=== PATIENT | female | born 1970 | race Caucasian/White ===

== ENCOUNTER 2021-03-29 15:44 | Inpatient (IN) ==
[2021-03-29] MEDS ORDERED: NS 1000 ML 1,000 ML IV ONE (16:06)
--- NOTE | 2021-03-29 16:06 | DR.NAUSEAF ---
HPI Time Seen Time Seen by Provider: 03/29/21 16:04 Primary Care Physician Primary Care Physician: NFD Complaints Chief Complaint:: PT C/O NAUSEA, VOMITING AND DIARRHEA X 1 MONTH.PT C/O DARK TARRY STOOL.. PT C/O PAIN INTO BILATERAL FLANK PAIN. COVID-19 Coronavirus risk:travel/contact w/high risk person: No Has patient experienced Coronavirus symptoms: No Reviewed Nurses Notes Reviewed: Yes Source History Provided: Patient Mode of Arrival Mode of Arrival: Ambulatory Timing Onset of Chief Complaint: 03/29/21 PMH PMH Past Medical History: No Past Medical History Comment: HEPATITIS B Past Surgical History: No Family History History of Family Medical Conditions: Yes Family Medical History: Cancer Social History Does patient currently use any type of tobacco product: Yes Have you used tobacco products in the last 12 months: Yes Type of Tobacco Use: Cigarettes Does any household member use tobacco: No Alcohol Use: Heavy Do you use any recreational Drugs:: No Lives With: Family Lives Where: Home Travel Risk Coronavirus risk:travel/contact w/high risk person: No Has patient experienced Coronavirus symptoms: No Infectious screening In the last 2 months have you had wt loss of >10#?: NO Have you had fever, night sweats or hemotysis?: No Have you traveled outside the country in the last 6 months?: No Isolation: Standard ROS Review of Systems Constitutional: See HPI, Weakness and Fatigue; negative Fever Eyes: No Symptoms Reported and See HPI ENTM: No Symptoms Reported and See HPI; negative Nose Discharge and Nose Congestion Respiratoy: No Symptoms Reported and See HPI; negative Moist Cough, Short of Breath and Wheezing Cardiovascular: No Symptoms Reported and See HPI; negative Chest Pain Gastrointestinal/Abdominal: See HPI, Abdominal Pain, Diarrhea, Nausea and Vom iting; negative Constipation Genitourinary: No Symptoms Reported and See HPI; negative Dysuria, Frequency and Hematuria Neurological: See HPI and Weakness; negative Headache and Dizziness Musculoskeletal: No Symptoms Reported, See HPI and Muscle Pain; negative Back Pain Integumentary: No Symptoms Reported and See HPI; negative Change in Color, Rash and Juandice Hematologic/Lymphatic: No Symptoms Reported and See HPI Endocrine: No Symptoms Reported and See HPI Psychiatric: No Symptoms Reported and See HPI All Other Systems: Reviewed and Negative PE Vital Signs Vitals: Temperature 98.5 F Pulse Rate 98 Respiratory Rate 20 Blood Pressure [Left Arm] 138/72 Blood Pressure [Right Arm] 138/78 Blood Pressure 140/82 O2 Sat by Pulse Oximetry 95 General Limitations: No Limitations General Appearance: Alert and In No Apparent Distress Head Head Exam: Normal Inspection Eyes Eye exam: Normal Appearance ENT ENT Exam: Normal Exam Neck Neck Exam: Normal Inspection Chest Chest Inspection: Normal Inspection Respiratory Respiratory Exam: Normal Lung Sounds Bilat Respiratory Exam: Bilateral: Clear to Auscultation Cardiovascular Cardiovascular Exam: Regular Rate and Normal Rhythm Abdominal Exam Abdominal Exam: Normal Inspection, Normal Bowel Sounds and Soft Rectal Rectal Exam: Deferred External Exam: Female: Deferred : Speculum Exam (Female): Deferred : Bimanual Exam (female): Deferred Extremities Extremities Exam: Normal Inspection Back Back Exam: Normal Inspection Neurologic Neurological Exam: Alert and Oriented X3 Psychiatric Psychiatric Exam: Normal Affect and Normal Mood Skin Skin Exam: Warm, Dry, Intact and Normal Color ROR Labs Reviewed Result Diagrams: 03/29/21 16:00 03/29/21 16:00 Laboratory: 03/29/21 19:28 Stool - Final WBC 19.1 X10^3/uL (3.6-10.0) H 03/29/21 16:00 RBC 4.56 X10^6/uL (3.5-5.4) 03/29/21 16:00 Hgb 14.4 g/dL (12.0-16.0) 03/29/21 16:00 Hct 41.6 % (36.0-47.0) 03/29/21 16:00 MCV 91.1 fL (80.0-100.0) 03/29/21 16:00 MCH 31.6 pg (27.0-34.0) 03/29/21 16:00 MCHC 34.6 g/dL (33.0-35.0) 03/29/21 16:00 RDW 13.8 % (11.6-16.5) 03/29/21 16:00 Plt Count 369 X10^3/uL (150.0-450.0) 03/29/21 16:00 MPV 7.1 fL (7.4-11.0) L 03/29/21 16:00 Neut % (Auto) 81.4 % (42.0-75.0) H 03/29/21 16:00 Lymph % (Auto) 6.9 % (21.0-51.0) L 03/29/21 16:00 [place] % (Auto) 10.7 % (0.0-13.0) 03/29/21 16:00 Eos % (Auto) 0.5 % (0.9-2.9) L 03/29/21 16:00 Baso % (Auto) 0.5 % (0.2-1.0) 03/29/21 16:00 Neut # (Auto) 15.6 x10^3/uL (2.2-4.8) H 03/29/21 16:00 Lymph # (Auto) 1.3 X10^3/uL (1.3-2.9) 03/29/21 16:00 [place] # (Auto) 2.0 x10^3/uL (0.3-0.8) H 03/29/21 16:00 Eos # (Auto) 0.1 x10^3/uL (0.0-0.2) 03/29/21 16:00 Baso # (Auto) 0.1 X10^3/uL (0.0-0.1) 03/29/21 16:00 Absolute Nucleated RBC 0.0 /100WBC 03/29/21 16:00 Sodium 136 mmol/L (136-145) 03/29/21 16:00 Corrected Sodium 137 mmol/L (136-145) 03/29/21 16:00 Potassium 3.5 mmol/L (3.5-5.1) 03/29/21 16:00 Chloride 98 mmol/L (98-107) 03/29/21 16:00 Carbon Dioxide 23.6 mmol/L (21-32) 03/29/21 16:00 BUN 5 mg/dL (7-18) L 03/29/21 16:00 Creatinine 0.65 mg/dL (0.55-1.02) 03/29/21 16:00 Est GFR (MDRD) Af Amer > 60 (>60) 03/29/21 16:00 Est GFR (MDRD) Non-Af > 60 (>60) 03/29/21 16:00 Glucose 131 mg/dL (65-99) H 03/29/21 16:00 Calcium 8.6 mg/dL (8.5-10.1) 03/29/21 16:00 Corrected Calcium 9.4 mg/dL (8.5-10.1) 03/29/21 16:00 Total Bilirubin 0.50 mg/dL (0.2-1.0) 03/29/21 16:00 AST 19 Units/L (15-37) 03/29/21 16:00 ALT 18 Units/L (12-78) 03/29/21 16:00 Alkaline Phosphatase 160 Units/L (46-116) H 03/29/21 16:00 Total Protein 8.1 g/dL (6.4-8.2) 03/29/21 16:00 Albumin 3.0 g/dL (3.4-5.0) L 03/29/21 16:00 Globulin 5.1 g/dL (2.5-4.5) H 03/29/21 16:00 Albumin/Globulin Ratio 0.6 Ratio (1.1-2.1) L 03/29/21 16:00 Amylase 26 Units/L (25-115) 03/29/21 16:00 Lipase 100 Units/L (73-393) 03/29/21 16:00 Specimen Type Clean catch urine 03/29/21 18:15 Urine Color Yellow (YELLOW) 03/29/21 18:15 Urine Appearance Clear (CLEAR) 03/29/21 18:15 Urine pH 6.0 (5.0 - 8.0) 03/29/21 18:15 Ur Specific [place] 1.010 (1.000-1.030) 03/29/21 18:15 Urine Protein Negative (NEGATIVE) 03/29/21 18:15 Urine Glucose (UA) Negative (NEGATIVE) 03/29/21 18:15 Urine Ketones Negative (NEGATIVE) 03/29/21 18:15 Urine Occult Blood Negative (NEGATIVE) 03/29/21 18:15 Urine Nitrite Negative (NEGATIVE) 03/29/21 18:15 Urine Bilirubin Negative (NEGATIVE) 03/29/21 18:15 Urine Urobilinogen 1+ (NORMAL) 03/29/21 18:15 Ur Leukocyte Esterase Negative (NEGATIVE) 03/29/21 18:15 Urine RBC 0-2 /HPF (0-3) 03/29/21 18:15 Urine WBC None seen /HPF (0-5) 03/29/21 18:15 Ur Squamous Epith Cells Few /HPF (NEGATIVE) 03/29/21 18:15 Urine Bacteria 1+ /HPF (NEGATIVE) 03/29/21 18:15 Ur Culture Indicated? No/not indicated 03/29/21 18:15 Stool Description 20g liquid brown 03/29/21 19:28 Stool Description 20g liquid brown 03/29/21 19:28 Stl Occult Blood (IFOB) Positive (NEGATIVE) A 03/29/21 19:28 Stool for White Cells Positive (NEGATIVE) A 03/29/21 19:28 Stl C. diff Tox B Gene Negative (NEGATIVE) 03/29/21 19:28 Stl C. diff [id number]-[id number] Presumptive negative (NEGATIVE) 03/29/21 19:28 Stool H. pylori Ag Negative (NEGATIVE) 03/29/21 19:28 Cryptosporid parvum Ag Negative (NEGATIVE) 03/29/21 19:28 Giardia lamblia Ag Positive (NEGATIVE) A 03/29/21 19:28 SARS CoV-2 RNA Rapid KYLIE Negative (NEGATIVE) 03/29/21 21:40 Opioid Opioid Risk Tool Age (Arie box if 16-45): No History of Preadolescent Sexual Abuse: No Total: 0 Total Score Risk Category: Low Risk Copyright: Migue SANCHEZ predicting aberrant behaviors Instructions Forms: Precautions for COVID19 Patient Portal Social Distancing
[2021-03-29] MEDS ORDERED: ZOFRAN INJ 4 MG VIAL IVP ONE (16:08)
[2021-03-29] MEDS ORDERED: PEPCID 20 MG IV PREMIX* 20 MG/50 ML BAG IV ONE ×2 (16:08→16:14)
[2021-03-29] MEDS ORDERED: ZOFRAN INJ 4 MG VIAL ONE (16:14)
[2021-03-29] MEDS ORDERED: NS 1000 ML 1,000 ML ONE ×2 (16:14→21:51)
[2021-03-29 16:22] LABS: BASOPHILS # (AUTO) 0.1 X10^3/uL (0.0-0.1); BASOPHILS % (AUTO) 0.5 % (0.2-1.0); EOSINOPHILS # (AUTO) 0.1 x10^3/uL (0.0-0.2); EOSINOPHILS % (AUTO) 0.5 % (0.9-2.9); HEMATOCRIT 41.6 % (36.0-47.0); HEMOGLOBIN 14.4 g/dL (12.0-16.0); LYMPHOCYTES # (AUTO) 1.3 X10^3/uL (1.3-2.9); LYMPHOCYTES % (AUTO) 6.9 % (21.0-51.0); MEAN CORPUSCULAR HEMOGLOBIN 31.6 pg (27.0-34.0); MEAN CORPUSCULAR HGB CONC 34.6 g/dL (33.0-35.0); MEAN CORPUSCULAR VOLUME 91.1 fL (80.0-100.0); MEAN PLATELET VOLUME 7.1 fL (7.4-11.0); MONOCYTES % (AUTO) 10.7 % (0.0-13.0); NEUTROPHILS # (AUTO) 15.6 x10^3/uL (2.2-4.8); NEUTROPHILS % (AUTO) 81.4 % (42.0-75.0); PLATELET COUNT 369 X10^3/uL (150.0-450.0); RED BLOOD COUNT 4.56 X10^6/uL (3.5-5.4); RED CELL DISTRIBUTION WIDTH 13.8 % (11.6-16.5); WHITE BLOOD COUNT 19.1 X10^3/uL (3.6-10.0)
[2021-03-29 16:30] LABS: ALANINE AMINOTRANSFERASE 18 Units/L (12-78); ALKALINE PHOSPHATASE 160 Units/L (46-116); AMYLASE 26 Units/L (25-115); ASPARTATE AMINO TRANSFERASE 19 Units/L (15-37); BLOOD UREA NITROGEN 5 mg/dL (7-18); CALCIUM 8.6 mg/dL (8.5-10.1); CARBON DIOXIDE 23.6 mmol/L (21-32); CHLORIDE 98 mmol/L (98-107); COR CA(FOR HYPOALB) 9.4 mg/dL (8.5-10.1); COR NA(FOR HYPERGLY) 137 mmol/L (136-145); CREATININE 0.65 mg/dL (0.55-1.02); LIPASE 100 Units/L (73-393); SODIUM 136 mmol/L (136-145); TOTAL PROTEIN 8.1 g/dL (6.4-8.2); eGFR NON BLACK RACES > 60 (>60)
[2021-03-29] MEDS ORDERED: NS 100 ML IV 100 ML ONE (16:48)
[2021-03-29 18:41] LABS: BILIRUBIN,URINE NEGATIVE (NEGATIVE); BLOOD/HEMOGLOBIN,URINE NEGATIVE (NEGATIVE); GLUCOSE, URINE NEGATIVE (NEGATIVE); KETONES,URINE NEGATIVE (NEGATIVE); LEUKOCYTE ESTERASE ,URINE NEGATIVE (NEGATIVE); NITRITES,URINE NEGATIVE (NEGATIVE); PROTEIN,URINE NEGATIVE (NEGATIVE); UROBILINOGEN,URINE 1+ (NORMAL)
[2021-03-29 18:45] LABS: APPEARANCE,URINE CLEAR (CLEAR); COLOR,URINE YELLOW (YELLOW)
[2021-03-29 18:49] LABS: RBC,URINE 0-2 /HPF (0-3)
[2021-03-29 18:50] LABS: BACTERIA,URINE 1+ /HPF (NEGATIVE); SQUAMOUS EPITHELIAL CELL,UR FEW /HPF (NEGATIVE)
--- NOTE | 2021-03-29 19:42 | CT ---
EXAM: CT ABDOMEN AND PELVIS WITH INTRAVENOUS CONTRASTHISTORY: Nausea, vomiting, and diarrhea x1 month. Bilateral flank pain. Dark tarry stool.TECHNIQUE: Spiral axial CT images are obtained through the abdomen and pelvis with the administration of oral contrast and intravenous contrast. Additional coronal and sagittal reformatted images are reconstructed.DOSIMETRY: Total DLP 492.6 mGycm; CTDI 4.7 mGyCOMPARISON: None available.FINDINGS:GASTROINTESTINAL TRACT: There is diffuse thickening of the gastric wall, especially the mid body of the stomach, with perigastric stranding; DDx includes gastritis and infiltrating neoplastic disease (rule out lienitis plastica/scirrhous adenocarcinoma). There is focal circumferential thickening (up to 1.2 cm) and up to 5.2 cm dilatation without the distal transverse colon (abutting the greater curvature of the stomach); DDx includes infectious colitis; cannot rule out infiltrating neoplastic disease (colon cancer). There is evidence for direct communication/fistula between the thickened greater curvature of the body of the stomach and thickened segment of the distal transverse colon (axial image 19?22; sagittal image 18?20; coronal image 14?17, with oral contrast within the stomach as well as the large bowel loops. Clinical correlation is advised. A normal-appearing appendix is seen. No evidence for diverticulosis or diverticulitis is seen.There is no evidence for bowel herniation, bowel obstruction, colitis or diverticulitis. A normal-appearing appendix is seen.GENITOURINARY SYSTEM: The kidneys are unremarkable. There is no ureteral calculus or stigmata of obstructive uropathy. The urinary bladder is grossly unremarkable for a non-dedicated exam.REPRODUCTIVE SYSTEM: The uterus and adnexa appear grossly unremarkable for a CT scan. Consider follow-up dedicated imaging as clinically warranted.CT ABDOMEN: Aortoiliac atherosclerotic disease, without aneurysm formation or dissection. The liver, spleen, pancreas, adrenal glands, gallbladder, and inferior vena cava are within normal limits for a CT scan. There is no intra-abdominal or retroperitoneal lymphadenopathy, free fluid, or free air seen. No abdominal herniation is noted.CT PELVIS: The visualized bony structures are within normal limits. No pelvic sidewall or inguinal lymphadenopathy is seen. No inguinal herniation is noted. No free fluid or free air is seen.LUNG BASES: The lung bases are clear.IMPRESSION:1. Diffuse thickening of the gastric wall, especially the mid body of the stomach, with perigastric stranding; DDx includes gastritis and infiltrating neoplastic disease (rule out lienitis plastica/scirrhous adenocarcinoma).2. Focal (approximately 9 cm long) circumferential thickening (up to 1.2 cm) and up to 5.2 cm dilatation without the distal transverse colon (abutting the greater curvature of the stomach); DDx includes infectious colitis; cannot rule out infiltrating neoplastic disease (colon cancer).3. Evidence for direct communication/fistula between the thickened greater curvature of the body of the stomach and thickened segment of the distal transverse colon (axial image 19?22; sagittal image 18?20; coronal image 14?17, with oral contrast within the stomach as well as the large bowel loops. Clinical correlation is advised.4. No evidence for pyelonephritis, renal stone disease or obstructive uropathy.5. No free fluid, free air, mass lesions, or lymphadenopathy seen.Electronically signed by: Moshe Vigil (Mar 29, 2021 19:41:03)
[2021-03-29 20:14] LABS: CRYPTOSPORIDIUM PARVUM ANTIGEN NEGATIVE (NEGATIVE)
[2021-03-29 20:15] LABS: GIARDIA LAMBLIA ANTIGEN POSITIVE (NEGATIVE)
[2021-03-29] MEDS ORDERED: FLAGYL IV PREMIX 500 MG BAG 500 MG/100 ML BAG IV ONE ×2 (21:39→21:50)
[2021-03-29] MEDS ORDERED: LIBRIUM PO ONE ×2 (21:40→21:49)
[2021-03-29] MEDS: NS 1000 ML 1,000 ML IV SCH (22:02)
[2021-03-29 23:27] VITALS: BMI 20.7
[2021-03-30] MEDS ORDERED: NICOTINE PATCH TD ONE (00:36)
[2021-03-30] MEDS ORDERED: VANCOMYCIN IV *PREMIX 1 G/200 ML BAG 1 G/200 ML PIGGYBACK IV SCH (01:02)
[2021-03-30] MEDS ORDERED: ATIVAN INJ 2 MG VIAL IVP PRN (01:04)
[2021-03-30] MEDS ORDERED: PHARMACY CONSULT - VANCOMYCIN XX SCH (02:00)
[2021-03-30 05:39] LABS: BASOPHILS % (AUTO) 0.4 % (0.2-1.0); EOSINOPHILS # (AUTO) 0.1 x10^3/uL (0.0-0.2); EOSINOPHILS % (AUTO) 0.9 % (0.9-2.9); HEMATOCRIT 34.3 % (36.0-47.0); LYMPHOCYTES # (AUTO) 1.2 X10^3/uL (1.3-2.9); LYMPHOCYTES % (AUTO) 9.4 % (21.0-51.0); MEAN CORPUSCULAR HEMOGLOBIN 31.2 pg (27.0-34.0); MEAN CORPUSCULAR HGB CONC 34.3 g/dL (33.0-35.0); MEAN CORPUSCULAR VOLUME 91.1 fL (80.0-100.0); MEAN PLATELET VOLUME 7.5 fL (7.4-11.0); MONOCYTES # (AUTO) 1.2 x10^3/uL (0.3-0.8); MONOCYTES % (AUTO) 9.6 % (0.0-13.0); NEUTROPHILS % (AUTO) 79.7 % (42.0-75.0); PLATELET COUNT 271 X10^3/uL (150.0-450.0); RED BLOOD COUNT 3.76 X10^6/uL (3.5-5.4); RED CELL DISTRIBUTION WIDTH 13.9 % (11.6-16.5); WHITE BLOOD COUNT 12.5 X10^3/uL (3.6-10.0)
[2021-03-30] MEDS: FLAGYL IV PREMIX 500 MG BAG 500 MG/100 ML BAG IV SCH ×4 (05:46→21:10)
[2021-03-30 05:47] LABS: HEMOGLOBIN 11.7 g/dL (12.0-16.0)
[2021-03-30] MEDS: NICOTINE PATCH TD SCH ×2 (05:47→09:10)
[2021-03-30 06:00] LABS: ALANINE AMINOTRANSFERASE 12 Units/L (12-78); ALBUMIN 2.3 g/dL (3.4-5.0); ALKALINE PHOSPHATASE 118 Units/L (46-116); ASPARTATE AMINO TRANSFERASE 13 Units/L (15-37); BLOOD UREA NITROGEN 4 mg/dL (7-18); CALCIUM 7.9 mg/dL (8.5-10.1); CARBON DIOXIDE 22.8 mmol/L (21-32); CHLORIDE 105 mmol/L (98-107); COR CA(FOR HYPOALB) 9.3 mg/dL (8.5-10.1); CREATININE 0.38 mg/dL (0.55-1.02); MAGNESIUM 1.5 mg/dL (1.7-2.9); SODIUM 139 mmol/L (136-145); TOTAL PROTEIN 6.1 g/dL (6.4-8.2); eGFR NON BLACK RACES > 60 (>60)
[2021-03-30] MEDS: NS 1000 ML 1,000 ML IV SCH ×2 (06:00→17:45)
[2021-03-30] MEDS: VANCOMYCIN HCL 1 G in D5W 250 ML IV 250 ML IV SCH ×2 (06:19→18:58)
[2021-03-30] MEDS: ZOSYN VIAL 3.375 GRAMS 3.375 G in NS 100 ML IV + SPIKE MINIBAG* 100 ML IV SCH ×2 (06:23→06:24)
[2021-03-30] MEDS: NS 1000 ML 1,000 ML with MAGNESIUM SULFATE 50% INJ VIAL 1 G, MVI INJ (ADULT) 10 ML IV SCH ×3 (06:32)
[2021-03-30] MEDS: PROTONIX TAB 40 MG PO SCH (09:11)
--- NOTE | 2021-03-30 11:15 | DR.H&P ---
H&P History & Physical for Day of: H&P Date: 03/30/21 Chief Complaint Chief Complaint: Presented with abdominal pain diarrhea. Allergies Allergies Allergy/AdvReac Type Severity Reaction Status Date / Time acetaminophen [From [facility]] Allergy Verified 06/11/20 17:31 hydrocodone [From [facility]] Allergy Verified 06/11/20 17:31 penicillin G Allergy Verified 06/11/20 17:31 History of Present Illness History of Present Illness: 50-year-old female history of cigarette abuse, 3 packs today, and alcohol abuse, up to a 12 pack of beer daily events emergency room complaining of nausea vomiting diarrhea was some mild abdominal pain. 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 Past Medical History Past Medical History: Liver Disease (Hepatitis B) Family History Family Medical History: Cancer and Hypertension Social History Does patient currently use any type of tobacco product: Yes Have you used tobacco products in the last 12 months: Yes Type of Tobacco Use: Cigarettes How many years tobacco product used: 30 Packs per day or dips/chews per day: 3 Does any household member use tobacco: No Alcohol Use: Heavy and DAILY Drug Use: None Medications Home Medications: acetaminophen [From [facility]] Allergy (Verified 06/11/20 17:31) hydrocodone [From [facility]] Allergy (Verified 06/11/20 17:31) penicillin G Allergy (Verified 06/11/20 17:31) CONTINUE taking the following medications NK 03/30/21 [History] Labs Result Diagrams: 03/30/21 04:18 03/30/21 04:18 Labs: 03/29/21 19:28 Stool Stool Culture - Preliminary 03/29/21 19:28 Stool - Final Laboratory WBC 12.5 X10^3/uL (3.6-10.0) H 03/30/21 04:18 RBC 3.76 X10^6/uL (3.5-5.4) 03/30/21 04:18 Hgb 11.7 g/dL (12.0-16.0) L D 03/30/21 04:18 Hct 34.3 % (36.0-47.0) L 03/30/21 04:18 MCV 91.1 fL (80.0-100.0) 03/30/21 04:18 MCH 31.2 pg (27.0-34.0) 03/30/21 04:18 MCHC 34.3 g/dL (33.0-35.0) 03/30/21 04:18 RDW 13.9 % (11.6-16.5) 03/30/21 04:18 Plt Count 271 X10^3/uL (150.0-450.0) 03/30/21 04:18 MPV 7.5 fL (7.4-11.0) 03/30/21 04:18 Neut % (Auto) 79.7 % (42.0-75.0) H 03/30/21 04:18 Lymph % (Auto) 9.4 % (21.0-51.0) L 03/30/21 04:18 [place] % (Auto) 9.6 % (0.0-13.0) 03/30/21 04:18 Eos % (Auto) 0.9 % (0.9-2.9) 03/30/21 04:18 Baso % (Auto) 0.4 % (0.2-1.0) 03/30/21 04:18 Neut # (Auto) 10.0 x10^3/uL (2.2-4.8) H 03/30/21 04:18 Lymph # (Auto) 1.2 X10^3/uL (1.3-2.9) L 03/30/21 04:18 [place] # (Auto) 1.2 x10^3/uL (0.3-0.8) H 03/30/21 04:18 Eos # (Auto) 0.1 x10^3/uL (0.0-0.2) 03/30/21 04:18 Baso # (Auto) 0.0 X10^3/uL (0.0-0.1) 03/30/21 04:18 Absolute Nucleated RBC 0.0 /100WBC 03/30/21 04:18 PT 12.6 SECONDS (11.8-14.3) 03/30/21 04:18 INR Target Range - 03/30/21 04:18 INR 0.99 (0.8-1.3) 03/30/21 04:18 APTT 34.0 SECONDS (22.9-36.5) 03/30/21 04:18 PTT Comment - 03/30/21 04:18 Sodium 139 mmol/L (136-145) 03/30/21 04:18 Corrected Sodium TNP 03/30/21 04:18 Potassium 3.3 mmol/L (3.5-5.1) L 03/30/21 04:18 Chloride 105 mmol/L (98-107) 03/30/21 04:18 Carbon Dioxide 22.8 mmol/L (21-32) 03/30/21 04:18 BUN 4 mg/dL (7-18) L 03/30/21 04:18 Creatinine 0.38 mg/dL (0.55-1.02) L 03/30/21 04:18 Est GFR (MDRD) Af Amer > 60 (>60) 03/30/21 04:18 Est GFR (MDRD) Non-Af > 60 (>60) 03/30/21 04:18 Glucose 87 mg/dL (65-99) 03/30/21 04:18 Calcium 7.9 mg/dL (8.5-10.1) L 03/30/21 04:18 Corrected Calcium 9.3 mg/dL (8.5-10.1) 03/30/21 04:18 Magnesium 1.5 mg/dL (1.7-2.9) L 03/30/21 04:18 Total Bilirubin 0.50 mg/dL (0.2-1.0) 03/30/21 04:18 AST 13 Units/L (15-37) L 03/30/21 04:18 ALT 12 Units/L (12-78) 03/30/21 04:18 Alkaline Phosphatase 118 Units/L (46-116) H 03/30/21 04:18 Total Protein 6.1 g/dL (6.4-8.2) L 03/30/21 04:18 Albumin 2.3 g/dL (3.4-5.0) L 03/30/21 04:18 Globulin 3.8 g/dL (2.5-4.5) 03/30/21 04:18 Albumin/Globulin Ratio 0.6 Ratio (1.1-2.1) L 03/30/21 04:18 Amylase 26 Units/L (25-115) 03/29/21 16:00 Lipase 100 Units/L (73-393) 03/29/21 16:00 Specimen Type Clean catch urine 03/29/21 18:15 Urine Color Yellow (YELLOW) 03/29/21 18:15 Urine Appearance Clear (CLEAR) 03/29/21 18:15 Urine pH 6.0 (5.0 - 8.0) 03/29/21 18:15 Ur Specific [place] 1.010 (1.000-1.030) 03/29/21 18:15 Urine Protein Negative (NEGATIVE) 03/29/21 18:15 Urine Glucose (UA) Negative (NEGATIVE) 03/29/21 18:15 Urine Ketones Negative (NEGATIVE) 03/29/21 18:15 Urine Occult Blood Negative (NEGATIVE) 03/29/21 18:15 Urine Nitrite Negative (NEGATIVE) 03/29/21 18:15 Urine Bilirubin Negative (NEGATIVE) 03/29/21 18:15 Urine Urobilinogen 1+ (NORMAL) 03/29/21 18:15 Ur Leukocyte Esterase Negative (NEGATIVE) 03/29/21 18:15 Urine RBC 0-2 /HPF (0-3) 03/29/21 18:15 Urine WBC None seen /HPF (0-5) 03/29/21 18:15 Ur Squamous Epith Cells Few /HPF (NEGATIVE) 03/29/21 18:15 Urine Bacteria 1+ /HPF (NEGATIVE) 03/29/21 18:15 Ur Culture Indicated? No/not indicated 03/29/21 18:15 Stool Description 20g liquid brown 03/29/21 19:28 Stool Description 20g liquid brown 03/29/21 19:28 Stl Occult Blood (IFOB) Positive (NEGATIVE) A 03/29/21 19:28 Stool for White Cells Positive (NEGATIVE) A 03/29/21 19:28 Stl C. diff Tox B Gene Negative (NEGATIVE) 03/29/21 19:28 Stl C. diff [id number] Presumptive negative (NEGATIVE) 03/29/21 19:28 Stool H. pylori Ag Negative (NEGATIVE) 03/29/21 19:28 Cryptosporid parvum Ag Negative (NEGATIVE) 03/29/21 19:28 Giardia lamblia Ag Positive (NEGATIVE) A 03/29/21 19:28 SARS CoV-2 RNA Rapid KYLIE Negative (NEGATIVE) 03/29/21 21:40 Review of Systems Constitutional: No Symptoms Reported Eyes: No Symptoms Reported Gastrointestinal: Nausea, Diarrhea and Hematochezia (described as dark) Physical Exam Vital Signs: Temperature 97.6 F Pulse Rate [Right Brachial] 78 Pulse Rate 98 Respiratory Rate 18 Blood Pressure [Left Arm] 143/72 Blood Pressure [Right Arm] 138/78 Blood Pressure 140/82 O2 Sat by Pulse Oximetry 98 Oriented: Normal, Time, Person and Place Eyes: Normal and Other (no scleral icterus) Ear: Normal Respiratory: Clear Throughout Cardiovascular: Normal : Normal Auscultation: Bowel Sounds: Normal Palpation: Other (mild tenderness to LUQ) Skin: Normal Musculoskeletal: Normal Psychiatric: Normal Mood Description: Calm Speech Pattern: Clear Review H&P Reviewed: Yes Patient was examined?: Yes
[2021-03-30] MEDS ORDERED: CITROMA PO ONE (11:27)
[2021-03-30] MEDS ORDERED: DULCOLAX TAB EC 5 MG PO ONE (11:29)
--- NOTE | 2021-03-30 13:35 | NOTE.SOAP ---
Soap Note Note for Day of Date of Exam: 03/30/21 Subjective Data Subjective Data: Taking clear liquids and performing bowel prep with little complaints. Started on nicotine patch. Objective Data Temperature: 97.6 F Pulse Rate: 78 Respiratory Rate: 18 Blood Pressure: 143/72 O2 Sat by Pulse Oximetry: 98 Objective Data: Benign abdomen Assessment Assessment: Question of fistula between stomach , greater curvature and transverse colon. Plan Plan: EGD and colonoscopy tomorrow with possible biopsy.
[2021-03-30] MEDS: CITROMA PO SCH (17:46)
[2021-03-31] MEDS: FLAGYL IV PREMIX 500 MG BAG 500 MG/100 ML BAG IV SCH ×4 (02:13→20:45)
[2021-03-31] MEDS ORDERED: KETALAR ONE (04:36)
[2021-03-31] MEDS ORDERED: XYLOCAINE 2 % (PLAIN) ONE (04:36)
[2021-03-31] MEDS ORDERED: VERSED ONE (04:36)
[2021-03-31] MEDS ORDERED: DIPRIVAN VIAL ONE (04:36)
[2021-03-31] MEDS: VANCOMYCIN HCL 1 G in D5W 250 ML IV 250 ML IV SCH ×2 (05:52→19:46)
[2021-03-31] MEDS: NS 1000 ML 1,000 ML with MAGNESIUM SULFATE 50% INJ VIAL 1 G, MVI INJ (ADULT) 10 ML IV SCH ×3 (05:52)
[2021-03-31] MEDS: NS 1000 ML 1,000 ML IV SCH ×2 (05:53→18:36)
[2021-03-31] MEDS ORDERED: D5 LR 1000 ML 1,000 ML IV ONE (07:10)
--- NOTE | 2021-03-31 08:22 | OR.IMMED ---
IMMEDIATE POST-OP NOTE Immediate Post-Op Note Pre-Op Diagnosis: inflammation of left transverse colon and greater curve of st omach, possible fistula Post-Op Diagnosis: No obvious fistula, No stomach mass or fistula obvious, transverse colon/mass with near complete obstruction. Procedure: EGD and biopsy for h. pylori, colonoscopy and multiple biopsies of transverse colon mass Description of Procedure: see operative summary Surgeon/Student Services Coordinator: Alejandrina Findings: as above Specimens Removed: as above Estimated Blood Loss: none Drains: NONE Complications: none Progress Notes: to floor , probably will need resection of this area of colon Condition: Stable Final Diagnosis: transverse colon mass.
[2021-03-31] MEDS: NICOTINE PATCH TD SCH (09:24)
[2021-03-31] MEDS: PROTONIX TAB 40 MG PO SCH (09:24)
--- NOTE | 2021-03-31 10:30 | NOTE.SOAP ---
Soap Note Note for Day of Date of Exam: 03/31/21 Subjective Data Subjective Data: As EGD and colonoscopy today. Nothing seen in the stomach consistent with a fistula. Area of mass effect with ischemic change of the transverse colon. Multiple biopsies obtained. Near-complete obstruction. Objective Data Temperature: 97.9 F Pulse Rate: 78 Respiratory Rate: 18 Blood Pressure: 132/85 O2 Sat by Pulse Oximetry: 99 Objective Data: Benign abdomen on exam. Assessment Assessment: Mass effect of the transverse colon with abutment of the stomach. Concerned that this is carcinoma. No obvious had Sonja on CT scan. Near- complete obstruction of the colon. I cannot get the, scope through the area of obstruction. Plan Plan: Discussed with the patient and her . She will require resection of this area the transverse colon. I will probably do it in open fashion as she is thin and I can better evaluate the stomach. Pathology is pending but the fact that she is near-complete obstruction of the colon requires surgical intervention now. I discussed the risk and benefits with the patient and her . Will do po bowel prep with P.O. Erythromycin and Neomycin.Has already had mechanical prep.
--- NOTE | 2021-03-31 14:14 | DR.OPNOTE ---
OP NOTE Pre-Op Diagnosis: gastric vs transverse colon mass , possible gastro-colic fistula Post-Op Diagnosis: Colon mass vs ischemic colon with near complete obstruction Procedure Date Date Of Procedure: 03/31/21 Procedure: This patient was taken to the endoscopy suite and placed in the left lower position. Timeout for the procedure obtained. Bite block was placed and the flexible scope introduced into the mouth and into the esophagus. The esophagus was normal as was the gastroesophageal junction. The body of the stomach showed mild inflammation. The duodenum and pylorus were normal. Biopsy obtained of the antrum for H. pylori testing. J maneuver carried out showing no obvious fistula in the stomach. This scope was withdrawn. Patient was turned around and the flexible colonoscope introduced into the anus . On encountering the area in question of the transverse colon it was difficult getting into this area . Once I entered the area it appeared to be a mass with evidence of an ischemia center. Multiple biopsies were obtained. T here was a small area of exit from the mass effect but I could not get the scope through it. This is consistent with near-complete obstruction. No obvious fistula was present. Endoscope was withdrawn slowly showing only some mild sigmoid diverticulosis. Anesthesia Comment: MAC Findings: Stomach showed mild inflammation but no obvious fistula. Colonoscopy revealed ischemic area transverse colon versus mass. There is near-complete obstruction and I could not get beyond this area. Multiple biopsies obtained of the suspicious area of the colon. Biopsy obtained of the stomach for H.pylori testing. Specimen/Pathology: Multiple biopsies of suspicious area of colon , biopsy of stomach for H. pylori testing. EBL: none Complications:: none Disposition/Condition: Pt. tolerated procedure without difficulty. Taken to PACU in stable condition then to floor.
[2021-03-31] MEDS ORDERED: PHARMACY COMMENT IV NR (17:30)
[2021-03-31] MEDS: CITROMA PO SCH (18:36)
[2021-04-01] MEDS: FLAGYL IV PREMIX 500 MG BAG 500 MG/100 ML BAG IV SCH ×4 (03:20→20:23)
[2021-04-01] MEDS: NS 1000 ML 1,000 ML with MAGNESIUM SULFATE 50% INJ VIAL 1 G, MVI INJ (ADULT) 10 ML IV SCH ×6 (04:05→14:58)
[2021-04-01] MEDS ORDERED: MAGNESIUM SULFATE 50% INJ VIAL ONE (05:11)
[2021-04-01] MEDS: VANCOMYCIN HCL 1 G in D5W 250 ML IV 250 ML IV SCH ×2 (05:18→18:07)
[2021-04-01] MEDS: NICOTINE PATCH TD SCH (09:30)
[2021-04-01] MEDS: PROTONIX TAB 40 MG PO SCH (09:30)
[2021-04-01 12:01] LABS: BASOPHILS % (AUTO) 0.4 % (0.2-1.0); EOSINOPHILS # (AUTO) 0.2 x10^3/uL (0.0-0.2); EOSINOPHILS % (AUTO) 2.5 % (0.9-2.9); HEMATOCRIT 33.8 % (36.0-47.0); HEMOGLOBIN 11.5 g/dL (12.0-16.0); LYMPHOCYTES # (AUTO) 1.1 X10^3/uL (1.3-2.9); LYMPHOCYTES % (AUTO) 11.4 % (21.0-51.0); MEAN CORPUSCULAR HEMOGLOBIN 31.5 pg (27.0-34.0); MEAN CORPUSCULAR HGB CONC 34.2 g/dL (33.0-35.0); MEAN CORPUSCULAR VOLUME 92.1 fL (80.0-100.0); MEAN PLATELET VOLUME 6.7 fL (7.4-11.0); MONOCYTES # (AUTO) 1.1 x10^3/uL (0.3-0.8); MONOCYTES % (AUTO) 11.6 % (0.0-13.0); NEUTROPHILS # (AUTO) 6.9 x10^3/uL (2.2-4.8); NEUTROPHILS % (AUTO) 74.1 % (42.0-75.0); PLATELET COUNT 279 X10^3/uL (150.0-450.0); RED BLOOD COUNT 3.67 X10^6/uL (3.5-5.4); RED CELL DISTRIBUTION WIDTH 13.7 % (11.6-16.5); WHITE BLOOD COUNT 9.3 X10^3/uL (3.6-10.0)
[2021-04-01] MEDS: NEOMYCIN 500 MG PO SCH ×3 (13:58→22:31)
--- NOTE | 2021-04-01 18:44 | RAD ---
CHEST, 1 VIEWHISTORY: PRE OP EVAL FOR BOWEL RESECTIONStudy: Single view of the chest.Comparison:NoneFindings:The cardiomediastinal silhouette is normal.No focal consolidations, pleural effusions or pneumothorax. Osseous structures demonstrate no acute abnormality.IMPRESSION:1. No acute cardiopulmonary process.Electronically signed by: DAVIDE HOOVER (Apr 01, 2021 18:42:37)
[2021-04-02] MEDS: NS 1000 ML 1,000 ML with MAGNESIUM SULFATE 50% INJ VIAL 1 G, MVI INJ (ADULT) 10 ML IV SCH ×3 (02:43)
[2021-04-02] MEDS: FLAGYL IV PREMIX 500 MG BAG 500 MG/100 ML BAG IV SCH (02:43)
[2021-04-02] MEDS: VANCOMYCIN HCL 1 G in D5W 250 ML IV 250 ML IV SCH (05:33)
[2021-04-02] MEDS ORDERED: LR 1000 ML IV 1,000 ML IV ONE (07:02)
[2021-04-02] MEDS ORDERED: DUONEB 0.5 MG/3 MG (3 mL) NEB ONE ×2 (07:02→07:14)
[2021-04-02] MEDS ORDERED: ANCEF 1 GRAM IV PREMIX* 1 G/50 ML BAG IV ONE (07:05)
[2021-04-02] MEDS: DUONEB 0.5 MG/3 MG (3 mL) NEB ONE ×2 (07:06→07:25)
[2021-04-02] MEDS ORDERED: BRIDION ONE (07:08)
[2021-04-02] MEDS ORDERED: OFIRMEV IV 1000 MG VIAL 1,000 MG/100 ML VIAL IV ONE (07:09)
[2021-04-02] MEDS ORDERED: ZEMURON 50 MG VIAL ONE (07:09)
[2021-04-02] MEDS ORDERED: FENTANYL INJ 100 mcg ONE (07:09)
[2021-04-02] MEDS ORDERED: MARCAINE or SENSORCAINE 0.25% WITH EPI IJ ONE (07:09)
--- NOTE | 2021-04-02 07:47 | NOTE.SOAP ---
Soap Note Note for Day of Date of Exam: 04/01/21 Subjective Data Subjective Data: Patient doing well. No signs of delirium tremens. She is scheduled today for PO bowel prep with neomycin and erythromycin base. Objective Data Temperature: 98.0 F Pulse Rate: 84 Respiratory Rate: 18 Blood Pressure: 123/78 O2 Sat by Pulse Oximetry: 98 Objective Data: Patient awake and alert. Abdomen is benign. No clinical evidence of alcohol withdrawal. Assessment Assessment: Colon mass of the colon which appears to be in close contact to the stomach with near-complete obstruction of the colon. If I still pending but with significant clinical likelihood of carcinoma and near obstruction this needs to be resected. I explained the procedure the patient which will include a laparotomy with resection of the colon and re-anastomosis. I have explained to her that a portion of her stomach may need to be removed as well. I discussed her risk of bleeding and infection. I discussed the risk of alcohol withdrawal still exists but that is currently being treated . I explained to her the risk of leak and possible colostomy. She understands there is a small risk of as well. I explained to her that I have had a in the family and that I will not be here this weekend and my partner will be covering. She understands and still wants me to be her primary surgeon. Plan Plan: as above
[2021-04-02] MEDS ORDERED: INVANZ INJ 1 GM VIAL 1 GM in NS 100 ML IV + SPIKE MINIBAG* 100 ML IV ONE (08:00)
[2021-04-02] MEDS ORDERED: NS 1000 ML 1,000 ML ONE ×2 (08:24→09:51)
--- NOTE | 2021-04-02 10:26 | OR.IMMED ---
IMMEDIATE POST-OP NOTE Immediate Post-Op Note Pre-Op Diagnosis: Transverse colon mass with infiltration of stomach Post-Op Diagnosis: Same Procedure: Laparotomy, resection transverse colon with composite resection of antrum of stomach, colon reanastamosis, gastro-jejuneostomy Description of Procedure: See operative summary Surgeon/Telecommunication Equipment Repairer: Alejandrina Findings: Transverse colon mass invading the back wall of the distal stomach Specimens Removed: transverse colon and stomach Estimated Blood Loss: 150 cc Complications: none Discharge Progress Notes: To PACU, NG tube in place, moura in place and epidural for pain control Condition: Stable Final Diagnosis: Colon mass invading stomach probable con cancer, await final pathology
[2021-04-02] MEDS ORDERED: NAROPIN EPIDURAL 0.2% 100 ML ONE (10:30)
[2021-04-02] MEDS ORDERED: DILAUDID INJ ONE (10:42)
[2021-04-02] MEDS ORDERED: BENADRYL INJ 50 MG VIAL IVP PRN (10:53)
[2021-04-02] MEDS ORDERED: ZOFRAN INJ 4 MG VIAL IVP PRN (10:53)
[2021-04-02] MEDS ORDERED: REGLAN INJ 10 MG VIAL IVP PRN (10:53)
[2021-04-02] MEDS ORDERED: DILAUDID INJ IVP PRN (10:53)
[2021-04-02] MEDS ORDERED: PHENERGAN INJ 25 MG IM PRN (10:53)
[2021-04-02] MEDS ORDERED: BARHEMSYS INJ IVP PRN (10:53)
--- NOTE | 2021-04-02 10:59 | DR.OPNOTE ---
OP NOTE Pre-Op Diagnosis: Transverse colon mass invading posterior stomach wall Post-Op Diagnosis: Same, probable colon cancer Procedure Date Date Of Procedure: 04/02/21 Procedure: This patient was taken to the operating room and placed in the supine position and general endotracheal anesthesia induced. Epidural catheter had been placed for postoperative pain control. Entire abdomen was prepped and draped in sterile fashion. A timeout for the procedure obtained. Midline incision was made with a number 10 blade knife continuing through the fascia with electrocautery and entering the peritoneum and completing the incision with electrocautery. Palpation of the abdomen revealed a large mass of the midportion of the transverse colon and invading the back wall of the stomach. The gastro-splenic ligated was divided between clamps and tied with 2-0 silk sutures. The white line Toldt was taken down of the left colon. The transverse colon to the right of the midline was dissected free with electrocautery identifying the duodenum. The omentum over the stomach resected down towards the mass and was divided between hemostats and 2-0 silk ties. Once this was done the colon was divided on each side of the mass with a MELISSA 60 mm stapler. The mesentery of the transverse colon divided with hemostats and tied with 2-0 silk suture ligatures. At this point the mass remained adherent to posterior wall the stomach. This could not be removed without complete resection of the distal antrum otherwise the stomach would have been severely narrowed. Stomach was divided just above the pylorus with the MELISSA stapler. The body the stomach divided above the mass with the MELISSA stapler . Entire mass removed in continuity of the colon and the stomach. At this point the 2 ends of the colon were approximated side to side with 2-0 silk sutures. Bowel was clamped proximally and distally . Laparotomy pads placed. The colon opened on both sides and anastomosis carried out with a 60 mm GA stapler. The remaining defect closed with running 3-0 Chromic suture and a 2nd layer of interrupted 2-0 silk sutures sutures. At this point we selected jejunum approximately 110 cm from the ligament of Treitz and brought it underneath the colon This loop of small bowel was approximated to the posterior wall of the stomach with 2-0 silk suture ligatures .Both stomach and jejunum were opened with the electrocautery and MELISSA stapler used to create the anastomosis. Remaining defect closed with running 3-0 Chromic suture and a 2nd layer of interrupted 2-0 silk sutures The mesentery was narrowed down around the jejunostomy ostomy to prevent herniat ion. The duodenal stump was over sewn with interrupted 2-0 silk sutures All bowel contents replaced in the abdomen. It should be noted that the nasogastric tube was placed under direct vision into the stomach pouch. All counts were correct. The fascia closed with running looped # 1 PDS suture. The subcutaneous tissue approximated with interrupted 3 -0 Vicryl sutures. The skin closed with skin darby. Patient extubated and taken to the recovery in good condition. Type of Anesthesia: General Anesthetic w/ETT Anesthesia Comment: Epidural placed for post op pain control Findings: Transverse colon mass invading the posterior wall of the distal stomach. Specimen/Pathology: Composite resection of transverse colon and distal stomach Type of Fluids Used:: Normal Saline (1500 cc) and Lactated Ringers (1000 cc) Total Amount of Fluid Infused:: 2500 Urine output: 100 EBL: 150 Drains/Tubes Placed: Lopez and NG tube Complications:: none Needle/Sponge Count:: correct Disposition/Condition: Pt. tolerated procedure without difficulty. Extubated in the OR and taken to PACU in stable condition.
[2021-04-02] MEDS ORDERED: LR 1000 ML IV 1,000 ML IV SCH (11:00)
[2021-04-02] MEDS: NICOTINE PATCH TD SCH (12:00)
[2021-04-02] MEDS ORDERED: NS 1000 ML 1,000 ML IV ONE (16:32)
[2021-04-02] MEDS ORDERED: TORADOL 30 MG VIAL ONE (21:55)
[2021-04-02] MEDS ORDERED: SUPRANE ONE (21:55)
[2021-04-02] MEDS ORDERED: DIPRIVAN VIAL ONE (21:55)
[2021-04-02] MEDS ORDERED: VERSED ONE (21:55)
[2021-04-02] MEDS ORDERED: DECADRON INJ ONE (21:55)
[2021-04-02] MEDS ORDERED: XYLOCAINE 2 % (PLAIN) ONE (21:55)
[2021-04-02] MEDS ORDERED: ZOFRAN INJ 4 MG VIAL ONE (21:55)
[2021-04-03] MEDS: NS 1000 ML 1,000 ML with MAGNESIUM SULFATE 50% INJ VIAL 1 G, MVI INJ (ADULT) 10 ML IV SCH ×6 (02:45→03:36)
[2021-04-03 06:27] LABS: BASOPHILS % (AUTO) 0.1 % (0.2-1.0); HEMATOCRIT 31.8 % (36.0-47.0); HEMOGLOBIN 10.6 g/dL (12.0-16.0); LYMPHOCYTES % (AUTO) 5.7 % (21.0-51.0); MEAN CORPUSCULAR HGB CONC 33.4 g/dL (33.0-35.0); MONOCYTES # (AUTO) 1.7 x10^3/uL (0.3-0.8); MONOCYTES % (AUTO) 10.2 % (0.0-13.0); NEUTROPHILS # (AUTO) 14.1 x10^3/uL (2.2-4.8); PLATELET COUNT 372 X10^3/uL (150.0-450.0); RED BLOOD COUNT 3.42 X10^6/uL (3.5-5.4); WHITE BLOOD COUNT 16.8 X10^3/uL (3.6-10.0)
[2021-04-03 06:40] LABS: ALANINE AMINOTRANSFERASE 14 Units/L (12-78); ALBUMIN 1.8 g/dL (3.4-5.0); ALKALINE PHOSPHATASE 72 Units/L (46-116); ASPARTATE AMINO TRANSFERASE 19 Units/L (15-37); BLOOD UREA NITROGEN 9 mg/dL (7-18); CALCIUM 7.5 mg/dL (8.5-10.1); CARBON DIOXIDE 18.9 mmol/L (21-32); CHLORIDE 114 mmol/L (98-107); COR CA(FOR HYPOALB) 9.3 mg/dL (8.5-10.1); COR NA(FOR HYPERGLY) 148 mmol/L (136-145); CREATININE 1.08 mg/dL (0.55-1.02); SODIUM 148 mmol/L (136-145); TOTAL PROTEIN 5.5 g/dL (6.4-8.2); eGFR NON BLACK RACES 57 (>60)
[2021-04-03] MEDS: NICOTINE PATCH TD SCH (08:11)
[2021-04-03] MEDS: PROTONIX INJ 40 MG VIAL IVP SCH (08:12)
[2021-04-03] MEDS: DILAUDID INJ IVP PRN ×2 (08:13→10:49)
[2021-04-03] MEDS ORDERED: NAROPIN EPIDURAL 0.2% 100 ML ONE (13:42)
[2021-04-03] MEDS ORDERED: ADRENALINE CHL INJ ONE (14:06)
--- NOTE | 2021-04-03 14:34 | DR.PROGNOT ---
Hospital Progress Notes - Progress Note for Day of: Progress Note Date: 04/03/21 - Chief Complaint Chief Complaint: post op laparotomy , partial colectomy , partial gastrectomy day 1 . doing well. c/o incisional pain. minimal drainage in NGT . fair urine out put . afebrile . - Past Medical Family Social History Past Med/Fam/Surg Hx: No changes since H&P Allergies: Allergies acetaminophen [From [place]] Allergy (Verified 06/11/20 17:31) hydrocodone [From [place]] Allergy (Verified 06/11/20 17:31) penicillin G Allergy (Verified 06/11/20 17:31) - Review Of Systems ROS: No change since H&P - Vital Signs Vital Signs: Temperature 97.5 F Pulse Rate [Right Brachial] 86 Pulse Rate 85 Respiratory Rate 18 Blood Pressure [Left Arm] 146/80 Blood Pressure [Right Arm] 138/78 Blood Pressure 107/68 O2 Sat by Pulse Oximetry 97 - Physical Exam Oriented: Normal, Time, Person, Place Eyes: Normal, Other (no scleral icterus) Ear: Normal Nose: Normal Throat: Normal Respiratory: Normal Cardiovascular: Normal : Normal GI:Auscultation: Decreased GI: Tenderness: Diffuse (soft abdomen withmoderate incisional tenderness ) Skin: Normal Musculoskeletal: Normal Psychiatric: Normal Mood Description: Calm, Appropriate Speech Pattern: Clear, Appropriate - Laboratory and Diagnostics Result Diagrams: 04/03/21 05:37 04/03/21 05:37 Labs: 03/29/21 19:28 Stool Stool Culture - Final 03/29/21 19:28 Stool - Final Laboratory WBC 16.8 X10^3/uL (3.6-10.0) H 04/03/21 05:37 RBC 3.42 X10^6/uL (3.5-5.4) L 04/03/21 05:37 Hgb 10.6 g/dL (12.0-16.0) L 04/03/21 05:37 Hct 31.8 % (36.0-47.0) L 04/03/21 05:37 MCV 93.0 fL (80.0-100.0) 04/03/21 05:37 MCH 31.0 pg (27.0-34.0) 04/03/21 05:37 MCHC 33.4 g/dL (33.0-35.0) 04/03/21 05:37 RDW 14.0 % (11.6-16.5) 04/03/21 05:37 Plt Count 372 X10^3/uL (150.0-450.0) 04/03/21 05:37 MPV 7.0 fL (7.4-11.0) L 04/03/21 05:37 Neut % (Auto) 84.0 % (42.0-75.0) H 04/03/21 05:37 Lymph % (Auto) 5.7 % (21.0-51.0) L 04/03/21 05:37 [place] % (Auto) 10.2 % (0.0-13.0) 04/03/21 05:37 Eos % (Auto) 0.0 % (0.9-2.9) L 04/03/21 05:37 Baso % (Auto) 0.1 % (0.2-1.0) L 04/03/21 05:37 Neut # (Auto) 14.1 x10^3/uL (2.2-4.8) H 04/03/21 05:37 Lymph # (Auto) 1.0 X10^3/uL (1.3-2.9) L 04/03/21 05:37 [place] # (Auto) 1.7 x10^3/uL (0.3-0.8) H 04/03/21 05:37 Eos # (Auto) 0.0 x10^3/uL (0.0-0.2) 04/03/21 05:37 Baso # (Auto) 0.0 X10^3/uL (0.0-0.1) 04/03/21 05:37 Absolute Nucleated RBC 0.0 /100WBC 04/03/21 05:37 PT 12.6 SECONDS (11.8-14.3) 03/30/21 04:18 INR Target Range - 03/30/21 04:18 INR 0.99 (0.8-1.3) 03/30/21 04:18 APTT 34.0 SECONDS (22.9-36.5) 03/30/21 04:18 PTT Comment - 03/30/21 04:18 Sodium 148 mmol/L (136-145) H 04/03/21 05:37 Corrected Sodium 148 mmol/L (136-145) H 04/03/21 05:37 Potassium 3.1 mmol/L (3.5-5.1) L 04/03/21 05:37 Chloride 114 mmol/L (98-107) H 04/03/21 05:37 Carbon Dioxide 18.9 mmol/L (21-32) L 04/03/21 05:37 BUN 9 mg/dL (7-18) 04/03/21 05:37 Creatinine 1.08 mg/dL (0.55-1.02) H 04/03/21 05:37 Est GFR (MDRD) Af Amer > 60 (>60) 04/03/21 05:37 Est GFR (MDRD) Non-Af 57 (>60) L 04/03/21 05:37 Glucose 111 mg/dL (65-99) H 04/03/21 05:37 Calcium 7.5 mg/dL (8.5-10.1) L 04/03/21 05:37 Corrected Calcium 9.3 mg/dL (8.5-10.1) 04/03/21 05:37 Magnesium 1.5 mg/dL (1.7-2.9) L 03/30/21 04:18 Total Bilirubin 0.30 mg/dL (0.2-1.0) 04/03/21 05:37 AST 19 Units/L (15-37) 04/03/21 05:37 ALT 14 Units/L (12-78) 04/03/21 05:37 Alkaline Phosphatase 72 Units/L (46-116) 04/03/21 05:37 Total Protein 5.5 g/dL (6.4-8.2) L 04/03/21 05:37 Albumin 1.8 g/dL (3.4-5.0) L 04/03/21 05:37 Globulin 3.7 g/dL (2.5-4.5) 04/03/21 05:37 Albumin/Globulin Ratio 0.5 Ratio (1.1-2.1) L 04/03/21 05:37 Amylase 26 Units/L (25-115) 03/29/21 16:00 Lipase 100 Units/L (73-393) 03/29/21 16:00 Carcinoembryonic Ag 11.4 ng/mL (0.0-3.0) H 03/30/21 01:19 CA 15-3 Antigen 21 U/L (0-31) 03/30/21 01:19 CA 19-9 Antigen 20 U/mL (0-37) 03/30/21 01:19 Specimen Type Clean catch urine 03/29/21 18:15 Urine Color Yellow (YELLOW) 03/29/21 18:15 Urine Appearance Clear (CLEAR) 03/29/21 18:15 Urine pH 6.0 (5.0 - 8.0) 03/29/21 18:15 Ur Specific [place] 1.010 (1.000-1.030) 03/29/21 18:15 Urine Protein Negative (NEGATIVE) 03/29/21 18:15 Urine Glucose (UA) Negative (NEGATIVE) 03/29/21 18:15 Urine Ketones Negative (NEGATIVE) 03/29/21 18:15 Urine Occult Blood Negative (NEGATIVE) 03/29/21 18:15 Urine Nitrite Negative (NEGATIVE) 03/29/21 18:15 Urine Bilirubin Negative (NEGATIVE) 03/29/21 18:15 Urine Urobilinogen 1+ (NORMAL) 03/29/21 18:15 Ur Leukocyte Esterase Negative (NEGATIVE) 03/29/21 18:15 Urine RBC 0-2 /HPF (0-3) 03/29/21 18:15 Urine WBC None seen /HPF (0-5) 03/29/21 18:15 Ur Squamous Epith Cells Few /HPF (NEGATIVE) 03/29/21 18:15 Urine Bacteria 1+ /HPF (NEGATIVE) 03/29/21 18:15 Ur Culture Indicated? No/not indicated 03/29/21 18:15 Stool Description 20g liquid brown 03/29/21 19:28 Stool Description 20g liquid brown 03/29/21 19:28 Stl Occult Blood (IFOB) Positive (NEGATIVE) A 03/29/21 19:28 Stool for White Cells Positive (NEGATIVE) A 03/29/21 19:28 Stl C. diff Tox B Gene Negative (NEGATIVE) 03/29/21 19:28 Stl C. diff [id number] Presumptive negative (NEGATIVE) 03/29/21 19:28 Stool H. pylori Ag Negative (NEGATIVE) 03/29/21 19:28 Random Vancomycin 9.2 ug/mL 03/31/21 18:49 Cryptosporid parvum Ag Negative (NEGATIVE) 03/29/21 19:28 Giardia lamblia Ag Positive (NEGATIVE) A 03/29/21 19:28 SARS CoV-2 RNA Rapid KYLIE Negative (NEGATIVE) 03/29/21 21:40 Tissue Pathology To follow 04/02/21 09:45 Blood Type O NEGATIVE 04/01/21 11:52 Antibody Screen Negative 04/01/21 11:52 - Assessment and Plan 1: s/p laparotomy day 1 . segmental colectomy and partial gastrectomy for colon mass . alcohol and tabaco abuser . to increase IVF , IV ATB , DVT prophylaxis , incentive spirometer , OOB
[2021-04-03] MEDS: D5 1/2 NS 1000 ML 1,000 ML IV SCH (14:50)
[2021-04-03] MEDS: LEVAQUIN PREMIX IV 500 MG 500 MG/100 ML BAG IV SCH (14:50)
[2021-04-03] MEDS: LOVENOX INJ 40 MG SYR SC SCH (14:50)
[2021-04-04] MEDS: D5 1/2 NS 1000 ML 1,000 ML IV SCH ×6 (00:25→21:35)
[2021-04-04] MEDS: NS 1000 ML 1,000 ML with MAGNESIUM SULFATE 50% INJ VIAL 1 G, MVI INJ (ADULT) 10 ML IV SCH ×3 (00:33)
[2021-04-04] MEDS: NICOTINE PATCH TD SCH (09:28)
[2021-04-04] MEDS: LOVENOX INJ 40 MG SYR SC SCH (09:28)
[2021-04-04] MEDS: LEVAQUIN PREMIX IV 500 MG 500 MG/100 ML BAG IV SCH (09:28)
[2021-04-04] MEDS: MORPHINE SULFATE INJ 4 MG IVP PRN ×3 (09:29→19:07)
[2021-04-04] MEDS: PROTONIX INJ 40 MG VIAL IVP SCH (09:29)
--- NOTE | 2021-04-04 14:49 | DR.PROGNOT ---
Hospital Progress Notes - Progress Note for Day of: Progress Note Date: 04/04/21 - Chief Complaint Chief Complaint: post op laparotomy , partial colectomy , partial gastrectomy day 2 . doing well. c/o incisional pain. minimal drainage in NGT . fair urine out put . WBC 16.8 .. Hgb 10.6. Creat 1.08.. CEA 11.4. afebrile . - Past Medical Family Social History Past Med/Fam/Surg Hx: No changes since H&P Allergies: Allergies acetaminophen [From [place]] Allergy (Verified 06/11/20 17:31) hydrocodone [From [place]] Allergy (Verified 06/11/20 17:31) penicillin G Allergy (Verified 06/11/20 17:31) - Review Of Systems ROS: No change since H&P - Vital Signs Vital Signs: Temperature 97.9 F Pulse Rate [Right Brachial] 92 Pulse Rate 85 Respiratory Rate 18 Blood Pressure [Left Arm] 160/90 Blood Pressure [Right Arm] 138/78 Blood Pressure 107/68 O2 Sat by Pulse Oximetry 98 - Physical Exam Oriented: Normal, Time, Person, Place Eyes: Normal, Other (no scleral icterus) Ear: Normal Nose: Normal Throat: Normal Respiratory: Normal Cardiovascular: Normal : Normal GI:Auscultation: Decreased GI:Palpation: Other (mild tenderness to LUQ) GI: Tenderness: Diffuse (soft abdomen withmoderate incisional tenderness ) Skin: Normal Musculoskeletal: Normal Psychiatric: Normal Mood Description: Calm, Appropriate Speech Pattern: Clear, Appropriate - Laboratory and Diagnostics Result Diagrams: 04/03/21 05:37 04/03/21 05:37 Labs: 03/29/21 19:28 Stool Stool Culture - Final 03/29/21 19:28 Stool - Final Laboratory WBC 16.8 X10^3/uL (3.6-10.0) H 04/03/21 05:37 RBC 3.42 X10^6/uL (3.5-5.4) L 04/03/21 05:37 Hgb 10.6 g/dL (12.0-16.0) L 04/03/21 05:37 Hct 31.8 % (36.0-47.0) L 04/03/21 05:37 MCV 93.0 fL (80.0-100.0) 04/03/21 05:37 MCH 31.0 pg (27.0-34.0) 04/03/21 05:37 MCHC 33.4 g/dL (33.0-35.0) 04/03/21 05:37 RDW 14.0 % (11.6-16.5) 04/03/21 05:37 Plt Count 372 X10^3/uL (150.0-450.0) 04/03/21 05:37 MPV 7.0 fL (7.4-11.0) L 04/03/21 05:37 Neut % (Auto) 84.0 % (42.0-75.0) H 04/03/21 05:37 Lymph % (Auto) 5.7 % (21.0-51.0) L 04/03/21 05:37 [place] % (Auto) 10.2 % (0.0-13.0) 04/03/21 05:37 Eos % (Auto) 0.0 % (0.9-2.9) L 04/03/21 05:37 Baso % (Auto) 0.1 % (0.2-1.0) L 04/03/21 05:37 Neut # (Auto) 14.1 x10^3/uL (2.2-4.8) H 04/03/21 05:37 Lymph # (Auto) 1.0 X10^3/uL (1.3-2.9) L 04/03/21 05:37 [place] # (Auto) 1.7 x10^3/uL (0.3-0.8) H 04/03/21 05:37 Eos # (Auto) 0.0 x10^3/uL (0.0-0.2) 04/03/21 05:37 Baso # (Auto) 0.0 X10^3/uL (0.0-0.1) 04/03/21 05:37 Absolute Nucleated RBC 0.0 /100WBC 04/03/21 05:37 PT 12.6 SECONDS (11.8-14.3) 03/30/21 04:18 INR Target Range - 03/30/21 04:18 INR 0.99 (0.8-1.3) 03/30/21 04:18 APTT 34.0 SECONDS (22.9-36.5) 03/30/21 04:18 PTT Comment - 03/30/21 04:18 Sodium 148 mmol/L (136-145) H 04/03/21 05:37 Corrected Sodium 148 mmol/L (136-145) H 04/03/21 05:37 Potassium 3.1 mmol/L (3.5-5.1) L 04/03/21 05:37 Chloride 114 mmol/L (98-107) H 04/03/21 05:37 Carbon Dioxide 18.9 mmol/L (21-32) L 04/03/21 05:37 BUN 9 mg/dL (7-18) 04/03/21 05:37 Creatinine 1.08 mg/dL (0.55-1.02) H 04/03/21 05:37 Est GFR (MDRD) Af Amer > 60 (>60) 04/03/21 05:37 Est GFR (MDRD) Non-Af 57 (>60) L 04/03/21 05:37 Glucose 111 mg/dL (65-99) H 04/03/21 05:37 Calcium 7.5 mg/dL (8.5-10.1) L 04/03/21 05:37 Corrected Calcium 9.3 mg/dL (8.5-10.1) 04/03/21 05:37 Magnesium 1.5 mg/dL (1.7-2.9) L 03/30/21 04:18 Total Bilirubin 0.30 mg/dL (0.2-1.0) 04/03/21 05:37 AST 19 Units/L (15-37) 04/03/21 05:37 ALT 14 Units/L (12-78) 04/03/21 05:37 Alkaline Phosphatase 72 Units/L (46-116) 04/03/21 05:37 Total Protein 5.5 g/dL (6.4-8.2) L 04/03/21 05:37 Albumin 1.8 g/dL (3.4-5.0) L 04/03/21 05:37 Globulin 3.7 g/dL (2.5-4.5) 04/03/21 05:37 Albumin/Globulin Ratio 0.5 Ratio (1.1-2.1) L 04/03/21 05:37 Amylase 26 Units/L (25-115) 03/29/21 16:00 Lipase 100 Units/L (73-393) 03/29/21 16:00 Carcinoembryonic Ag 11.4 ng/mL (0.0-3.0) H 03/30/21 01:19 CA 15-3 Antigen 21 U/L (0-31) 03/30/21 01:19 CA 19-9 Antigen 20 U/mL (0-37) 03/30/21 01:19 Specimen Type Clean catch urine 03/29/21 18:15 Urine Color Yellow (YELLOW) 03/29/21 18:15 Urine Appearance Clear (CLEAR) 03/29/21 18:15 Urine pH 6.0 (5.0 - 8.0) 03/29/21 18:15 Ur Specific [place] 1.010 (1.000-1.030) 03/29/21 18:15 Urine Protein Negative (NEGATIVE) 03/29/21 18:15 Urine Glucose (UA) Negative (NEGATIVE) 03/29/21 18:15 Urine Ketones Negative (NEGATIVE) 03/29/21 18:15 Urine Occult Blood Negative (NEGATIVE) 03/29/21 18:15 Urine Nitrite Negative (NEGATIVE) 03/29/21 18:15 Urine Bilirubin Negative (NEGATIVE) 03/29/21 18:15 Urine Urobilinogen 1+ (NORMAL) 03/29/21 18:15 Ur Leukocyte Esterase Negative (NEGATIVE) 03/29/21 18:15 Urine RBC 0-2 /HPF (0-3) 03/29/21 18:15 Urine WBC None seen /HPF (0-5) 03/29/21 18:15 Ur Squamous Epith Cells Few /HPF (NEGATIVE) 03/29/21 18:15 Urine Bacteria 1+ /HPF (NEGATIVE) 03/29/21 18:15 Ur Culture Indicated? No/not indicated 03/29/21 18:15 Stool Description 20g liquid brown 03/29/21 19:28 Stool Description 20g liquid brown 03/29/21 19:28 Stl Occult Blood (IFOB) Positive (NEGATIVE) A 03/29/21 19:28 Stool for White Cells Positive (NEGATIVE) A 03/29/21 19:28 Stl C. diff Tox B Gene Negative (NEGATIVE) 03/29/21 19:28 Stl C. diff [id number] Presumptive negative (NEGATIVE) 03/29/21 19:28 Stool H. pylori Ag Negative (NEGATIVE) 03/29/21 19:28 Random Vancomycin 9.2 ug/mL 03/31/21 18:49 Cryptosporid parvum Ag Negative (NEGATIVE) 03/29/21 19:28 Giardia lamblia Ag Positive (NEGATIVE) A 03/29/21 19:28 SARS CoV-2 RNA Rapid KYLIE Negative (NEGATIVE) 03/29/21 21:40 Tissue Pathology To follow 04/02/21 09:45 Blood Type O NEGATIVE 04/01/21 11:52 Antibody Screen Negative 04/01/21 11:52 - Assessment and Plan 1: s/p laparotomy day 2 . segmental colectomy and partial gastrectomy for colon mass . alcohol and tabaco abuser . to D/C NGT and Lopez , keep npo , IVF , IV ATB , DVT prophylaxis , incentive spirometer , OOB
[2021-04-04] MEDS ORDERED: POTASSIUM CHL 40 MEQ/NS 0.45% 500 ML IV PRN (16:40)
[2021-04-04] MEDS ORDERED: POTASSIUM CHLORIDE LIQ 20 MEQ UDC PO PRN (16:40)
[2021-04-04] MEDS ORDERED: POTASSIUM CHL 60 MEQ/NS 0.45% 500 ML IV PRN (16:40)
[2021-04-04] MEDS ORDERED: MAGNESIUM SULFATE 1 GRAM/100 mL PREMIX 1 GM/100 ML BAG IV PRN (16:40)
[2021-04-04] MEDS ORDERED: MICRO K EXTEN CAP 10 MEQ PO PRN (16:40)
[2021-04-04] MEDS ORDERED: K-RIDER 10 MEQ/NS 100 ML 10 MEQ/100 ML BAG IV PRN (16:40)
[2021-04-04] MEDS ORDERED: KLOR-CON PO PRN (16:40)
[2021-04-04] MEDS: K-DUR TAB 20 MEQ PO PRN (17:08)
[2021-04-05] MEDS: MORPHINE SULFATE INJ 4 MG IVP PRN ×5 (00:03→22:28)
[2021-04-05] MEDS: NS 1000 ML 1,000 ML with MAGNESIUM SULFATE 50% INJ VIAL 1 G, MVI INJ (ADULT) 10 ML IV SCH ×6 (01:21→02:42)
[2021-04-05] MEDS: D5 1/2 NS 1000 ML 1,000 ML IV SCH ×4 (04:34→22:27)
[2021-04-05] MEDS: NICOTINE PATCH TD SCH (09:15)
[2021-04-05] MEDS: PROTONIX INJ 40 MG VIAL IVP SCH (09:16)
[2021-04-05] MEDS: LOVENOX INJ 40 MG SYR SC SCH (09:16)
[2021-04-05] MEDS: LEVAQUIN PREMIX IV 500 MG 500 MG/100 ML BAG IV SCH (09:16)
--- NOTE | 2021-04-05 18:28 | DR.PROGNOT ---
Hospital Progress Notes - Progress Note for Day of: Progress Note Date: 04/05/21 - Chief Complaint Chief Complaint: post op laparotomy , partial colectomy , partial gastrectomy day 3 . no nausea or vomiting . . fair urine out put . WBC 16.8 .. Hgb 10.6. Creat 1.08.. CEA 11.4. afebrile . - Past Medical Family Social History Past Med/Fam/Surg Hx: No changes since H&P Allergies: Allergies acetaminophen [From [place]] Allergy (Verified 06/11/20 17:31) hydrocodone [From [place]] Allergy (Verified 06/11/20 17:31) penicillin G Allergy (Verified 06/11/20 17:31) - Review Of Systems ROS: No change since H&P - Vital Signs Vital Signs: Temperature 98.2 F Pulse Rate [Right Brachial] 90 Pulse Rate 89 Respiratory Rate 20 Blood Pressure [Left Arm] 138/79 Blood Pressure [Right Arm] 138/78 Blood Pressure 107/68 O2 Sat by Pulse Oximetry 93 - Physical Exam Oriented: Normal, Time, Person, Place Eyes: Normal, Other (no scleral icterus) Ear: Normal Nose: Normal Throat: Normal Respiratory: Normal Cardiovascular: Normal : Normal GI:Auscultation: Decreased GI:Palpation: Other (mild tenderness to LUQ) GI: Tenderness: Diffuse (soft abdomen withmoderate incisional tenderness ) Skin: Normal Musculoskeletal: Normal Psychiatric: Normal Mood Description: Calm, Appropriate Speech Pattern: Clear, Appropriate - Laboratory and Diagnostics Result Diagrams: 04/03/21 05:37 04/03/21 05:37 Labs: 03/29/21 19:28 Stool Stool Culture - Final 03/29/21 19:28 Stool - Final Laboratory WBC 16.8 X10^3/uL (3.6-10.0) H 04/03/21 05:37 RBC 3.42 X10^6/uL (3.5-5.4) L 04/03/21 05:37 Hgb 10.6 g/dL (12.0-16.0) L 04/03/21 05:37 Hct 31.8 % (36.0-47.0) L 04/03/21 05:37 MCV 93.0 fL (80.0-100.0) 04/03/21 05:37 MCH 31.0 pg (27.0-34.0) 04/03/21 05:37 MCHC 33.4 g/dL (33.0-35.0) 04/03/21 05:37 RDW 14.0 % (11.6-16.5) 04/03/21 05:37 Plt Count 372 X10^3/uL (150.0-450.0) 04/03/21 05:37 MPV 7.0 fL (7.4-11.0) L 04/03/21 05:37 Neut % (Auto) 84.0 % (42.0-75.0) H 04/03/21 05:37 Lymph % (Auto) 5.7 % (21.0-51.0) L 04/03/21 05:37 [place] % (Auto) 10.2 % (0.0-13.0) 04/03/21 05:37 Eos % (Auto) 0.0 % (0.9-2.9) L 04/03/21 05:37 Baso % (Auto) 0.1 % (0.2-1.0) L 04/03/21 05:37 Neut # (Auto) 14.1 x10^3/uL (2.2-4.8) H 04/03/21 05:37 Lymph # (Auto) 1.0 X10^3/uL (1.3-2.9) L 04/03/21 05:37 [place] # (Auto) 1.7 x10^3/uL (0.3-0.8) H 04/03/21 05:37 Eos # (Auto) 0.0 x10^3/uL (0.0-0.2) 04/03/21 05:37 Baso # (Auto) 0.0 X10^3/uL (0.0-0.1) 04/03/21 05:37 Absolute Nucleated RBC 0.0 /100WBC 04/03/21 05:37 PT 12.6 SECONDS (11.8-14.3) 03/30/21 04:18 INR Target Range - 03/30/21 04:18 INR 0.99 (0.8-1.3) 03/30/21 04:18 APTT 34.0 SECONDS (22.9-36.5) 03/30/21 04:18 PTT Comment - 03/30/21 04:18 Sodium 148 mmol/L (136-145) H 04/03/21 05:37 Corrected Sodium 148 mmol/L (136-145) H 04/03/21 05:37 Potassium 3.1 mmol/L (3.5-5.1) L 04/03/21 05:37 Chloride 114 mmol/L (98-107) H 04/03/21 05:37 Carbon Dioxide 18.9 mmol/L (21-32) L 04/03/21 05:37 BUN 9 mg/dL (7-18) 04/03/21 05:37 Creatinine 1.08 mg/dL (0.55-1.02) H 04/03/21 05:37 Est GFR (MDRD) Af Amer > 60 (>60) 04/03/21 05:37 Est GFR (MDRD) Non-Af 57 (>60) L 04/03/21 05:37 Glucose 111 mg/dL (65-99) H 04/03/21 05:37 Calcium 7.5 mg/dL (8.5-10.1) L 04/03/21 05:37 Corrected Calcium 9.3 mg/dL (8.5-10.1) 04/03/21 05:37 Magnesium 2.6 mg/dL (1.7-2.9) 04/04/21 17:03 Total Bilirubin 0.30 mg/dL (0.2-1.0) 04/03/21 05:37 AST 19 Units/L (15-37) 04/03/21 05:37 ALT 14 Units/L (12-78) 04/03/21 05:37 Alkaline Phosphatase 72 Units/L (46-116) 04/03/21 05:37 Total Protein 5.5 g/dL (6.4-8.2) L 04/03/21 05:37 Albumin 1.8 g/dL (3.4-5.0) L 04/03/21 05:37 Globulin 3.7 g/dL (2.5-4.5) 04/03/21 05:37 Albumin/Globulin Ratio 0.5 Ratio (1.1-2.1) L 04/03/21 05:37 Amylase 26 Units/L (25-115) 03/29/21 16:00 Lipase 100 Units/L (73-393) 03/29/21 16:00 Carcinoembryonic Ag 11.4 ng/mL (0.0-3.0) H 03/30/21 01:19 CA 15-3 Antigen 21 U/L (0-31) 03/30/21 01:19 CA 19-9 Antigen 20 U/mL (0-37) 03/30/21 01:19 Specimen Type Clean catch urine 03/29/21 18:15 Urine Color Yellow (YELLOW) 03/29/21 18:15 Urine Appearance Clear (CLEAR) 03/29/21 18:15 Urine pH 6.0 (5.0 - 8.0) 03/29/21 18:15 Ur Specific [place] 1.010 (1.000-1.030) 03/29/21 18:15 Urine Protein Negative (NEGATIVE) 03/29/21 18:15 Urine Glucose (UA) Negative (NEGATIVE) 03/29/21 18:15 Urine Ketones Negative (NEGATIVE) 03/29/21 18:15 Urine Occult Blood Negative (NEGATIVE) 03/29/21 18:15 Urine Nitrite Negative (NEGATIVE) 03/29/21 18:15 Urine Bilirubin Negative (NEGATIVE) 03/29/21 18:15 Urine Urobilinogen 1+ (NORMAL) 03/29/21 18:15 Ur Leukocyte Esterase Negative (NEGATIVE) 03/29/21 18:15 Urine RBC 0-2 /HPF (0-3) 03/29/21 18:15 Urine WBC None seen /HPF (0-5) 03/29/21 18:15 Ur Squamous Epith Cells Few /HPF (NEGATIVE) 03/29/21 18:15 Urine Bacteria 1+ /HPF (NEGATIVE) 03/29/21 18:15 Ur Culture Indicated? No/not indicated 03/29/21 18:15 Stool Description 20g liquid brown 03/29/21 19:28 Stool Description 20g liquid brown 03/29/21 19:28 Stl Occult Blood (IFOB) Positive (NEGATIVE) A 03/29/21 19:28 Stool for White Cells Positive (NEGATIVE) A 03/29/21 19:28 Stl C. diff Tox B Gene Negative (NEGATIVE) 03/29/21 19:28 Stl C. diff [id number] Presumptive negative (NEGATIVE) 03/29/21 19:28 Stool H. pylori Ag Negative (NEGATIVE) 03/29/21 19:28 Random Vancomycin 9.2 ug/mL 03/31/21 18:49 Cryptosporid parvum Ag Negative (NEGATIVE) 03/29/21 19:28 Giardia lamblia Ag Positive (NEGATIVE) A 03/29/21 19:28 SARS CoV-2 RNA Rapid KYLIE Negative (NEGATIVE) 03/29/21 21:40 Tissue Pathology To follow 04/02/21 09:45 Blood Type O NEGATIVE 04/01/21 11:52 Antibody Screen Negative 04/01/21 11:52 - Assessment and Plan 1: s/p laparotomy day 3 . segmental colectomy and partial gastrectomy for colon mass . alcohol and tabaco abuser . to start on liquid diet , ambulate , IVF , IV ATB , DVT prophylaxis , incentive spirometer ,. possible D/C in am
[2021-04-06] MEDS: NS 1000 ML 1,000 ML with MAGNESIUM SULFATE 50% INJ VIAL 1 G, MVI INJ (ADULT) 10 ML IV SCH ×6 (02:30→06:00)
[2021-04-06] MEDS: MORPHINE SULFATE INJ 4 MG IVP PRN (03:00)
[2021-04-06] MEDS: D5 1/2 NS 1000 ML 1,000 ML IV SCH (06:00)
[2021-04-06] MEDS: LOVENOX INJ 40 MG SYR SC SCH (08:55)
[2021-04-06] MEDS: PROTONIX INJ 40 MG VIAL IVP SCH (08:55)
[2021-04-06] MEDS: LEVAQUIN PREMIX IV 500 MG 500 MG/100 ML BAG IV SCH (08:55)
[2021-04-06] MEDS: NICOTINE PATCH TD SCH (08:55)
[2021-04-06] MEDS: ULTRAM PO PRN ×2 (14:34→22:19)
[2021-04-06] MEDS: ATIVAN TAB 1 MG PO PRN (14:34)
--- NOTE | 2021-04-06 23:38 | NOTE.SOAP ---
Soap Note Note for Day of Date of Exam: 04/06/21 Subjective Data Subjective Data: Postoperative day number 4 after resection of mass of the transverse colon invading the posterior wall of the distal antrum of the stomach also requiring resection of the antrum and gastro-jejunostomy. Doing well. Passing flatus. Tolerating a clear liquid diet. Receiving PO potassium replacement with some nausea. NG tube and Lopez catheter have been removed. Epidural catheter has been removed. Pain control with IV morphine. Objective Data Temperature: 97.4 F Pulse Rate: 94 Respiratory Rate: 18 Blood Pressure: 153/82 O2 Sat by Pulse Oximetry: 99 Objective Data: Incision covered with Aqua cell Ag. Only small amount of drainage from the wound in the last 4 days. Have you and Sally distended and not tender. 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 Doing well. Plan Plan: Advanced a regular diet. Change to PO pain medication. Encourage ambulation. Check a.m. labs. Hope we can discharged tomorrow.
[2021-04-07] MEDS: ATIVAN TAB 1 MG PO PRN (03:00)
[2021-04-07 06:39] LABS: BASOPHILS % (AUTO) 0.3 % (0.2-1.0); EOSINOPHILS # (AUTO) 0.3 x10^3/uL (0.0-0.2); EOSINOPHILS % (AUTO) 2.6 % (0.9-2.9); HEMATOCRIT 28.4 % (36.0-47.0); HEMOGLOBIN 9.8 g/dL (12.0-16.0); LYMPHOCYTES # (AUTO) 0.6 X10^3/uL (1.3-2.9); LYMPHOCYTES % (AUTO) 5.2 % (21.0-51.0); MEAN CORPUSCULAR HGB CONC 34.3 g/dL (33.0-35.0); MEAN CORPUSCULAR VOLUME 90.4 fL (80.0-100.0); MONOCYTES # (AUTO) 1.2 x10^3/uL (0.3-0.8); MONOCYTES % (AUTO) 9.9 % (0.0-13.0); NEUTROPHILS # (AUTO) 10.2 x10^3/uL (2.2-4.8); PLATELET COUNT 411 X10^3/uL (150.0-450.0); RED BLOOD COUNT 3.15 X10^6/uL (3.5-5.4); RED CELL DISTRIBUTION WIDTH 13.8 % (11.6-16.5); WHITE BLOOD COUNT 12.4 X10^3/uL (3.6-10.0)
[2021-04-07 06:45] LABS: BLOOD UREA NITROGEN 5 mg/dL (7-18); CALCIUM 7.8 mg/dL (8.5-10.1); CARBON DIOXIDE 18.4 mmol/L (21-32); CHLORIDE 108 mmol/L (98-107); CREATININE 0.64 mg/dL (0.55-1.02); SODIUM 139 mmol/L (136-145); eGFR NON BLACK RACES > 60 (>60)
[2021-04-07] MEDS: NS 1000 ML 1,000 ML with MAGNESIUM SULFATE 50% INJ VIAL 1 G, MVI INJ (ADULT) 10 ML IV SCH ×6 (06:48→07:16)
[2021-04-07] MEDS ORDERED: NS 1000 ML 1,000 ML ONE (07:09)
[2021-04-07] MEDS ORDERED: MAGNESIUM SULFATE 50% INJ VIAL ONE (07:09)
[2021-04-07] MEDS: PROTONIX INJ 40 MG VIAL IVP SCH (10:06)
[2021-04-07] MEDS: NICOTINE PATCH TD SCH (10:06)
[2021-04-07] MEDS: LOVENOX INJ 40 MG SYR SC SCH (10:06)
[2021-04-07] MEDS ORDERED: DULCOLAX SUPPOSITORY 10 MG RECTAL ONE (10:50)
--- NOTE | 2021-04-07 22:41 | NOTE.SOAP ---
Soap Note Note for Day of Date of Exam: 04/07/21 Subjective Data Subjective Data: Postoperative day 5 after composite resection of transverse colon and distal antrum with reconstruction. NG tube and Lopez out. Pain controlled with PO pain medication. Patient has been started on a regular diet had one episode of bilious vomiting this morning. Had continued her diet although she is taking very little of solid food but has been tolerating liquids. She had to liquid bowel movements. No further vomiting. Objective Data Temperature: 98.1 F Pulse Rate: 99 Respiratory Rate: 18 Blood Pressure: 140/81 O2 Sat by Pulse Oximetry: 98 Objective Data: Abdomen is mildly distended. Dressing intact abdominal incision abdomen is not tender. Casting 3.2 this a.m. repeat 3.7. Creatinine normal. Assessment Assessment: Postoperative day 5 after resection of transverse colon mass proven to be adenocarcinoma pathology did they the closure of all the stomach. Patient improving. Tolerating liquids. Having liquid bowel movements. Mild ileus clinically. Patient has been ambulating. Plan Plan: Repeat metabolic profile in the morning. Hopefully can be discharged.
[2021-04-07] MEDS: ULTRAM PO PRN (22:55)
[2021-04-08 06:45] LABS: BLOOD UREA NITROGEN 4 mg/dL (7-18); CARBON DIOXIDE 18.9 mmol/L (21-32); CHLORIDE 108 mmol/L (98-107); CREATININE 0.68 mg/dL (0.55-1.02); SODIUM 140 mmol/L (136-145); eGFR NON BLACK RACES > 60 (>60)
[2021-04-08] MEDS: PROTONIX INJ 40 MG VIAL IVP SCH (08:42)
[2021-04-08] MEDS: NICOTINE PATCH TD SCH ×2 (08:46→08:48)
[2021-04-08] MEDS: K-DUR TAB 20 MEQ PO PRN (08:47)
[2021-04-08] MEDS: LOVENOX INJ 40 MG SYR SC SCH (09:49)
--- NOTE | 2021-04-08 11:53 | PCM.DCPLAN ---
DISCHARGE SUMMARY Admission Date Date of Admission: 03/29/21 Discharge Date Discharge Date: 04/08/21 Admission Diagnoses (1) Mass of colon: Status: Acute Discharge Diagnoses Discharge Diagnosis: colon cancer with invasion of [id number]- -[id number]-a-l-l- -o-f- -[id number]-l-y-m-a-c-[id number]-,- - - -[id number]-.-4- Discharge Medications Discharge Medications: Home Medication List NK 03/30/21 [History] Prescriptions: Percocet 5 mg , 1 po 6 hr PRN pain, #30 KCL 40 mEQ 1 po q day, # 30 Hospital Course Vital Signs: Temperature 98.6 F Pulse Rate [Right Brachial] 104 Pulse Rate 104 Respiratory Rate 18 Blood Pressure [Left Arm] 155/81 Blood Pressure [Right Arm] 168/84 Blood Pressure 140/81 O2 Sat by Pulse Oximetry 99 Latest Lab Results: This 50-year-old female with history of greater than 3 packs of cigarettes per day and 16 beers per day intake presented with abdominal pain and CT scan was consistent with a mass either of the transverse colon or the stomach with possible fistula between the two. She was admitted and underwent bowel prep.On 03/31/2021 EGD was carried out showing no obvious fistula and biopsies were consistent with chronic inflammation. Colonoscopy carried out identifying a mass in the transverse colon which I could not get beyond. Pathology of this was consistent with adenocarcinoma. On 2020 she underwent laparotomy with findings of a large mass of the left side of the transverse colon invading the posterior wall of the antrum of the stomach. She underwent composite resection of all this with re-anastomosis of the colon and gastro-jejunostomy reconstruction of the stomach and small bowel. She has done well. Final pathology is still pending. CEA level was elevated at 11.4. CAD 19 9 in CA 15 3 were normal. Postoperatively she was treated with nasogastric tube , Lopez catheter and epidural catheter. All of been removed. He has been having diarrhea and passing flatus. She did have one episode of vomiting bilious material. Potassium has been low and has been replaced both intravenously and by PO methods. At this time incision is clean and dry. She is passing bowel movements. She will be discharged home on her usual medications. I have advised her to avoid tobacco and alcohol. She has been given prescriptions for Percocet 5 mg tablets, one every 6 hours prn pain,# 30 and potassium chloride 40 mEq, one PO Q day. Again the final pathology is still pending. She will follow up with me in one week and at that time will be referred for oncology evaluation. I hope to present her at our local tumor board in the near future.Laboratory Last Values WBC 12.4 X10^3/uL (3.6-10.0) H 04/07/21 05:46 RBC 3.15 X10^6/uL (3.5-5.4) L 04/07/21 05:46 Hgb 9.8 g/dL (12.0-16.0) L 04/07/21 05:46 Hct 28.4 % (36.0-47.0) L 04/07/21 05:46 MCV 90.4 fL (80.0-100.0) 04/07/21 05:46 MCH 31.0 pg (27.0-34.0) 04/07/21 05:46 MCHC 34.3 g/dL (33.0-35.0) 04/07/21 05:46 RDW 13.8 % (11.6-16.5) 04/07/21 05:46 Plt Count 411 X10^3/uL (150.0-450.0) 04/07/21 05:46 MPV 7.0 fL (7.4-11.0) L 04/07/21 05:46 Neut % (Auto) 82.0 % (42.0-75.0) H 04/07/21 05:46 Lymph % (Auto) 5.2 % (21.0-51.0) L 04/07/21 05:46 [place] % (Auto) 9.9 % (0.0-13.0) 04/07/21 05:46 Eos % (Auto) 2.6 % (0.9-2.9) 04/07/21 05:46 Baso % (Auto) 0.3 % (0.2-1.0) 04/07/21 05:46 Neut # (Auto) 10.2 x10^3/uL (2.2-4.8) H 04/07/21 05:46 Lymph # (Auto) 0.6 X10^3/uL (1.3-2.9) L 04/07/21 05:46 [place] # (Auto) 1.2 x10^3/uL (0.3-0.8) H 04/07/21 05:46 Eos # (Auto) 0.3 x10^3/uL (0.0-0.2) H 04/07/21 05:46 Baso # (Auto) 0.0 X10^3/uL (0.0-0.1) 04/07/21 05:46 Absolute Nucleated RBC 0.0 /100WBC 04/07/21 05:46 PT 12.6 SECONDS (11.8-14.3) 03/30/21 04:18 INR Target Range - 03/30/21 04:18 INR 0.99 (0.8-1.3) 03/30/21 04:18 APTT 34.0 SECONDS (22.9-36.5) 03/30/21 04:18 PTT Comment - 03/30/21 04:18 Sodium 140 mmol/L (136-145) 04/08/21 04:10 Corrected Sodium TNP 04/08/21 04:10 Potassium 3.3 mmol/L (3.5-5.1) L 04/08/21 04:10 Chloride 108 mmol/L (98-107) H 04/08/21 04:10 Carbon Dioxide 18.9 mmol/L (21-32) L 04/08/21 04:10 BUN 4 mg/dL (7-18) L 04/08/21 04:10 Creatinine 0.68 mg/dL (0.55-1.02) 04/08/21 04:10 Est GFR (MDRD) Af Amer > 60 (>60) 04/08/21 04:10 Est GFR (MDRD) Non-Af > 60 (>60) 04/08/21 04:10 Glucose 73 mg/dL (65-99) 04/08/21 04:10 Calcium 8.0 mg/dL (8.5-10.1) L 04/08/21 04:10 Corrected Calcium 9.3 mg/dL (8.5-10.1) 04/03/21 05:37 Magnesium 2.6 mg/dL (1.7-2.9) 04/04/21 17:03 Total Bilirubin 0.30 mg/dL (0.2-1.0) 04/03/21 05:37 AST 19 Units/L (15-37) 04/03/21 05:37 ALT 14 Units/L (12-78) 04/03/21 05:37 Alkaline Phosphatase 72 Units/L (46-116) 04/03/21 05:37 Total Protein 5.5 g/dL (6.4-8.2) L 04/03/21 05:37 Albumin 1.8 g/dL (3.4-5.0) L 04/03/21 05:37 Globulin 3.7 g/dL (2.5-4.5) 04/03/21 05:37 Albumin/Globulin Ratio 0.5 Ratio (1.1-2.1) L 04/03/21 05:37 Amylase 26 Units/L (25-115) 03/29/21 16:00 Lipase 100 Units/L (73-393) 03/29/21 16:00 Carcinoembryonic Ag 11.4 ng/mL (0.0-3.0) H 03/30/21 01:19 CA 15-3 Antigen 21 U/L (0-31) 03/30/21 01:19 CA 19-9 Antigen 20 U/mL (0-37) 03/30/21 01:19 Specimen Type Clean catch urine 03/29/21 18:15 Urine Color Yellow (YELLOW) 03/29/21 18:15 Urine Appearance Clear (CLEAR) 03/29/21 18:15 Urine pH 6.0 (5.0 - 8.0) 03/29/21 18:15 Ur Specific [place] 1.010 (1.000-1.030) 03/29/21 18:15 Urine Protein Negative (NEGATIVE) 03/29/21 18:15 Urine Glucose (UA) Negative (NEGATIVE) 03/29/21 18:15 Urine Ketones Negative (NEGATIVE) 03/29/21 18:15 Urine Occult Blood Negative (NEGATIVE) 03/29/21 18:15 Urine Nitrite Negative (NEGATIVE) 03/29/21 18:15 Urine Bilirubin Negative (NEGATIVE) 03/29/21 18:15 Urine Urobilinogen 1+ (NORMAL) 03/29/21 18:15 Ur Leukocyte Esterase Negative (NEGATIVE) 03/29/21 18:15 Urine RBC 0-2 /HPF (0-3) 03/29/21 18:15 Urine WBC None seen /HPF (0-5) 03/29/21 18:15 Ur Squamous Epith Cells Few /HPF (NEGATIVE) 03/29/21 18:15 Urine Bacteria 1+ /HPF (NEGATIVE) 03/29/21 18:15 Ur Culture Indicated? No/not indicated 03/29/21 18:15 Stool Description 20g liquid brown 03/29/21 19:28 Stool Description 20g liquid brown 03/29/21 19:28 Stl Occult Blood (IFOB) Positive (NEGATIVE) A 03/29/21 19:28 Stool for White Cells Positive (NEGATIVE) A 03/29/21 19:28 Stl C. diff Tox B Gene Negative (NEGATIVE) 03/29/21 19:28 Stl C. diff [id number] Presumptive negative (NEGATIVE) 03/29/21 19:28 Stool H. pylori Ag Negative (NEGATIVE) 03/29/21 19:28 Random Vancomycin 9.2 ug/mL 03/31/21 18:49 Cryptosporid parvum Ag Negative (NEGATIVE) 03/29/21 19:28 Giardia lamblia Ag Positive (NEGATIVE) A 03/29/21 19:28 SARS CoV-2 RNA Rapid KYLIE Negative (NEGATIVE) 03/29/21 21:40 Tissue Pathology To follow 04/02/21 09:45 Blood Type O NEGATIVE 04/01/21 11:52 Antibody Screen Negative 04/01/21 11:52 Instructions Instructions: Fall Prevention in the Home, Adult, Simf-ze-Ggtm Colonoscopy, Adult, Care After, Obab-il-Yagm Hypokalemia Steps to Quit Smoking, Rvzo-fu-Cxns Partial Gastrectomy, Care After Colon Mass, Adult Open Small Bowel Resection, Care After Pain Medicine Instructions, [id number] Preventing Constipation After Surgery Forms: Precautions for COVID19 Patient Portal Social Distancing
[2021-04-08 13:44] VITALS: BP 156/78
== END 2021-04-08 15:40 | disposition home or self-care (01) | DRG 327 ==
LOC: ER 15:48 → MED/SURG 21:55
PROVIDERS: ADMIT Surgery; ATTEND Surgery
DX: K63.89 Other specified diseases of intestine; Z20.822 Contact with and (suspected) exposure to COVID-19; R11.2 Nausea with vomiting, unspecified; C18.4 Malignant neoplasm of transverse colon; Z72.0 Tobacco use; A07.1 Giardiasis [lambliasis]; R19.7 Diarrhea, unspecified; F10.10 Alcohol abuse, uncomplicated

== ENCOUNTER 2021-04-15 20:56 | Inpatient (IN) ==
[2021-04-15 21:53] LABS: BILIRUBIN,URINE NEGATIVE (NEGATIVE); BLOOD/HEMOGLOBIN,URINE NEGATIVE (NEGATIVE); GLUCOSE, URINE NEGATIVE (NEGATIVE); KETONES,URINE 2+ (NEGATIVE); LEUKOCYTE ESTERASE ,URINE NEGATIVE (NEGATIVE); NITRITES,URINE NEGATIVE (NEGATIVE); PROTEIN,URINE 1+ (NEGATIVE); UROBILINOGEN,URINE NORMAL (NORMAL)
[2021-04-15 21:59] LABS: APPEARANCE,URINE CLEAR (CLEAR); COLOR,URINE DARK YELLOW (YELLOW)
[2021-04-15 22:00] LABS: BACTERIA,URINE TRACE /HPF (NEGATIVE); RBC,URINE NONE SEEN /HPF (0-3); SQUAMOUS EPITHELIAL CELL,UR RARE /HPF (NEGATIVE)
[2021-04-15 22:01] LABS: BASOPHILS # (AUTO) 0.1 X10^3/uL (0.0-0.1); BASOPHILS % (AUTO) 0.1 % (0.2-1.0); EOSINOPHILS % (AUTO) 0.1 % (0.9-2.9); HEMATOCRIT 31.4 % (36.0-47.0); HEMOGLOBIN 10.4 g/dL (12.0-16.0); LYMPHOCYTES # (AUTO) 0.6 X10^3/uL (1.3-2.9); LYMPHOCYTES % (AUTO) 1.6 % (21.0-51.0); MEAN CORPUSCULAR HEMOGLOBIN 29.8 pg (27.0-34.0); MEAN CORPUSCULAR VOLUME 90.3 fL (80.0-100.0); MEAN PLATELET VOLUME 6.5 fL (7.4-11.0); MONOCYTES # (AUTO) 2.9 x10^3/uL (0.3-0.8); MONOCYTES % (AUTO) 7.5 % (0.0-13.0); NEUTROPHILS # (AUTO) 35.3 x10^3/uL (2.2-4.8); NEUTROPHILS % (AUTO) 90.7 % (42.0-75.0); PLATELET COUNT 652 X10^3/uL (150.0-450.0); RED BLOOD COUNT 3.47 X10^6/uL (3.5-5.4); RED CELL DISTRIBUTION WIDTH 14.3 % (11.6-16.5)
[2021-04-15 22:06] LABS: ALANINE AMINOTRANSFERASE 10 Units/L (12-78); ALBUMIN 1.7 g/dL (3.4-5.0); ALKALINE PHOSPHATASE 147 Units/L (46-116); ASPARTATE AMINO TRANSFERASE 15 Units/L (15-37); BLOOD UREA NITROGEN 10 mg/dL (7-18); CALCIUM 8.4 mg/dL (8.5-10.1); CARBON DIOXIDE 22.2 mmol/L (21-32); CHLORIDE 96 mmol/L (98-107); COR CA(FOR HYPOALB) 10.2 mg/dL (8.5-10.1); COR NA(FOR HYPERGLY) 130 mmol/L (136-145); CREATININE 1.15 mg/dL (0.55-1.02); SODIUM 129 mmol/L (136-145); eGFR NON BLACK RACES 53 (>60)
[2021-04-15 22:22] LABS: WHITE BLOOD COUNT 38.9 X10^3/uL (3.6-10.0)
--- NOTE | 2021-04-15 22:22 | DR.URINEF ---
HPI Time Seen Time Seen by Provider: 04/15/21 22:12 PCP Primary Care Physician: EDITH HPI Comment HPI Comment: A 50 y/o female presenting with c/o having no urinary output since yesterday morning and also increase in feet swelling. She has no SOB. She has been drinking some liquid as her appetite is not so good. She has a hx. of liver cancer and had some portion of intestines removed above 2 weeks ago. She a post- op f/u yesterday with her operating surgeon. Complaint Chief Complaint:: PT STATES THAT SHE SAW DR. TINOCO FOR A POST OP VISIT YESTERDAY FOR HAVING PART OF HER STOMACH AND INTESTINES REMOVED AND SHE HASNT URINATED SINCE PRIOR TO SEEING HIM AROUND 1000 YESTERDAY. PT STATES THAT ALSO HER ANKLES HAVE BEEN SWELLING SINCE BEFORE YESTERDAY BUT NOW THEY ARE BIGGER AND SHE IS HAVING LOWER ABDOMINAL TENDERNESS. PT HAS NOTED +3 EDEMA NOTED TO BILATERAL LOWER EXTREMITIES. Self Treatment fo Chief Complaint: NONE COVID-19 Coronavirus risk:travel/contact w/high risk person: No Has patient experienced Coronavirus symptoms: No Reviewed Nurses Notes Reviewed: Yes Source History Provided: Patient Mode of Arrival Mode of Arrival: Ambulatory Timing Onset of Chief Complaint: 04/14/21 Duration Has not urinated for: 23 Min/Hrs: Hours Context Onset: Spontaneous Symptoms: Cough History of: None Associated Signs and Symptoms Associated signs and symptoms: None PMH PMH Past Medical History: Yes Past Medical History: Liver Disease Past Surgical History: Yes Surgical History: Other Past Surgical History Comment: "PART OF STOMACH AND INTESTINES REMOVED Family History History of Family Medical Conditions: Yes Family Medical History: Cancer and Hypertension Social History Does patient currently use any type of tobacco product: Yes Have you used tobacco products in the last 12 months: Yes Alcohol Use: None Do you use any recreational Drugs:: No Lives With: Family Lives Where: Home Travel Risk Coronavirus risk:travel/contact w/high risk person: No Has patient experienced Coronavirus symptoms: No Infectious screening In the last 2 months have you had wt loss of >10#?: NO Have you had fever, night sweats or hemotysis?: No Have you traveled outside the country in the last 6 months?: No Isolation: Standard ROS Review of Systems Constitutional: No Symptoms Reported Eyes: No Symptoms Reported ENTM: No Symptoms Reported Respiratoy: No Symptoms Reported Cardiovascular: No Symptoms Reported Gastrointestinal/Abdominal: No Symptoms Reported Genitourinary: Other (not urinating for close to a day.) Neurological: No Symptoms Reported Musculoskeletal: No Symptoms Reported Integumentary: No Symptoms Reported Hematologic/Lymphatic: No Symptoms Reported Endocrine: No Symptoms Reported Psychiatric: No Symptoms Reported PE Vital Signs Vitals: Temperature 97.8 F Pulse Rate 126 Respiratory Rate 21 Blood Pressure [Left Arm] 156/78 Blood Pressure 141/91 O2 Sat by Pulse Oximetry 95 General Limitations: No Limitations General Appearance: Alert, In No Apparent Distress and Other (chronic ill looking) Head Head Exam: Normal Inspection, Atraumatic and Normocephalic Eyes Eye exam: Normal Appearance and EOMI ENT ENT Exam: Normal Exam, Normal Oropharynx, Normal External Ear Exam and Mucous Membranes Moist Neck Neck Exam: Normal Inspection, Full ROM and Trachea Midline Chest Chest Inspection: Normal Inspection and Symmetric Chest Wall Rise Respiratory Respiratory Exam: Normal Lung Sounds Bilat Cardiovascular Cardiovascular Exam: Regular Rate, Normal Rhythm, Normal Heart Sounds, +S1 and +S2 Abdominal Exam Abdominal Exam: Normal Bowel Sounds, Soft, Distention and Other (Recent vertical incision with overlaying steri-strips, no dehiscense noted. There is no abdoominal tenderness. ) Rectal Rectal Exam: Deferred Genitourinary External Exam: Female: Deferred Extremities Extremities Exam: Full ROM and Edema (1-2+ in legs, 3+ in feet.) Back Back Exam: Normal Inspection and Full ROM Neurologic Neurological Exam: Alert and Oriented X3 Psychiatric Psychiatric Exam: Normal Affect and Normal Mood Skin Skin Exam: Dry, Intact and Normal Color COURSE Treatment Treatment: ED staff were unable to reach Dr. Tinoco, so case presentation and findings were discussed with Dr. Francois. He agreed to admit the pt. I had earlier discussed the test results with the pt. and her significant other with plans for admission. Reevaluation 1st: Improved (There's 600 m of U/O with insertion of moura catheter. ) 2nd: Unchanged Education/Counseling Education/Counseling: Patient, Family, Education and Counseling Educated On: Treatment, Diagnosis, Prognosis and Needs for Follow Up ROR Labs Reviewed Result Diagrams: 04/15/21 21:43 04/15/21 21:43 Laboratory: WBC 38.9 X10^3/uL (3.6-10.0) H* 04/15/21 21:43 RBC 3.47 X10^6/uL (3.5-5.4) L 04/15/21 21:43 Hgb 10.4 g/dL (12.0-16.0) L 04/15/21 21:43 Hct 31.4 % (36.0-47.0) L 04/15/21 21:43 MCV 90.3 fL (80.0-100.0) 04/15/21 21:43 MCH 29.8 pg (27.0-34.0) 04/15/21 21:43 MCHC 33.0 g/dL (33.0-35.0) 04/15/21 21:43 RDW 14.3 % (11.6-16.5) 04/15/21 21:43 Plt Count 652 X10^3/uL (150.0-450.0) H 04/15/21 21:43 Plt Count Comment Increased (ADEQUATE) A 04/15/21 21:43 MPV 6.5 fL (7.4-11.0) L 04/15/21 21:43 Neut % (Auto) 90.7 % (42.0-75.0) H 04/15/21 21:43 Lymph % (Auto) 1.6 % (21.0-51.0) L 04/15/21 21:43 [place] % (Auto) 7.5 % (0.0-13.0) 04/15/21 21:43 Eos % (Auto) 0.1 % (0.9-2.9) L 04/15/21 21:43 Baso % (Auto) 0.1 % (0.2-1.0) L 04/15/21 21:43 Neut # (Auto) 35.3 x10^3/uL (2.2-4.8) H 04/15/21 21:43 Lymph # (Auto) 0.6 X10^3/uL (1.3-2.9) L 04/15/21 21:43 [place] # (Auto) 2.9 x10^3/uL (0.3-0.8) H 04/15/21 21:43 Eos # (Auto) 0.0 x10^3/uL (0.0-0.2) 04/15/21 21:43 Baso # (Auto) 0.1 X10^3/uL (0.0-0.1) 04/15/21 21:43 Absolute Nucleated RBC 0.0 /100WBC 04/15/21 21:43 Total Counted 100 04/15/21 21:43 Neutrophils % (Manual) 87 % (39-76) H 04/15/21 21:43 Band Neutrophils % 5 % (0-10) 04/15/21 21:43 Lymphocytes % (Manual) 3 % (13-43) L 04/15/21 21:43 Monocytes % (Manual) 5 % (4-9) 04/15/21 21:43 Plt Morphology Comment Normal (NORMAL) 04/15/21 21:43 RBC Morphology Normal (NORMAL) 04/15/21 21:43 Sodium 129 mmol/L (136-145) L 04/15/21 21:43 Corrected Sodium 130 mmol/L (136-145) L 04/15/21 21:43 Potassium 6.3 mmol/L (3.5-5.1) H* 04/15/21 21:43 Chloride 96 mmol/L (98-107) L 04/15/21 21:43 Carbon Dioxide 22.2 mmol/L (21-32) 04/15/21 21:43 BUN 10 mg/dL (7-18) 04/15/21 21:43 Creatinine 1.15 mg/dL (0.55-1.02) H 04/15/21 21:43 Est GFR (MDRD) Af Amer > 60 (>60) 04/15/21 21:43 Est GFR (MDRD) Non-Af 53 (>60) L 04/15/21 21:43 Glucose 156 mg/dL (65-99) H 04/15/21 21:43 Calcium 8.4 mg/dL (8.5-10.1) L 04/15/21 21:43 Corrected Calcium 10.2 mg/dL (8.5-10.1) H 04/15/21 21:43 Total Bilirubin 0.40 mg/dL (0.2-1.0) 04/15/21 21:43 AST 15 Units/L (15-37) 04/15/21 21:43 ALT 10 Units/L (12-78) L 04/15/21 21:43 Alkaline Phosphatase 147 Units/L (46-116) H 04/15/21 21:43 Total Protein 7.0 g/dL (6.4-8.2) 04/15/21 21:43 Albumin 1.7 g/dL (3.4-5.0) L 04/15/21 21:43 Globulin 5.3 g/dL (2.5-4.5) H 04/15/21 21:43 Albumin/Globulin Ratio 0.3 Ratio (1.1-2.1) L 04/15/21 21:43 Specimen Type Clean catch urine 04/15/21 21:39 Urine Color Dark yellow (YELLOW) 04/15/21 21:39 Urine Appearance Clear (CLEAR) 04/15/21 21:39 Urine pH 6.0 (5.0 - 8.0) 04/15/21 21:39 Ur Specific [place] 1.020 (1.000-1.030) 04/15/21 21:39 Urine Protein 1+ (NEGATIVE) 04/15/21 21:39 Urine Glucose (UA) Negative (NEGATIVE) 04/15/21 21:39 Urine Ketones 2+ (NEGATIVE) 04/15/21 21:39 Urine Occult Blood Negative (NEGATIVE) 04/15/21 21:39 Urine Nitrite Negative (NEGATIVE) 04/15/21 21:39 Urine Bilirubin Negative (NEGATIVE) 04/15/21 21:39 Urine Urobilinogen Normal (NORMAL) 04/15/21 21:39 Ur Leukocyte Esterase Negative (NEGATIVE) 04/15/21 21:39 Urine RBC None seen /HPF (0-3) 04/15/21 21:39 Urine WBC 0-2 /HPF (0-5) 04/15/21 21:39 Ur Squamous Epith Cells Rare /HPF (NEGATIVE) 04/15/21 21:39 Urine Bacteria Trace /HPF (NEGATIVE) 04/15/21 21:39 Ur Culture Indicated? No/not indicated 04/15/21 21:39 Opioid Opioid Risk Tool Age (Arie box if 16-45): No History of Preadolescent Sexual Abuse: No Total: 0 Total Score Risk Category: Low Risk Copyright: Migue SANCHEZ predicting aberrant behaviors Diagnosis Discharge Problem: Gastrointestinal anastomotic leak, Anuria, Jejunitis, Acute hyperkalemia, Acute hyponatremia
[2021-04-15 22:23] LABS: BAND NEUTROPHILS % 5 % (0-10); PLATELET MORPHOLOGY COMMENT NORMAL (NORMAL)
[2021-04-15] MEDS ORDERED: D50W ABBOJECT SYR IV ONE (22:53)
[2021-04-15] MEDS ORDERED: HumuLIN R SUBCUT ONE (22:54)
[2021-04-15] MEDS ORDERED: LASIX IVP ONE ×2 (22:55→23:10)
[2021-04-15] MEDS ORDERED: D50W ABBOJECT SYR ONE (23:10)
[2021-04-15] MEDS ORDERED: HumuLIN R ONE (23:11)
[2021-04-15] MEDS ORDERED: NS 100 ML IV 100 ML ONE (23:15)
--- NOTE | 2021-04-16 00:28 | CT ---
PROCEDURE: CT Abdomen and Pelvis with Contrast .HISTORY: Leukocytosis and anuria since 10 a.m.. Recent abdominal surgery 2 weeks ago.TECHNIQUE: Axial images were performed through the abdomen and pelvis with the administration of IV contrast with multiplanar reformations . Oral contrast was not administered. Dose reduction techniques including Automated Exposure Control (AEC) and adjustment of mA and kV were utilized .COMPARISON: 03/29/2021.TECHNICAL QUALITY: Satisfactory .FINDINGS:Moderate atelectasis lung bases.Liver, spleen, adrenals, pancreas show no significant abnormality.Kidneys show normal enhancement with no mass or obstruction.Normal biliary tract.Large amount of ascites and free air in the abdomen atypical 2 weeks postop and may represent anastomotic leak.Mild atherosclerosis aorta.No lymphadenopathy.Previous partial gastric resection with gastrojejunostomy. Right hemicolectomy with ileocolic anastomosis mid abdomen region. Some prominent mucosa involving jejunal bowel loops near the patient's gastrojejunostomy. Some dilated small bowel loops may represent mild ileus. No obstruction.Pelvis shows moderate fluid and no masses. Unremarkable reproductive organs. Lopez catheter and air in the urinary bladder.No acute bony abnormality.IMPRESSION:1. Large amount of free air in fluid in the abdomen and pelvis suspicious for anastomotic leak postop. Repeat study with oral contrast may be helpful to evaluate possible site of the leak.2. Interval partial gastrectomy with gastrojejunostomy and right hemicolectomy with ileocolic anastomosis.3. Jejunitis left abdomen may be infectious.4. No other acute change identified.Electronically signed by: Ti Boss (Apr 16, 2021 00:26:24)
--- NOTE | 2021-04-16 01:11 | RAD ---
PROCEDURE: Chest X-ray 1 View .HISTORY: Leukocytosis.TECHNIQUE: AP view .COMPARISON: 04/01/2021.TECHNICAL QUALITY: Satisfactory .FINDINGS:Unremarkable cardio mediastinal silhouette.Normal central vascularity.Atelectasis right lung base. No pulmonary consolidation, masses, pleural fluid, or pneumothorax.Large amount of free air under both hemidiaphragms.No acute bony abnormality.IMPRESSION:1. Compressive atelectasis right base.2. Large amount of free air under both hemidiaphragms.Free air was not called due to having been called under previously performed CT abdomen pelvis done this eveningElectronically signed by: Ti Boss (Apr 16, 2021 01:09:06)
[2021-04-16] MEDS ORDERED: HumuLIN R ONE (01:14)
[2021-04-16] MEDS ORDERED: LEVAQUIN PREMIX IV 250 MG 250 MG/50 ML BAG IV ONE ×2 (01:26→01:36)
--- NOTE | 2021-04-16 01:30 | DR.URINEF ---
HPI Time Seen Time Seen by Provider: 04/15/21 22:12 PCP Primary Care Physician: PATOD Complaint Chief Complaint:: PT STATES THAT SHE SAW DR. MARIE FOR A POST OP VISIT YESTERDAY FOR HAVING PART OF HER STOMACH AND INTESTINES REMOVED AND SHE HASNT URINATED SINCE PRIOR TO SEEING HIM AROUND 1000 YESTERDAY. PT STATES THAT ALSO HER ANKLES HAVE BEEN SWELLING SINCE BEFORE YESTERDAY BUT NOW THEY ARE BIGGER AND SHE IS HAVING LOWER ABDOMINAL TENDERNESS. PT HAS NOTED +3 EDEMA NOTED TO BILATERAL LOWER EXTREMITIES. Self Treatment fo Chief Complaint: NONE COVID-19 Coronavirus risk:travel/contact w/high risk person: No Has patient experienced Coronavirus symptoms: No Source History Provided: Patient Mode of Arrival Mode of Arrival: Ambulatory Timing Onset of Chief Complaint: 04/14/21 PMH PMH Past Medical History: Yes Past Medical History: Liver Disease Past Surgical History: Yes Surgical History: Other Past Surgical History Comment: "PART OF STOMACH AND INTESTINES REMOVED Family History History of Family Medical Conditions: Yes Family Medical History: Cancer and Hypertension Social History Does patient currently use any type of tobacco product: Yes Have you used tobacco products in the last 12 months: Yes Alcohol Use: None Do you use any recreational Drugs:: No Lives With: Family Lives Where: Home Travel Risk Coronavirus risk:travel/contact w/high risk person: No Has patient experienced Coronavirus symptoms: No Infectious screening In the last 2 months have you had wt loss of >10#?: NO Have you had fever, night sweats or hemotysis?: No Have you traveled outside the country in the last 6 months?: No Isolation: Standard PE Vital Signs Vitals: Temperature 97.8 F Pulse Rate 126 Respiratory Rate 21 Blood Pressure [Left Arm] 156/78 Blood Pressure 141/91 O2 Sat by Pulse Oximetry 95 ROR Labs Reviewed Result Diagrams: 04/15/21 21:43 04/15/21 21:43 Laboratory: WBC 38.9 X10^3/uL (3.6-10.0) H* 04/15/21 21:43 RBC 3.47 X10^6/uL (3.5-5.4) L 04/15/21 21:43 Hgb 10.4 g/dL (12.0-16.0) L 04/15/21 21:43 Hct 31.4 % (36.0-47.0) L 04/15/21 21:43 MCV 90.3 fL (80.0-100.0) 04/15/21 21:43 MCH 29.8 pg (27.0-34.0) 04/15/21 21:43 MCHC 33.0 g/dL (33.0-35.0) 04/15/21 21:43 RDW 14.3 % (11.6-16.5) 04/15/21 21:43 Plt Count 652 X10^3/uL (150.0-450.0) H 04/15/21 21:43 Plt Count Comment Increased (ADEQUATE) A 04/15/21 21:43 MPV 6.5 fL (7.4-11.0) L 04/15/21 21:43 Neut % (Auto) 90.7 % (42.0-75.0) H 04/15/21 21:43 Lymph % (Auto) 1.6 % (21.0-51.0) L 04/15/21 21:43 [place] % (Auto) 7.5 % (0.0-13.0) 04/15/21 21:43 Eos % (Auto) 0.1 % (0.9-2.9) L 04/15/21 21:43 Baso % (Auto) 0.1 % (0.2-1.0) L 04/15/21 21:43 Neut # (Auto) 35.3 x10^3/uL (2.2-4.8) H 04/15/21 21:43 Lymph # (Auto) 0.6 X10^3/uL (1.3-2.9) L 04/15/21 21:43 [place] # (Auto) 2.9 x10^3/uL (0.3-0.8) H 04/15/21 21:43 Eos # (Auto) 0.0 x10^3/uL (0.0-0.2) 04/15/21 21:43 Baso # (Auto) 0.1 X10^3/uL (0.0-0.1) 04/15/21 21:43 Absolute Nucleated RBC 0.0 /100WBC 04/15/21 21:43 Total Counted 100 04/15/21 21:43 Neutrophils % (Manual) 87 % (39-76) H 04/15/21 21:43 Band Neutrophils % 5 % (0-10) 04/15/21 21:43 Lymphocytes % (Manual) 3 % (13-43) L 04/15/21 21:43 Monocytes % (Manual) 5 % (4-9) 04/15/21 21:43 Plt Morphology Comment Normal (NORMAL) 04/15/21 21:43 RBC Morphology Normal (NORMAL) 04/15/21 21:43 Sodium 129 mmol/L (136-145) L 04/15/21 21:43 Corrected Sodium 130 mmol/L (136-145) L 04/15/21 21:43 Potassium 6.3 mmol/L (3.5-5.1) H* 04/15/21 21:43 Chloride 96 mmol/L (98-107) L 04/15/21 21:43 Carbon Dioxide 22.2 mmol/L (21-32) 04/15/21 21:43 BUN 10 mg/dL (7-18) 04/15/21 21:43 Creatinine 1.15 mg/dL (0.55-1.02) H 04/15/21 21:43 Est GFR (MDRD) Af Amer > 60 (>60) 04/15/21 21:43 Est GFR (MDRD) Non-Af 53 (>60) L 04/15/21 21:43 Glucose 156 mg/dL (65-99) H 04/15/21 21:43 Calcium 8.4 mg/dL (8.5-10.1) L 04/15/21 21:43 Corrected Calcium 10.2 mg/dL (8.5-10.1) H 04/15/21 21:43 Total Bilirubin 0.40 mg/dL (0.2-1.0) 04/15/21 21:43 AST 15 Units/L (15-37) 04/15/21 21:43 ALT 10 Units/L (12-78) L 04/15/21 21:43 Alkaline Phosphatase 147 Units/L (46-116) H 04/15/21 21:43 Total Protein 7.0 g/dL (6.4-8.2) 04/15/21 21:43 Albumin 1.7 g/dL (3.4-5.0) L 04/15/21 21:43 Globulin 5.3 g/dL (2.5-4.5) H 04/15/21 21:43 Albumin/Globulin Ratio 0.3 Ratio (1.1-2.1) L 04/15/21 21:43 Specimen Type Clean catch urine 04/15/21 21:39 Urine Color Dark yellow (YELLOW) 04/15/21 21:39 Urine Appearance Clear (CLEAR) 04/15/21 21:39 Urine pH 6.0 (5.0 - 8.0) 04/15/21 21:39 Ur Specific [place] 1.020 (1.000-1.030) 04/15/21 21:39 Urine Protein 1+ (NEGATIVE) 04/15/21 21:39 Urine Glucose (UA) Negative (NEGATIVE) 04/15/21 21:39 Urine Ketones 2+ (NEGATIVE) 04/15/21 21:39 Urine Occult Blood Negative (NEGATIVE) 04/15/21 21:39 Urine Nitrite Negative (NEGATIVE) 04/15/21 21:39 Urine Bilirubin Negative (NEGATIVE) 04/15/21 21:39 Urine Urobilinogen Normal (NORMAL) 04/15/21 21:39 Ur Leukocyte Esterase Negative (NEGATIVE) 04/15/21 21:39 Urine RBC None seen /HPF (0-3) 04/15/21 21:39 Urine WBC 0-2 /HPF (0-5) 04/15/21 21:39 Ur Squamous Epith Cells Rare /HPF (NEGATIVE) 04/15/21 21:39 Urine Bacteria Trace /HPF (NEGATIVE) 04/15/21 21:39 Ur Culture Indicated? No/not indicated 04/15/21 21:39 Opioid Opioid Risk Tool Age (Arie box if 16-45): No History of Preadolescent Sexual Abuse: No Total: 0 Total Score Risk Category: Low Risk Copyright: Migue SANCHEZ predicting aberrant behaviors Diagnosis Discharge Problem: Gastrointestinal anastomotic leak, Anuria, Jejunitis, Acute hyperkalemia, Acute hyponatremia
[2021-04-16] MEDS ORDERED: NS 1000 ML 1,000 ML ONE ×4 (01:35→16:35)
[2021-04-16] MEDS ORDERED: CONSULT PHARMACY - ANTIBIOTIC XX SCH (02:00)
[2021-04-16] MEDS ORDERED: NS 1000 ML 1,000 ML IV SCH (02:23)
[2021-04-16] MEDS ORDERED: NICOTINE PATCH TD ONE (02:26)
[2021-04-16] MEDS ORDERED: DILAUDID INJ ONE ×2 (03:03→11:36)
[2021-04-16] MEDS: DILAUDID INJ IVP PRN ×3 (03:06→18:16)
[2021-04-16 06:17] LABS: BASOPHILS # (AUTO) 0.2 X10^3/uL (0.0-0.1); BASOPHILS % (AUTO) 0.6 % (0.2-1.0); HEMATOCRIT 31.9 % (36.0-47.0); HEMOGLOBIN 10.8 g/dL (12.0-16.0); LYMPHOCYTES # (AUTO) 0.7 X10^3/uL (1.3-2.9); LYMPHOCYTES % (AUTO) 1.9 % (21.0-51.0); MEAN CORPUSCULAR HEMOGLOBIN 30.4 pg (27.0-34.0); MEAN CORPUSCULAR HGB CONC 33.9 g/dL (33.0-35.0); MEAN CORPUSCULAR VOLUME 89.5 fL (80.0-100.0); MONOCYTES # (AUTO) 3.5 x10^3/uL (0.3-0.8); MONOCYTES % (AUTO) 8.9 % (0.0-13.0); NEUTROPHILS # (AUTO) 34.3 x10^3/uL (2.2-4.8); NEUTROPHILS % (AUTO) 88.6 % (42.0-75.0); PLATELET COUNT 582 X10^3/uL (150.0-450.0); RED BLOOD COUNT 3.56 X10^6/uL (3.5-5.4); RED CELL DISTRIBUTION WIDTH 14.4 % (11.6-16.5)
[2021-04-16 06:21] LABS: WHITE BLOOD COUNT 38.7 X10^3/uL (3.6-10.0)
[2021-04-16 06:26] LABS: ALANINE AMINOTRANSFERASE 10 Units/L (12-78); ALBUMIN 1.5 g/dL (3.4-5.0); ALKALINE PHOSPHATASE 147 Units/L (46-116); ASPARTATE AMINO TRANSFERASE 17 Units/L (15-37); BLOOD UREA NITROGEN 12 mg/dL (7-18); CALCIUM 8.6 mg/dL (8.5-10.1); CARBON DIOXIDE 21.1 mmol/L (21-32); CHLORIDE 97 mmol/L (98-107); COR CA(FOR HYPOALB) 10.6 mg/dL (8.5-10.1); CREATININE 1.06 mg/dL (0.55-1.02); SODIUM 129 mmol/L (136-145); TOTAL PROTEIN 6.8 g/dL (6.4-8.2); eGFR NON BLACK RACES 58 (>60)
[2021-04-16 06:40] LABS: PLATELET MORPHOLOGY COMMENT NORMAL (NORMAL)
[2021-04-16] MEDS ORDERED: INVANZ INJ 1 GM VIAL 1 GM in NS 100 ML IV + SPIKE MINIBAG* 100 ML IV ONE (07:57)
--- NOTE | 2021-04-16 10:09 | NOTE.SOAP ---
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 Presented to ER with low urine output, Creatinine near 1. Potassium elevated and CT of abdomen consistent with leak with extensive free air . WBC=39k Objective Data Temperature: 97.9 F Pulse Rate: 114 Respiratory Rate: 18 Blood Pressure: 132/92 O2 Sat by Pulse Oximetry: 94 Objective Data: Abdomen distended but not tender. Incision clean and dry Assessment Assessment: Unusual to see leak at 2 weeks post op. Plan Plan: IV antibiotics ,Will plan exploration of abdomen after we get K+ back down, Begin IV antibiotics. May require ostomy and wound vacuum. Discussed risks with patient and her to include sepsis, colostomy , wound vacuum and . Se agrees to proceed.
[2021-04-16 10:22] LABS: BLOOD UREA NITROGEN 13 mg/dL (7-18); CALCIUM 8.3 mg/dL (8.5-10.1); CARBON DIOXIDE 22.8 mmol/L (21-32); CHLORIDE 98 mmol/L (98-107); CREATININE 1.15 mg/dL (0.55-1.02); SODIUM 131 mmol/L (136-145); eGFR NON BLACK RACES 53 (>60)
[2021-04-16 10:57] VITALS: BMI 22.6
[2021-04-16] MEDS: NICOTINE PATCH TD SCH (11:04)
[2021-04-16] MEDS ORDERED: FENTANYL VIAL INJ 100 mcg ONE (11:36)
[2021-04-16] MEDS ORDERED: OFIRMEV IV 1000 MG VIAL 0 MG/0 ML VIAL IV ONE (11:36)
[2021-04-16] MEDS ORDERED: BRIDION ONE (11:36)
[2021-04-16] MEDS ORDERED: ZEMURON 50 MG VIAL ONE (11:37)
[2021-04-16] MEDS ORDERED: PEPCID 20 MG IV PREMIX* 20 MG/50 ML BAG IV ONE (11:37)
[2021-04-16] MEDS ORDERED: OFIRMEV IV 1000 MG VIAL 1,000 MG/100 ML VIAL IV ONE (11:47)
[2021-04-16] MEDS ORDERED: FENTANYL VIAL INJ 250 mcg ONE (11:47)
[2021-04-16] MEDS ORDERED: INVANZ INJ 1 GM VIAL ONE (12:19)
[2021-04-16] MEDS ORDERED: NS 100 ML IV + SPIKE MINIBAG* 100 ML IV ONE (12:19)
--- NOTE | 2021-04-16 12:51 | RAD ---
HISTORYCENTRAL LINE PLACEMENTSTUDYCHEST, 1 VIEWCOMPARISONPortable chest April 15, 2021FINDINGSThe trachea is midline. A right internal jugular line is been placed in the tip is in good position in the superior vena cava without pneumothorax. Large pneumoperitoneum is incidentally observed unchanged from earlier film at 11:50 p.m. on April 15, 2021. History is given that this is post operative the cardiac silhouette is unremarkable . The lungs are clear without focal infiltrate or effusion. The bony thorax is unremarkable.IMPRESSIONRight internal jugular line in good position in the superior vena cava without pneumothorax.Large pneumoperitoneum postoperative.Electronically signed by: RONA AN (Apr 16, 2021 12:50:02)
[2021-04-16] MEDS ORDERED: NS 100 ML IV 100 ML ONE (13:41)
--- NOTE | 2021-04-16 14:23 | DR.UPDATE ---
H&P Update History and Physical Update: History and Physical reviewed and patient examined. Changes noted: NO Yes with the following:will place central line per request of Dr Tinoco H&P Reviewed: Yes Patient was examined?: Yes Procedures (ALL) - Central Line Placement PCM.CLCO: verbal consent Time out performed: Yes Patient placed pm monitor/pulse ox: Yes MD prep: mask, gown, gloves, other Centrial line prep: chlorhexidine scrub, sterile drapes applied Local anesthsia used: lidocane 1% Ultrasound used for placement: Yes (right IJ cannulation visualized) Central line lumen ininserted: triple Post procedure: sutured in place, good blood return, all ports aspirated, flushed,capped, sterile dressing applied Post procedure xray: tip oc catheter in good position, no pneumothorax seen, other Patient tolerated procedure: Yes Complications: none
[2021-04-16] MEDS ORDERED: NS 1000 ML 1,000 ML IV ONE ×2 (15:04→16:34)
[2021-04-16] MEDS ORDERED: PHENERGAN INJ 25 MG IM PRN (15:07)
[2021-04-16] MEDS ORDERED: BENADRYL INJ 50 MG VIAL IVP PRN (15:07)
[2021-04-16] MEDS ORDERED: BARHEMSYS INJ IVP PRN (15:07)
[2021-04-16] MEDS ORDERED: DILAUDID INJ IVP PRN (15:07)
[2021-04-16 15:31] LABS: BASOPHILS % (AUTO) 0.1 % (0.2-1.0); EOSINOPHILS % (AUTO) 0.1 % (0.9-2.9); LYMPHOCYTES # (AUTO) 0.7 X10^3/uL (1.3-2.9); LYMPHOCYTES % (AUTO) 3.6 % (21.0-51.0); MEAN CORPUSCULAR HEMOGLOBIN 29.9 pg (27.0-34.0); MEAN CORPUSCULAR HGB CONC 33.4 g/dL (33.0-35.0); MEAN CORPUSCULAR VOLUME 89.8 fL (80.0-100.0); MEAN PLATELET VOLUME 6.4 fL (7.4-11.0); MONOCYTES # (AUTO) 1.5 x10^3/uL (0.3-0.8); MONOCYTES % (AUTO) 8.1 % (0.0-13.0); NEUTROPHILS # (AUTO) 15.9 x10^3/uL (2.2-4.8); NEUTROPHILS % (AUTO) 88.1 % (42.0-75.0); PLATELET COUNT 467 X10^3/uL (150.0-450.0); RED BLOOD COUNT 2.21 X10^6/uL (3.5-5.4); RED CELL DISTRIBUTION WIDTH 14.3 % (11.6-16.5)
--- NOTE | 2021-04-16 15:41 | DR.OPNOTE ---
OP NOTE Pre-Op Diagnosis: Pneumoperitoneum, s/p resection colon and stomach 2 weeks prior Post-Op Diagnosis: leak of colon anastamosis of transverse colon Procedure Date Date Of Procedure: 04/16/21 Procedure: The patient was taken to the operating suite after placement of a right internal jugular central line for intravenous access. General anesthetic induced. The entire abdomen prepped and draped in sterile fashion. Previous midline incision was opened and there was significant hanley of free air. There was contamination of the abdomen and cultures were obtained of this. Abdomen was washed carefully with saline and suctioned free of all stool. It was an obvious leak of the anastomosis of the transverse colon. This was controlled with bowel clamps. The duodenal stump was inspected and showed no obvious leak. The gastrojejunostomy was also inspected and showed no obvious leak.With my hand over the stomach a 18 Fr NG tube was placed , The white line of [place] of the left colon taken down sharply and the small bowel dissected away from the colon with difficult blunt and sharp dissection . Transverse colon to the left of the anastomosis was divided with an 80 mm MELISSA stapler. The colon at the hepatic flexure was divided with the MELISSA stapler. The Gregg pouch of the left colon was marked with multiple interrupted Prolene sutures which were cut and left long on purpose. The hepatic flexure was mobilized and a ostomy site chosen on the right side of the abdomen just above the belt line and a number 10 knife blade used to remove a one and three-quarter inch paddle of skin in the right lower quadrant. Subcutaneous tissue removed with electrocautery. Cruciate incision made of the external oblique fascia and dissection carried through the peritoneum and this proposed ostomy site widened to 3 fingerbreadths. Colon was taken through this ostomy site and secured to the peritoneum with interrupted silk sutures and to the external olique fascia with interrupted 3-0 Vicryl sutures. Abdomen was irrigated again. There was no active bleeding. The fascia of the midline incision closed with interrupted number 1 Prolene sutures. The skin loosely approximated in 4 areas with interrupted 3-0 Prolene sutures. At this point the staple line of the colon brought through the proposed ostomy site was removed and the colon approximated full-thickness to the subdermal layer with interrupted 4-0 Vicryl sutures. Ostomy appliance applied. Wound vacuum black foam placed over all of the midline incision between the sutures. Long piece of continuous black foam placed over this and this secured to the abdomen with clear adhesive. Incision made over the inferior aspect of the adhesive and the circular tract pad placed over this and it placed to 150 mmHg of suction. The patient was extubated and taken to the recovery room in good condition. Type of Anesthesia: General Anesthetic w/ETT Anesthesia Comment: Right internal jugular venous access placed preoperatively Findings: Leak of: anastomosis of transverse colon with contamination of abdomen, intact gastro-jejunostomy, intact duodenal stump. Specimen/Pathology: transverse colon Type of Fluids Used:: Normal Saline Total Amount of Fluid Infused:: 1500 cc, 500 cc Hespan as well as 1000 cc NS Urine output: 50 cc EBL: 500 cc Drains/Tubes Comment: WOUND VACUUM FOR ABDOMINAL WOUND Cultures: abdominal Complications:: none Needle/Sponge Count:: correct Disposition/Condition: Pt. tolerated procedure without difficulty. Extubated in the OR and taken to PACU in stable condition.
[2021-04-16 15:43] LABS: HEMOGLOBIN 6.6 g/dL (12.0-16.0)
[2021-04-16 15:44] LABS: HEMATOCRIT 19.8 % (36.0-47.0)
--- NOTE | 2021-04-16 16:06 | OR.IMMED ---
IMMEDIATE POST-OP NOTE Immediate Post-Op Note Pre-Op Diagnosis: pneumoperitoneum , s/p colon and stomach resection 2 weeks lucrecia or Post-Op Diagnosis: leak of transverse colon anastamosis Procedure: laparotomy, resection of transverse colon, end colostomy, Gregg pouch, place abdominal wall wound vacuum Description of Procedure: See operative summary Surgeon/Claims Correspondence Clerk: Alejandrina Findings: as above. Leak of colon anastamosis Specimens Removed: transverse colon, cultures abdomen Estimated Blood Loss: 300 cc Drains: NONE Complications: none Progress Notes: To PACU for continued IV antibiotics, IV fluids and bowel rest. Condition: Stable Post Hospital Plans and Medications: as above Final Diagnosis: leak of colon anastamosis
--- NOTE | 2021-04-16 16:10 | DR.H&P ---
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 Long history of alcohol and tobacco abuse but has done well and was seen 3 days ago in the office where she was doing well, having bowel movements , no nausea or vomiting, incision was clean and dry. Yesterday she complained of decreased urinary output and presented to the emergency room and CT scan obtained showed pneumo peritoneum consistent with anastomotic leak. Patient was admitted and placed on IV antibiotics. Will require exporter laparotomy. Allergies Allergies Allergy/AdvReac Type Severity Reaction Status Date / Time acetaminophen [From [facility]] Allergy Verified 04/15/21 21:15 hydrocodone [From [facility]] Allergy Verified 04/15/21 21:15 penicillin G Allergy Verified 04/15/21 21:15 History of Present Illness History of Present Illness: see above Past Medical History Past Medical History: Liver Disease (Hepatitis B) Past Surgical History Surgical History: Abdominal Surgery (Recent composite resection of a transverse colon adenocarcinoma with invasion of the posterior wall of the stomach requirin g resection of both with anastomosis of the colon and gastrojejunostomy. Final pathology showed zero of 14 notes negative with negative margins but anastasiia- neural invasion . Annika) and Bowel Resection Family History Family Medical History: Cancer and Hypertension Social History Does patient currently use any type of tobacco product: Yes Have you used tobacco products in the last 12 months: Yes Type of Tobacco Use: Cigarettes How many years tobacco product used: 38 Does any household member use tobacco: Yes Alcohol Use: Heavy (Prior to colon surgery patient admitted to a 12 pack of 16 ounce beers daily for many years. We treated her preemptively for delirium tremens preprocedure and she had no evidence of that.) Prescription drug monitoring program results: PDMP reviewed with concerns identified (Before I ever saw this patient she has been taking narcotics and benzodiazepines routinely.) Medications Home Medications: acetaminophen [From [facility]] Allergy (Verified 04/15/21 21:15) hydrocodone [From [facility]] Allergy (Verified 04/15/21 21:15) penicillin G Allergy (Verified 04/15/21 21:15) CONTINUE taking the following medications potassium chloride 40 meq PO DAILY 04/16/21 [History] sulfamethoxazole-trimethoprim 1 tab PO BID 04/16/21 [History] Labs Result Diagrams: 04/16/21 15:25 04/16/21 09:35 Labs: Laboratory WBC 18.0 X10^3/uL (3.6-10.0) H D 04/16/21 15:25 RBC 2.21 X10^6/uL (3.5-5.4) L 04/16/21 15:25 Hgb 6.6 g/dL (12.0-16.0) L* D 04/16/21 15:25 Hct 19.8 % (36.0-47.0) L* 04/16/21 15:25 MCV 89.8 fL (80.0-100.0) 04/16/21 15:25 MCH 29.9 pg (27.0-34.0) 04/16/21 15:25 MCHC 33.4 g/dL (33.0-35.0) 04/16/21 15:25 RDW 14.3 % (11.6-16.5) 04/16/21 15:25 Plt Count 467 X10^3/uL (150.0-450.0) H 04/16/21 15:25 Plt Count Comment Increased (ADEQUATE) A 04/16/21 05:00 MPV 6.4 fL (7.4-11.0) L 04/16/21 15:25 Neut % (Auto) 88.1 % (42.0-75.0) H 04/16/21 15:25 Lymph % (Auto) 3.6 % (21.0-51.0) L 04/16/21 15:25 [place] % (Auto) 8.1 % (0.0-13.0) 04/16/21 15:25 Eos % (Auto) 0.1 % (0.9-2.9) L 04/16/21 15:25 Baso % (Auto) 0.1 % (0.2-1.0) L 04/16/21 15:25 Neut # (Auto) 15.9 x10^3/uL (2.2-4.8) H 04/16/21 15:25 Lymph # (Auto) 0.7 X10^3/uL (1.3-2.9) L 04/16/21 15:25 [place] # (Auto) 1.5 x10^3/uL (0.3-0.8) H 04/16/21 15:25 Eos # (Auto) 0.0 x10^3/uL (0.0-0.2) 04/16/21 15:25 Baso # (Auto) 0.0 X10^3/uL (0.0-0.1) 04/16/21 15:25 Absolute Nucleated RBC 0.0 /100WBC 04/16/21 15:25 Total Counted 100 04/16/21 05:00 Neutrophils % (Manual) 86 % (39-76) H 04/16/21 05:00 Band Neutrophils % 5 % (0-10) 04/15/21 21:43 Lymphocytes % (Manual) 2 % (13-43) L 04/16/21 05:00 Monocytes % (Manual) 12 % (4-9) H 04/16/21 05:00 Plt Morphology Comment Normal (NORMAL) 04/16/21 05:00 RBC Morphology Normal (NORMAL) 04/16/21 05:00 Sodium 131 mmol/L (136-145) L 04/16/21 09:35 Corrected Sodium TNP 04/16/21 09:35 Potassium 5.9 mmol/L (3.5-5.1) H 04/16/21 09:35 Chloride 98 mmol/L (98-107) 04/16/21 09:35 Carbon Dioxide 22.8 mmol/L (21-32) 04/16/21 09:35 BUN 13 mg/dL (7-18) 04/16/21 09:35 Creatinine 1.15 mg/dL (0.55-1.02) H 04/16/21 09:35 Est GFR (MDRD) Af Amer > 60 (>60) 04/16/21 09:35 Est GFR (MDRD) Non-Af 53 (>60) L 04/16/21 09:35 Glucose 99 mg/dL (65-99) 04/16/21 09:35 POC Glucose (mg/dL) 101 mg/dL (65-99) H 04/16/21 10:56 Lactic Acid 1.3 mmol/L (0.4-2.0) 04/16/21 15:25 Calcium 8.3 mg/dL (8.5-10.1) L 04/16/21 09:35 Corrected Calcium 10.6 mg/dL (8.5-10.1) H 04/16/21 05:00 Total Bilirubin 0.30 mg/dL (0.2-1.0) 04/16/21 05:00 AST 17 Units/L (15-37) 04/16/21 05:00 ALT 10 Units/L (12-78) L 04/16/21 05:00 Alkaline Phosphatase 147 Units/L (46-116) H 04/16/21 05:00 Total Protein 6.8 g/dL (6.4-8.2) 04/16/21 05:00 Albumin 1.5 g/dL (3.4-5.0) L 04/16/21 05:00 Globulin 5.3 g/dL (2.5-4.5) H 04/16/21 05:00 Albumin/Globulin Ratio 0.3 Ratio (1.1-2.1) L 04/16/21 05:00 Specimen Type Clean catch urine 04/15/21 21:39 Urine Color Dark yellow (YELLOW) 04/15/21 21:39 Urine Appearance Clear (CLEAR) 04/15/21 21:39 Urine pH 6.0 (5.0 - 8.0) 04/15/21 21:39 Ur Specific [place] 1.020 (1.000-1.030) 04/15/21 21:39 Urine Protein 1+ (NEGATIVE) 04/15/21 21:39 Urine Glucose (UA) Negative (NEGATIVE) 04/15/21 21:39 Urine Ketones 2+ (NEGATIVE) 04/15/21 21:39 Urine Occult Blood Negative (NEGATIVE) 04/15/21 21:39 Urine Nitrite Negative (NEGATIVE) 04/15/21 21:39 Urine Bilirubin Negative (NEGATIVE) 04/15/21 21:39 Urine Urobilinogen Normal (NORMAL) 04/15/21 21:39 Ur Leukocyte Esterase Negative (NEGATIVE) 04/15/21 21:39 Urine RBC None seen /HPF (0-3) 04/15/21 21:39 Urine WBC 0-2 /HPF (0-5) 04/15/21 21:39 Ur Squamous Epith Cells Rare /HPF (NEGATIVE) 04/15/21 21:39 Urine Bacteria Trace /HPF (NEGATIVE) 04/15/21 21:39 Ur Culture Indicated? No/not indicated 04/15/21 21:39 SARS-CoV-2 (PCR) Negative (NEGATIVE) 04/16/21 00:53 Influenza Type A (PCR) Negative (NEGATIVE) 04/16/21 00:53 Influenza Type B (PCR) Negative (NEGATIVE) 04/16/21 00:53 RSV (PCR) Negative (NEGATIVE) 04/16/21 00:53 Tissue Pathology To follow 04/16/21 14:27 Blood Type O NEGATIVE 04/16/21 13:56 Antibody Screen Negative 04/16/21 13:56 Crossmatch See Detail 04/16/21 13:56 Review of Systems Constitutional: Weakness Eyes: No Symptoms Reported ENT: No Symptoms Reported Respiratory: No Symptoms Reported Cardiovascular: Other (fast heart rate) Gastrointestinal: Nausea, Abdominal Pain and Other (distention) Genitourinary: Other (low urine output) Musculoskeletal: No Symptoms Reported Skin: No Symptoms Reported Neurological: No Symptoms Reported Physical Exam Vital Signs: Temperature 97.2 F Pulse Rate [Right] 119 Pulse Rate 116 Respiratory Rate 18 Blood Pressure [Right Arm] 132/92 Blood Pressure [Left Arm] 156/78 Blood Pressure 102/62 O2 Sat by Pulse Oximetry 95 Oriented: Normal, Time, Person and Place Eyes: Normal Ear: Normal Nose: Normal Throat: Normal Respiratory: Clear Throughout Cardiovascular: Tachycardia (regular) : Other (patient noted decrease in urine output) Auscultation: Bowel Sounds: Absent Palpation: Normal Tenderness: Normal and Other (distended but not tender) Skin: Normal Musculoskeletal: Normal Mood Description: Calm Affect: Anxious Speech Pattern: Clear Assessment/Plan (1) Gastrointestinal anastomotic leak: Status: Acute Plan: Will correct hyperkalemia with IV hydration and plan laparotomy ,possible bowel resection, possible ostomy. Risks and benefits including discussed with the patient and her . (2) Adenocarcinoma, colon: Status: Acute (3) Anuria: Status: Acute (4) Acute hyperkalemia: Status: Acute Review H&P Reviewed: Yes Patient was examined?: Yes
[2021-04-16] MEDS ORDERED: NS 250 ML IV 250 ML IV ONE ×2 (16:16→20:03)
[2021-04-16] MEDS: LR 1000 ML IV 1,000 ML IV SCH (18:19)
[2021-04-17 00:50] LABS: HEMATOCRIT 30.7 % (36.0-47.0); HEMOGLOBIN 10.5 g/dL (12.0-16.0)
[2021-04-17] MEDS: LR 1000 ML IV 1,000 ML IV SCH ×4 (02:44→15:12)
[2021-04-17] MEDS: DILAUDID INJ IVP PRN ×4 (02:52→21:28)
[2021-04-17 06:35] LABS: BASOPHILS % (AUTO) 0.1 % (0.2-1.0); EOSINOPHILS % (AUTO) 0.1 % (0.9-2.9); HEMATOCRIT 27.4 % (36.0-47.0); HEMOGLOBIN 9.3 g/dL (12.0-16.0); LYMPHOCYTES # (AUTO) 0.5 X10^3/uL (1.3-2.9); LYMPHOCYTES % (AUTO) 2.5 % (21.0-51.0); MEAN CORPUSCULAR HEMOGLOBIN 30.1 pg (27.0-34.0); MEAN CORPUSCULAR HGB CONC 34.1 g/dL (33.0-35.0); MEAN CORPUSCULAR VOLUME 88.3 fL (80.0-100.0); MEAN PLATELET VOLUME 6.5 fL (7.4-11.0); MONOCYTES % (AUTO) 10.5 % (0.0-13.0); NEUTROPHILS % (AUTO) 86.8 % (42.0-75.0); PLATELET COUNT 400 X10^3/uL (150.0-450.0); RED CELL DISTRIBUTION WIDTH 14.5 % (11.6-16.5); WHITE BLOOD COUNT 19.6 X10^3/uL (3.6-10.0)
[2021-04-17 06:57] LABS: ALANINE AMINOTRANSFERASE 8 Units/L (12-78); ALBUMIN 0.7 g/dL (3.4-5.0); ALKALINE PHOSPHATASE 89 Units/L (46-116); ASPARTATE AMINO TRANSFERASE 16 Units/L (15-37); BLOOD UREA NITROGEN 16 mg/dL (7-18); CALCIUM 6.8 mg/dL (8.5-10.1); CARBON DIOXIDE 20.9 mmol/L (21-32); CHLORIDE 105 mmol/L (98-107); COR CA(FOR HYPOALB) 9.4 mg/dL (8.5-10.1); COR NA(FOR HYPERGLY) 135 mmol/L (136-145); CREATININE 0.87 mg/dL (0.55-1.02); SODIUM 135 mmol/L (136-145); TOTAL PROTEIN 3.8 g/dL (6.4-8.2); eGFR NON BLACK RACES > 60 (>60)
[2021-04-17] MEDS: ATIVAN INJ 2 MG VIAL IVP PRN (08:10)
[2021-04-17] MEDS: INVANZ INJ 1 GM VIAL 1 GM in NS 100 ML IV + SPIKE MINIBAG* 100 ML IV SCH (09:20)
[2021-04-17] MEDS: NICOTINE PATCH TD SCH (09:21)
[2021-04-17] MEDS: PROTONIX INJ 40 MG VIAL IVP SCH (09:21)
[2021-04-17] MEDS ORDERED: PHARMACY CONSULT - TPN XX SCH (11:00)
[2021-04-17] MEDS ORDERED: DEXTROSE 10% 1,000 ML IV PRN ×2 (11:40→15:00)
--- NOTE | 2021-04-17 11:47 | DR.PROGNOT ---
Hospital Progress Notes - Progress Note for Day of: Progress Note Date: 04/17/21 - Chief Complaint Chief Complaint: post op day ge. stable with good urone out put. has generalized edema with very low albumine . Hgb is stable . mild draina - Past Medical Family Social History Past Med/Fam/Surg Hx: No changes since H&P Allergies: Allergies acetaminophen [From [place]] Allergy (Verified 04/15/21 21:15) hydrocodone [From [place]] Allergy (Verified 04/15/21 21:15) penicillin G Allergy (Verified 04/15/21 21:15) - Vital Signs Vital Signs: Temperature 98.2 F Pulse Rate [Right] 105 Pulse Rate 110 Respiratory Rate 20 Blood Pressure [Right Arm] 100/65 Blood Pressure [Left Arm] 102/58 Blood Pressure 123/75 O2 Sat by Pulse Oximetry 95 - Physical Exam Oriented: Normal, Time, Person, Place Eyes: Normal Ear: Normal Nose: Normal Throat: Normal Cardiovascular: Tachycardia (regular) : Other (patient noted decrease in urine output) GI:Auscultation: Decreased GI:Palpation: Normal GI: Tenderness: Diffuse (soft with diffuse tenderness . BS + but hypoactive ), Other (distended but not tender) Skin: Normal Musculoskeletal: Normal Mood Description: Calm Affect: Anxious Speech Pattern: Clear, Appropriate - Laboratory and Diagnostics Result Diagrams: 04/17/21 05:54 04/17/21 05:54 Labs: 04/16/21 14:27 Abdomen Wound Gram Stain - Final 04/16/21 14:27 Abdomen Wound Culture - Preliminary Laboratory WBC 19.6 X10^3/uL (3.6-10.0) H 04/17/21 05:54 RBC 3.10 X10^6/uL (3.5-5.4) L 04/17/21 05:54 Hgb 9.3 g/dL (12.0-16.0) L 04/17/21 05:54 Hct 27.4 % (36.0-47.0) L 04/17/21 05:54 MCV 88.3 fL (80.0-100.0) 04/17/21 05:54 MCH 30.1 pg (27.0-34.0) 04/17/21 05:54 MCHC 34.1 g/dL (33.0-35.0) 04/17/21 05:54 RDW 14.5 % (11.6-16.5) 04/17/21 05:54 Plt Count 400 X10^3/uL (150.0-450.0) 04/17/21 05:54 Plt Count Comment Increased (ADEQUATE) A 04/16/21 05:00 MPV 6.5 fL (7.4-11.0) L 04/17/21 05:54 Neut % (Auto) 86.8 % (42.0-75.0) H 04/17/21 05:54 Lymph % (Auto) 2.5 % (21.0-51.0) L 04/17/21 05:54 [place] % (Auto) 10.5 % (0.0-13.0) 04/17/21 05:54 Eos % (Auto) 0.1 % (0.9-2.9) L 04/17/21 05:54 Baso % (Auto) 0.1 % (0.2-1.0) L 04/17/21 05:54 Neut # (Auto) 17.0 x10^3/uL (2.2-4.8) H 04/17/21 05:54 Lymph # (Auto) 0.5 X10^3/uL (1.3-2.9) L 04/17/21 05:54 [place] # (Auto) 2.0 x10^3/uL (0.3-0.8) H 04/17/21 05:54 Eos # (Auto) 0.0 x10^3/uL (0.0-0.2) 04/17/21 05:54 Baso # (Auto) 0.0 X10^3/uL (0.0-0.1) 04/17/21 05:54 Absolute Nucleated RBC 0.1 /100WBC 04/17/21 05:54 Total Counted 100 04/16/21 05:00 Neutrophils % (Manual) 86 % (39-76) H 04/16/21 05:00 Band Neutrophils % 5 % (0-10) 04/15/21 21:43 Lymphocytes % (Manual) 2 % (13-43) L 04/16/21 05:00 Monocytes % (Manual) 12 % (4-9) H 04/16/21 05:00 Plt Morphology Comment Normal (NORMAL) 04/16/21 05:00 RBC Morphology Normal (NORMAL) 04/16/21 05:00 Sodium 135 mmol/L (136-145) L 04/17/21 05:54 Corrected Sodium 135 mmol/L (136-145) L 04/17/21 05:54 Potassium 5.3 mmol/L (3.5-5.1) H 04/17/21 05:54 Chloride 105 mmol/L (98-107) 04/17/21 05:54 Carbon Dioxide 20.9 mmol/L (21-32) L 04/17/21 05:54 BUN 16 mg/dL (7-18) 04/17/21 05:54 Creatinine 0.87 mg/dL (0.55-1.02) 04/17/21 05:54 Est GFR (MDRD) Af Amer > 60 (>60) 04/17/21 05:54 Est GFR (MDRD) Non-Af > 60 (>60) 04/17/21 05:54 Glucose 111 mg/dL (65-99) H 04/17/21 05:54 POC Glucose (mg/dL) 110 mg/dL (65-99) H 04/17/21 05:22 Lactic Acid 1.3 mmol/L (0.4-2.0) 04/16/21 15:25 Calcium 6.8 mg/dL (8.5-10.1) L 04/17/21 05:54 Corrected Calcium 9.4 mg/dL (8.5-10.1) 04/17/21 05:54 Total Bilirubin 0.30 mg/dL (0.2-1.0) 04/17/21 05:54 AST 16 Units/L (15-37) 04/17/21 05:54 ALT 8 Units/L (12-78) L 04/17/21 05:54 Alkaline Phosphatase 89 Units/L (46-116) 04/17/21 05:54 Total Protein 3.8 g/dL (6.4-8.2) L 04/17/21 05:54 Albumin 0.7 g/dL (3.4-5.0) L 04/17/21 05:54 Globulin 3.1 g/dL (2.5-4.5) 04/17/21 05:54 Albumin/Globulin Ratio 0.2 Ratio (1.1-2.1) L 04/17/21 05:54 Specimen Type Clean catch urine 04/15/21 21:39 Urine Color Dark yellow (YELLOW) 04/15/21 21:39 Urine Appearance Clear (CLEAR) 04/15/21 21:39 Urine pH 6.0 (5.0 - 8.0) 04/15/21 21:39 Ur Specific [place] 1.020 (1.000-1.030) 04/15/21 21:39 Urine Protein 1+ (NEGATIVE) 04/15/21 21:39 Urine Glucose (UA) Negative (NEGATIVE) 04/15/21 21:39 Urine Ketones 2+ (NEGATIVE) 04/15/21 21:39 Urine Occult Blood Negative (NEGATIVE) 04/15/21 21:39 Urine Nitrite Negative (NEGATIVE) 04/15/21 21:39 Urine Bilirubin Negative (NEGATIVE) 04/15/21 21:39 Urine Urobilinogen Normal (NORMAL) 04/15/21 21:39 Ur Leukocyte Esterase Negative (NEGATIVE) 04/15/21 21:39 Urine RBC None seen /HPF (0-3) 04/15/21 21:39 Urine WBC 0-2 /HPF (0-5) 04/15/21 21:39 Ur Squamous Epith Cells Rare /HPF (NEGATIVE) 04/15/21 21:39 Urine Bacteria Trace /HPF (NEGATIVE) 04/15/21 21:39 Ur Culture Indicated? No/not indicated 04/15/21 21:39 SARS-CoV-2 (PCR) Negative (NEGATIVE) 04/16/21 00:53 Influenza Type A (PCR) Negative (NEGATIVE) 04/16/21 00:53 Influenza Type B (PCR) Negative (NEGATIVE) 04/16/21 00:53 RSV (PCR) Negative (NEGATIVE) 04/16/21 00:53 Tissue Pathology To follow 04/16/21 14:27 Blood Type O NEGATIVE 04/16/21 13:56 Antibody Screen Negative 04/16/21 13:56 Crossmatch See Detail 04/16/21 13:56 - Assessment and Plan 1: PO laparotomy . TC resection with proximal colostomy and drainage. peritonitis ,. anemia . hypoalbuminemia ,. on TPN, ATB ( added Flagyl ). DVT prophylaxis ,, OOB .and PO care .. - Problem Patient Problems: Patient Problems Gastrointestinal anastomotic leak (Acute) K91.89 Anuria (Acute) R34 Jejunitis (Acute) K52.9 Acute hyperkalemia (Acute) E87.5 Acute hyponatremia (Acute) E87.1
[2021-04-17] MEDS: TRACE ELEMENTS IV SCH ×6 (11:59→23:38)
[2021-04-17] MEDS: MVI IV SCH ×6 (11:59→23:38)
[2021-04-17] MEDS: CLINIMIX IV SCH ×6 (11:59→23:38)
[2021-04-17] MEDS: ALBUMIN HUMAN 25%- 100 ML 100 ML IV SCH (12:22)
[2021-04-17] MEDS ORDERED: DEXTROSE 10% 1,000 ML IV SCH (13:00)
[2021-04-17] MEDS: FLAGYL IV PREMIX 500 MG BAG 500 MG/100 ML BAG IV SCH ×2 (13:16→21:26)
[2021-04-17] MEDS ORDERED: ULTANE GAS IN ONE (13:31)
[2021-04-17] MEDS ORDERED: XYLOCAINE 2 % (PLAIN) ONE (13:31)
[2021-04-17] MEDS ORDERED: LACRI-LUBE S.O.P. ONE (13:31)
[2021-04-17] MEDS ORDERED: NEO-SYNEPHRINE INJ ONE (13:31)
[2021-04-17] MEDS ORDERED: DIPRIVAN VIAL ONE (13:31)
[2021-04-17] MEDS ORDERED: VERSED ONE (13:31)
[2021-04-18] MEDS: ATIVAN INJ 2 MG VIAL IVP PRN (00:30)
[2021-04-18 06:16] LABS: PREALBUMIN 4.5 mg/dL (18-35.7)
[2021-04-18 06:18] LABS: ALANINE AMINOTRANSFERASE 10 Units/L (12-78); ALBUMIN 1.2 g/dL (3.4-5.0); COR CA(FOR HYPOALB) 9.2 mg/dL (8.5-10.1); SODIUM 135 mmol/L (136-145); eGFR NON BLACK RACES > 60 (>60)
[2021-04-18] MEDS: DILAUDID INJ IVP PRN ×3 (06:37→20:11)
[2021-04-18] MEDS: FLAGYL IV PREMIX 500 MG BAG 500 MG/100 ML BAG IV SCH ×3 (06:37→21:22)
[2021-04-18 06:55] LABS: BASOPHILS % (AUTO) 0.1 % (0.2-1.0); EOSINOPHILS % (AUTO) 0.3 % (0.9-2.9); HEMATOCRIT 22.6 % (36.0-47.0); LYMPHOCYTES # (AUTO) 0.6 X10^3/uL (1.3-2.9); LYMPHOCYTES % (AUTO) 3.8 % (21.0-51.0); MEAN CORPUSCULAR HGB CONC 34.1 g/dL (33.0-35.0); MEAN CORPUSCULAR VOLUME 88.1 fL (80.0-100.0); MONOCYTES # (AUTO) 1.3 x10^3/uL (0.3-0.8); MONOCYTES % (AUTO) 7.8 % (0.0-13.0); NEUTROPHILS # (AUTO) 14.6 x10^3/uL (2.2-4.8); PLATELET COUNT 297 X10^3/uL (150.0-450.0); RED BLOOD COUNT 2.57 X10^6/uL (3.5-5.4); RED CELL DISTRIBUTION WIDTH 14.7 % (11.6-16.5); WHITE BLOOD COUNT 16.6 X10^3/uL (3.6-10.0)
[2021-04-18 07:00] LABS: ALKALINE PHOSPHATASE 97 Units/L (46-116); ASPARTATE AMINO TRANSFERASE 25 Units/L (15-37); BLOOD UREA NITROGEN 15 mg/dL (7-18); CARBON DIOXIDE 24.5 mmol/L (21-32); CHLORIDE 103 mmol/L (98-107); COR NA(FOR HYPERGLY) 136 mmol/L (136-145); CREATININE 0.75 mg/dL (0.55-1.02); MAGNESIUM 1.7 mg/dL (1.7-2.9); TOTAL PROTEIN 4.8 g/dL (6.4-8.2)
[2021-04-18 07:03] LABS: HEMOGLOBIN 7.7 g/dL (12.0-16.0)
[2021-04-18] MEDS: ALBUMIN HUMAN 25%- 100 ML 100 ML IV SCH (09:23)
[2021-04-18] MEDS: NICOTINE PATCH TD SCH (09:24)
[2021-04-18] MEDS: INVANZ INJ 1 GM VIAL 1 GM in NS 100 ML IV + SPIKE MINIBAG* 100 ML IV SCH (09:24)
[2021-04-18] MEDS: LOVENOX INJ 40 MG SYR SC SCH (09:51)
[2021-04-18] MEDS: PROTONIX INJ 40 MG VIAL IVP SCH (09:52)
[2021-04-18] MEDS: MVI IV SCH ×8 (09:53→20:10)
[2021-04-18] MEDS: [UNRECOGNIZED DRUG - OTHER] IV SCH ×8 (09:53→20:10)
[2021-04-18] MEDS: CLINIMIX IV SCH ×8 (09:53→20:10)
[2021-04-18] MEDS: TRACE ELEMENTS IV SCH ×8 (09:53→20:10)
--- NOTE | 2021-04-18 12:48 | DR.PROGNOT ---
Hospital Progress Notes - Progress Note for Day of: Progress Note Date: 04/18/21 - Chief Complaint Chief Complaint: post op day 2. awake and confused today .. c/o moderate andominal pain. colostomy is functioning with green fluid. good urine out put. has generalized edema with very low albumine .. - Past Medical Family Social History Past Med/Fam/Surg Hx: No changes since H&P Allergies: Allergies acetaminophen [From [place]] Allergy (Verified 04/15/21 21:15) hydrocodone [From [place]] Allergy (Verified 04/15/21 21:15) penicillin G Allergy (Verified 04/15/21 21:15) - Vital Signs Vital Signs: Temperature 98.3 F Pulse Rate [Right] 105 Pulse Rate 115 Respiratory Rate 34 Blood Pressure [Right Arm] 100/65 Blood Pressure [Left Arm] 102/58 Blood Pressure 164/96 O2 Sat by Pulse Oximetry 98 - Physical Exam Oriented: Normal, Time, Person, Place Eyes: Normal Ear: Normal Nose: Normal Throat: Normal Cardiovascular: Tachycardia (regular) : Other (patient noted decrease in urine output) GI:Auscultation: Decreased GI:Palpation: Normal GI: Tenderness: Diffuse (soft with diffuse tenderness . BS + but hypoactive ), Other (distended but not tender) Skin: Normal Musculoskeletal: Normal Mood Description: Calm Affect: Anxious Speech Pattern: Delayed - Laboratory and Diagnostics Result Diagrams: 04/18/21 06:37 04/18/21 06:37 Labs: 04/16/21 01:45 Blood Blood Culture - Preliminary 04/16/21 01:40 Blood Blood Culture - Preliminary 04/16/21 14:27 Abdomen Wound Gram Stain - Final 04/16/21 14:27 Abdomen Wound Culture - Preliminary Laboratory WBC 16.6 X10^3/uL (3.6-10.0) H 04/18/21 06:37 RBC 2.57 X10^6/uL (3.5-5.4) L 04/18/21 06:37 Hgb 7.7 g/dL (12.0-16.0) L 04/18/21 06:37 Hct 22.6 % (36.0-47.0) L 04/18/21 06:37 MCV 88.1 fL (80.0-100.0) 04/18/21 06:37 MCH 30.0 pg (27.0-34.0) 04/18/21 06:37 MCHC 34.1 g/dL (33.0-35.0) 04/18/21 06:37 RDW 14.7 % (11.6-16.5) 04/18/21 06:37 Plt Count 297 X10^3/uL (150.0-450.0) 04/18/21 06:37 Plt Count Comment Increased (ADEQUATE) A 04/16/21 05:00 MPV 6.0 fL (7.4-11.0) L 04/18/21 06:37 Neut % (Auto) 88.0 % (42.0-75.0) H 04/18/21 06:37 Lymph % (Auto) 3.8 % (21.0-51.0) L 04/18/21 06:37 [place] % (Auto) 7.8 % (0.0-13.0) 04/18/21 06:37 Eos % (Auto) 0.3 % (0.9-2.9) L 04/18/21 06:37 Baso % (Auto) 0.1 % (0.2-1.0) L 04/18/21 06:37 Neut # (Auto) 14.6 x10^3/uL (2.2-4.8) H 04/18/21 06:37 Lymph # (Auto) 0.6 X10^3/uL (1.3-2.9) L 04/18/21 06:37 [place] # (Auto) 1.3 x10^3/uL (0.3-0.8) H 04/18/21 06:37 Eos # (Auto) 0.0 x10^3/uL (0.0-0.2) 04/18/21 06:37 Baso # (Auto) 0.0 X10^3/uL (0.0-0.1) 04/18/21 06:37 Absolute Nucleated RBC 0.1 /100WBC 04/18/21 06:37 Total Counted 100 04/16/21 05:00 Neutrophils % (Manual) 86 % (39-76) H 04/16/21 05:00 Band Neutrophils % 5 % (0-10) 04/15/21 21:43 Lymphocytes % (Manual) 2 % (13-43) L 04/16/21 05:00 Monocytes % (Manual) 12 % (4-9) H 04/16/21 05:00 Plt Morphology Comment Normal (NORMAL) 04/16/21 05:00 RBC Morphology Normal (NORMAL) 04/16/21 05:00 Sodium 135 mmol/L (136-145) L 04/18/21 06:37 Corrected Sodium 136 mmol/L (136-145) 04/18/21 06:37 Potassium 3.4 mmol/L (3.5-5.1) L 04/18/21 06:37 Chloride 103 mmol/L (98-107) 04/18/21 06:37 Carbon Dioxide 24.5 mmol/L (21-32) 04/18/21 06:37 BUN 15 mg/dL (7-18) 04/18/21 06:37 Creatinine 0.75 mg/dL (0.55-1.02) 04/18/21 06:37 Est GFR (MDRD) Af Amer > 60 (>60) 04/18/21 06:37 Est GFR (MDRD) Non-Af > 60 (>60) 04/18/21 06:37 Glucose 123 mg/dL (65-99) H 04/18/21 06:37 POC Glucose (mg/dL) 183 mg/dL (65-99) H 04/18/21 11:54 Lactic Acid 1.3 mmol/L (0.4-2.0) 04/16/21 15:25 Calcium 7.0 mg/dL (8.5-10.1) L 04/18/21 06:37 Corrected Calcium 9.2 mg/dL (8.5-10.1) 04/18/21 06:37 Phosphorus 2.2 mg/dL (2.6-4.7) L 04/18/21 04:30 Magnesium 1.7 mg/dL (1.7-2.9) 04/18/21 06:37 Total Bilirubin 0.20 mg/dL (0.2-1.0) 04/18/21 06:37 AST 25 Units/L (15-37) 04/18/21 06:37 ALT 10 Units/L (12-78) L 04/18/21 06:37 Alkaline Phosphatase 97 Units/L (46-116) 04/18/21 06:37 Total Protein 4.8 g/dL (6.4-8.2) L 04/18/21 06:37 Albumin 1.2 g/dL (3.4-5.0) L 04/18/21 06:37 Globulin 3.6 g/dL (2.5-4.5) 04/18/21 06:37 Albumin/Globulin Ratio 0.3 Ratio (1.1-2.1) L 04/18/21 06:37 Prealbumin 4.5 mg/dL (18-35.7) L 04/18/21 06:37 Triglycerides 152 mg/dL (0-150) H 04/18/21 04:30 Specimen Type Clean catch urine 04/15/21 21:39 Urine Color Dark yellow (YELLOW) 04/15/21 21:39 Urine Appearance Clear (CLEAR) 04/15/21 21:39 Urine pH 6.0 (5.0 - 8.0) 04/15/21 21:39 Ur Specific [place] 1.020 (1.000-1.030) 04/15/21 21:39 Urine Protein 1+ (NEGATIVE) 04/15/21 21:39 Urine Glucose (UA) Negative (NEGATIVE) 04/15/21 21:39 Urine Ketones 2+ (NEGATIVE) 04/15/21 21:39 Urine Occult Blood Negative (NEGATIVE) 04/15/21 21:39 Urine Nitrite Negative (NEGATIVE) 04/15/21 21:39 Urine Bilirubin Negative (NEGATIVE) 04/15/21 21:39 Urine Urobilinogen Normal (NORMAL) 04/15/21 21:39 Ur Leukocyte Esterase Negative (NEGATIVE) 04/15/21 21:39 Urine RBC None seen /HPF (0-3) 04/15/21 21:39 Urine WBC 0-2 /HPF (0-5) 04/15/21 21:39 Ur Squamous Epith Cells Rare /HPF (NEGATIVE) 04/15/21 21:39 Urine Bacteria Trace /HPF (NEGATIVE) 04/15/21 21:39 Ur Culture Indicated? No/not indicated 04/15/21 21:39 SARS-CoV-2 (PCR) Negative (NEGATIVE) 04/16/21 00:53 Influenza Type A (PCR) Negative (NEGATIVE) 04/16/21 00:53 Influenza Type B (PCR) Negative (NEGATIVE) 04/16/21 00:53 RSV (PCR) Negative (NEGATIVE) 04/16/21 00:53 Tissue Pathology To follow 04/16/21 14:27 Blood Type O NEGATIVE 04/16/21 13:56 Antibody Screen Negative 04/16/21 13:56 Crossmatch See Detail 04/16/21 13:56 - Assessment and Plan 1: PO laparotomy . TC resection with proximal colostomy . peritonitis ,. anemia . hypoalbuminemia ,. on TPN, ATB ( added Flagyl ). DVT prophylaxis ,, O OB .and PO care .. to d/c NGT .. may have water .. - Problem Patient Problems: Patient Problems Gastrointestinal anastomotic leak (Acute) K91.89 Anuria (Acute) R34 Jejunitis (Acute) K52.9 Acute hyperkalemia (Acute) E87.5 Acute hyponatremia (Acute) E87.1
[2021-04-18] MEDS: ZOFRAN INJ 4 MG VIAL IVP PRN (14:17)
[2021-04-18] MEDS: LR 1000 ML IV 1,000 ML IV SCH (17:26)
[2021-04-18] MEDS ORDERED: LIBRIUM PO PRN (18:54)
[2021-04-18] MEDS: HumuLIN R SUBCUT PRN (20:11)
[2021-04-19] MEDS: LR 1000 ML IV 1,000 ML IV SCH (03:04)
[2021-04-19] MEDS: TRACE ELEMENTS IV SCH ×18 (03:05→22:06)
[2021-04-19] MEDS: [UNRECOGNIZED DRUG - OTHER] IV SCH ×18 (03:05→22:06)
[2021-04-19] MEDS: CLINIMIX IV SCH ×18 (03:05→22:06)
[2021-04-19] MEDS: MVI IV SCH ×18 (03:05→22:06)
[2021-04-19] MEDS: DILAUDID INJ IVP PRN ×2 (03:05→23:55)
[2021-04-19 05:20] LABS: ALANINE AMINOTRANSFERASE 24 Units/L (12-78); ALBUMIN 1.6 g/dL (3.4-5.0); ALKALINE PHOSPHATASE 147 Units/L (46-116); ASPARTATE AMINO TRANSFERASE 34 Units/L (15-37); BLOOD UREA NITROGEN 15 mg/dL (7-18); CALCIUM 7.9 mg/dL (8.5-10.1); CARBON DIOXIDE 23.4 mmol/L (21-32); CHLORIDE 105 mmol/L (98-107); COR CA(FOR HYPOALB) 9.8 mg/dL (8.5-10.1); COR NA(FOR HYPERGLY) 141 mmol/L (136-145); CREATININE 0.66 mg/dL (0.55-1.02); SODIUM 139 mmol/L (136-145); TOTAL PROTEIN 5.7 g/dL (6.4-8.2); eGFR NON BLACK RACES > 60 (>60)
[2021-04-19] MEDS: FLAGYL IV PREMIX 500 MG BAG 500 MG/100 ML BAG IV SCH ×3 (06:11→21:35)
[2021-04-19] MEDS: LIBRIUM PO SCH ×3 (07:04→21:36)
[2021-04-19 07:42] LABS: BASOPHILS % (AUTO) 0.1 % (0.2-1.0); HEMATOCRIT 20.9 % (36.0-47.0); LYMPHOCYTES # (AUTO) 0.5 X10^3/uL (1.3-2.9); LYMPHOCYTES % (AUTO) 2.6 % (21.0-51.0); MEAN CORPUSCULAR HEMOGLOBIN 29.9 pg (27.0-34.0); MEAN CORPUSCULAR HGB CONC 33.5 g/dL (33.0-35.0); MEAN CORPUSCULAR VOLUME 89.3 fL (80.0-100.0); MEAN PLATELET VOLUME 6.7 fL (7.4-11.0); MONOCYTES # (AUTO) 1.5 x10^3/uL (0.3-0.8); MONOCYTES % (AUTO) 7.5 % (0.0-13.0); NEUTROPHILS # (AUTO) 17.7 x10^3/uL (2.2-4.8); NEUTROPHILS % (AUTO) 89.8 % (42.0-75.0); PLATELET COUNT 295 X10^3/uL (150.0-450.0); RED BLOOD COUNT 2.34 X10^6/uL (3.5-5.4); RED CELL DISTRIBUTION WIDTH 14.7 % (11.6-16.5); WHITE BLOOD COUNT 19.7 X10^3/uL (3.6-10.0)
[2021-04-19] MEDS: INVANZ INJ 1 GM VIAL 1 GM in NS 100 ML IV + SPIKE MINIBAG* 100 ML IV SCH (09:35)
[2021-04-19] MEDS: LOVENOX INJ 40 MG SYR SC SCH (09:36)
[2021-04-19] MEDS: NICOTINE PATCH TD SCH (09:38)
[2021-04-19] MEDS: PROTONIX INJ 40 MG VIAL IVP SCH (09:38)
--- NOTE | 2021-04-19 10:41 | DR.PROGNOT ---
Hospital Progress Notes - Progress Note for Day of: Progress Note Date: 04/19/21 - Chief Complaint Chief Complaint: post op day 3. awake and more oriented .no nausea or vomiting .colostomy is functioning .moderate SOB . good urine out put .. - Past Medical Family Social History Past Med/Fam/Surg Hx: No changes since H&P Allergies: Allergies acetaminophen [From [place]] Allergy (Verified 04/15/21 21:15) hydrocodone [From [place]] Allergy (Verified 04/15/21 21:15) penicillin G Allergy (Verified 04/15/21 21:15) - Vital Signs Vital Signs: Temperature 98.4 F Pulse Rate [Right] 105 Pulse Rate 99 Respiratory Rate 20 Blood Pressure [Right Arm] 100/65 Blood Pressure [Left Arm] 102/58 Blood Pressure 165/91 O2 Sat by Pulse Oximetry 97 - Physical Exam Oriented: Normal, Time, Person, Place Eyes: Normal Ear: Normal Nose: Normal Throat: Normal Cardiovascular: Tachycardia (regular) : Other (patient noted decrease in urine output) GI:Auscultation: Decreased GI:Palpation: Normal GI: Tenderness: Diffuse (soft with diffuse tenderness . BS + but hypoactive ), Other (distended but not tender) Skin: Normal Musculoskeletal: Normal Mood Description: Calm Affect: Anxious Speech Pattern: Clear, Inappropriate - Laboratory and Diagnostics Result Diagrams: 04/19/21 04:20 04/19/21 04:20 Labs: 04/16/21 14:27 Abdomen Wound Gram Stain - Final 04/16/21 14:27 Abdomen Wound Culture - Preliminary 04/16/21 01:45 Blood Blood Culture - Preliminary 04/16/21 01:40 Blood Blood Culture - Preliminary Laboratory WBC 19.7 X10^3/uL (3.6-10.0) H 04/19/21 04:20 RBC 2.34 X10^6/uL (3.5-5.4) L 04/19/21 04:20 Hgb 7.0 g/dL (12.0-16.0) L 04/19/21 04:20 Hct 20.9 % (36.0-47.0) L 04/19/21 04:20 MCV 89.3 fL (80.0-100.0) 04/19/21 04:20 MCH 29.9 pg (27.0-34.0) 04/19/21 04:20 MCHC 33.5 g/dL (33.0-35.0) 04/19/21 04:20 RDW 14.7 % (11.6-16.5) 04/19/21 04:20 Plt Count 295 X10^3/uL (150.0-450.0) 04/19/21 04:20 Plt Count Comment Increased (ADEQUATE) A 04/16/21 05:00 MPV 6.7 fL (7.4-11.0) L 04/19/21 04:20 Neut % (Auto) 89.8 % (42.0-75.0) H 04/19/21 04:20 Lymph % (Auto) 2.6 % (21.0-51.0) L 04/19/21 04:20 [place] % (Auto) 7.5 % (0.0-13.0) 04/19/21 04:20 Eos % (Auto) 0.0 % (0.9-2.9) L 04/19/21 04:20 Baso % (Auto) 0.1 % (0.2-1.0) L 04/19/21 04:20 Neut # (Auto) 17.7 x10^3/uL (2.2-4.8) H 04/19/21 04:20 Lymph # (Auto) 0.5 X10^3/uL (1.3-2.9) L 04/19/21 04:20 [place] # (Auto) 1.5 x10^3/uL (0.3-0.8) H 04/19/21 04:20 Eos # (Auto) 0.0 x10^3/uL (0.0-0.2) 04/19/21 04:20 Baso # (Auto) 0.0 X10^3/uL (0.0-0.1) 04/19/21 04:20 Absolute Nucleated RBC 0.0 /100WBC 04/19/21 04:20 Total Counted 100 04/16/21 05:00 Neutrophils % (Manual) 86 % (39-76) H 04/16/21 05:00 Band Neutrophils % 5 % (0-10) 04/15/21 21:43 Lymphocytes % (Manual) 2 % (13-43) L 04/16/21 05:00 Monocytes % (Manual) 12 % (4-9) H 04/16/21 05:00 Plt Morphology Comment Normal (NORMAL) 04/16/21 05:00 RBC Morphology Normal (NORMAL) 04/16/21 05:00 Sodium 139 mmol/L (136-145) 04/19/21 04:20 Corrected Sodium 141 mmol/L (136-145) 04/19/21 04:20 Potassium 3.0 mmol/L (3.5-5.1) L* 04/19/21 04:20 Chloride 105 mmol/L (98-107) 04/19/21 04:20 Carbon Dioxide 23.4 mmol/L (21-32) 04/19/21 04:20 BUN 15 mg/dL (7-18) 04/19/21 04:20 Creatinine 0.66 mg/dL (0.55-1.02) 04/19/21 04:20 Est GFR (MDRD) Af Amer > 60 (>60) 04/19/21 04:20 Est GFR (MDRD) Non-Af > 60 (>60) 04/19/21 04:20 Glucose 178 mg/dL (65-99) H 04/19/21 04:20 POC Glucose (mg/dL) 161 mg/dL (65-99) H 04/19/21 02:58 Lactic Acid 1.3 mmol/L (0.4-2.0) 04/16/21 15:25 Calcium 7.9 mg/dL (8.5-10.1) L 04/19/21 04:20 Corrected Calcium 9.8 mg/dL (8.5-10.1) 04/19/21 04:20 Phosphorus 2.2 mg/dL (2.6-4.7) L 04/18/21 04:30 Magnesium 1.7 mg/dL (1.7-2.9) 04/18/21 06:37 Total Bilirubin 0.20 mg/dL (0.2-1.0) 04/19/21 04:20 AST 34 Units/L (15-37) 04/19/21 04:20 ALT 24 Units/L (12-78) 04/19/21 04:20 Alkaline Phosphatase 147 Units/L (46-116) H 04/19/21 04:20 Total Protein 5.7 g/dL (6.4-8.2) L 04/19/21 04:20 Albumin 1.6 g/dL (3.4-5.0) L 04/19/21 04:20 Globulin 4.1 g/dL (2.5-4.5) 04/19/21 04:20 Albumin/Globulin Ratio 0.4 Ratio (1.1-2.1) L 04/19/21 04:20 Prealbumin 4.5 mg/dL (18-35.7) L 04/18/21 06:37 Triglycerides 152 mg/dL (0-150) H 04/18/21 04:30 Specimen Type Clean catch urine 04/15/21 21:39 Urine Color Dark yellow (YELLOW) 04/15/21 21:39 Urine Appearance Clear (CLEAR) 04/15/21 21:39 Urine pH 6.0 (5.0 - 8.0) 04/15/21 21:39 Ur Specific [place] 1.020 (1.000-1.030) 04/15/21 21:39 Urine Protein 1+ (NEGATIVE) 04/15/21 21:39 Urine Glucose (UA) Negative (NEGATIVE) 04/15/21 21:39 Urine Ketones 2+ (NEGATIVE) 04/15/21 21:39 Urine Occult Blood Negative (NEGATIVE) 04/15/21 21:39 Urine Nitrite Negative (NEGATIVE) 04/15/21 21:39 Urine Bilirubin Negative (NEGATIVE) 04/15/21 21:39 Urine Urobilinogen Normal (NORMAL) 04/15/21 21:39 Ur Leukocyte Esterase Negative (NEGATIVE) 04/15/21 21:39 Urine RBC None seen /HPF (0-3) 04/15/21 21:39 Urine WBC 0-2 /HPF (0-5) 04/15/21 21:39 Ur Squamous Epith Cells Rare /HPF (NEGATIVE) 04/15/21 21:39 Urine Bacteria Trace /HPF (NEGATIVE) 04/15/21 21:39 Ur Culture Indicated? No/not indicated 04/15/21 21:39 SARS-CoV-2 (PCR) Negative (NEGATIVE) 04/16/21 00:53 Influenza Type A (PCR) Negative (NEGATIVE) 04/16/21 00:53 Influenza Type B (PCR) Negative (NEGATIVE) 04/16/21 00:53 RSV (PCR) Negative (NEGATIVE) 04/16/21 00:53 Tissue Pathology To follow 04/16/21 14:27 Blood Type O NEGATIVE 04/16/21 13:56 Antibody Screen Negative 04/16/21 13:56 Crossmatch See Detail 04/16/21 13:56 - Assessment and Plan 1: PO laparotomy . TC resection with proximal colostomy . peritonitis ,. anemia . hypoalbuminemia ,. on TPN, ATB ( added Flagyl ). DVT prophylaxis ,, OOB .and PO care . on full liquid . - Problem Patient Problems: Patient Problems Gastrointestinal anastomotic leak (Acute) K91.89 Anuria (Acute) R34 Jejunitis (Acute) K52.9 Acute hyperkalemia (Acute) E87.5 Acute hyponatremia (Acute) E87.1
[2021-04-19] MEDS: ALBUMIN HUMAN 25%- 100 ML 100 ML IV SCH (11:39)
--- NOTE | 2021-04-19 11:40 | RAD ---
HISTORYLeukocytosisSTUDYSingle-view [id number] trachea is midline. The cardiac silhouette is accentuated by portable technique. A right-sided central venous catheter is observed the tip in the SVC. Significant improvement of previously seen pneumoperitoneum is noted. Subsegmental atelectasis right and left base is observed secondary to poor inspiratory effort. The bony thorax is unremarkable.IMPRESSIONSubsegmental atelectasis right and left base.Electronically signed by: GUERA TORRE (Apr 19, 2021 11:38:43)
[2021-04-19] MEDS ORDERED: DRUG FILTER EXTENSION SET ONE (14:46)
[2021-04-19] MEDS: HumuLIN R SUBCUT PRN (21:00)
[2021-04-19 21:01] LABS: HEMATOCRIT 22.7 % (36.0-47.0); HEMOGLOBIN 7.4 g/dL (12.0-16.0)
[2021-04-20] MEDS: TRACE ELEMENTS IV SCH ×14 (02:30→13:56)
[2021-04-20] MEDS: [UNRECOGNIZED DRUG - OTHER] IV SCH ×10 (02:30→09:16)
[2021-04-20] MEDS: CLINIMIX IV SCH ×14 (02:30→13:56)
[2021-04-20] MEDS: MVI IV SCH ×14 (02:30→13:56)
[2021-04-20 05:11] LABS: BASOPHILS # (AUTO) 0.1 X10^3/uL (0.0-0.1); BASOPHILS % (AUTO) 0.4 % (0.2-1.0); EOSINOPHILS % (AUTO) 0.1 % (0.9-2.9); HEMATOCRIT 23.6 % (36.0-47.0); HEMOGLOBIN 7.9 g/dL (12.0-16.0); LYMPHOCYTES % (AUTO) 4.6 % (21.0-51.0); MEAN CORPUSCULAR HEMOGLOBIN 29.8 pg (27.0-34.0); MEAN CORPUSCULAR HGB CONC 33.5 g/dL (33.0-35.0); MEAN PLATELET VOLUME 6.7 fL (7.4-11.0); MONOCYTES # (AUTO) 2.1 x10^3/uL (0.3-0.8); MONOCYTES % (AUTO) 9.9 % (0.0-13.0); NEUTROPHILS # (AUTO) 17.9 x10^3/uL (2.2-4.8); PLATELET COUNT 361 X10^3/uL (150.0-450.0); RED BLOOD COUNT 2.66 X10^6/uL (3.5-5.4); RED CELL DISTRIBUTION WIDTH 15.1 % (11.6-16.5); WHITE BLOOD COUNT 21.1 X10^3/uL (3.6-10.0)
[2021-04-20 05:21] LABS: ALANINE AMINOTRANSFERASE 33 Units/L (12-78); ALKALINE PHOSPHATASE 187 Units/L (46-116); ASPARTATE AMINO TRANSFERASE 38 Units/L (15-37); BLOOD UREA NITROGEN 19 mg/dL (7-18); CARBON DIOXIDE 26.2 mmol/L (21-32); CHLORIDE 109 mmol/L (98-107); COR CA(FOR HYPOALB) 9.6 mg/dL (8.5-10.1); COR NA(FOR HYPERGLY) 146 mmol/L (136-145); CREATININE 0.66 mg/dL (0.55-1.02); SODIUM 143 mmol/L (136-145); TOTAL PROTEIN 5.9 g/dL (6.4-8.2); TRIGLYCERIDES 189 mg/dL (0-150); eGFR NON BLACK RACES > 60 (>60)
[2021-04-20 05:35] LABS: METAMYELOCYTES % 9; MYELOCYTES % 4
[2021-04-20 05:36] LABS: HYPOCHROMASIA SLIGHT; PLATELET MORPHOLOGY COMMENT NORMAL (NORMAL)
[2021-04-20] MEDS: LIBRIUM PO SCH ×4 (06:36→22:00)
[2021-04-20] MEDS: FLAGYL IV PREMIX 500 MG BAG 500 MG/100 ML BAG IV SCH ×3 (06:36→22:00)
[2021-04-20] MEDS: HumuLIN R SUBCUT PRN ×2 (06:36→12:15)
[2021-04-20] MEDS: ALBUMIN HUMAN 25%- 100 ML 100 ML IV SCH (08:52)
[2021-04-20] MEDS: INVANZ INJ 1 GM VIAL 1 GM in NS 100 ML IV + SPIKE MINIBAG* 100 ML IV SCH (09:16)
[2021-04-20] MEDS: LOVENOX INJ 40 MG SYR SC SCH (09:16)
[2021-04-20] MEDS: NICOTINE PATCH TD SCH (09:17)
[2021-04-20] MEDS: PROTONIX INJ 40 MG VIAL IVP SCH (09:17)
[2021-04-20] MEDS: ZOFRAN INJ 4 MG VIAL IVP PRN (12:55)
[2021-04-20] MEDS: DILAUDID INJ IVP PRN ×2 (12:55→22:00)
--- NOTE | 2021-04-20 13:54 | NOTE.SOAP ---
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 At 2 weeks post op had leak of colon anastamosis requiring laparotomy with resection of transverse colon , end colostomy and wash out of abdomen. Has done well over the weekend , mild confusion (hx of severe tobacco and ethanol abuse). HAs been afebrile . Colostomy functionaing. ON TPN and full liquids . Wound vacuum changed by me of midline wound without difficulty . WBC remains elevated . NG and moura removed. Objective Data Temperature: 98.4 F Pulse Rate: 118 Respiratory Rate: 28 Blood Pressure: 139/89 O2 Sat by Pulse Oximetry: 97 Objective Data: Mildly tachypneic , Mildly confused , HgB 7.9, WBC= 19 k, K+= 3.3, BUN=19, creatinine =0.66, CXR with b/l atelectasis. Abdomen soft and not distended. Cultures with no growth. Wound vacuum changed, fascia,iintact, no drainage from this wound . Early granulation . Wound vacuum replaced. Assessment Assessment: POD #4 , Stable.Concerned about confusion as possible result of ETOH withdrawal vs sepsis. Continue IV antibiotcs. Good pulmonary toilet. CXR and labs in AM. May need f/u CT of Abdomen /pelvis. Plan Plan: See assessment above.
[2021-04-20] MEDS: [UNRECOGNIZED DRUG - OTHER] IV SCH ×4 (13:56)
[2021-04-21] MEDS: CLINIMIX IV SCH ×15 (00:19→20:30)
[2021-04-21] MEDS: [UNRECOGNIZED DRUG - OTHER] IV SCH ×12 (00:19→10:35)
[2021-04-21] MEDS: TRACE ELEMENTS IV SCH ×12 (00:19→10:35)
[2021-04-21] MEDS: MVI IV SCH ×15 (00:19→20:30)
[2021-04-21] MEDS: DILAUDID INJ IVP PRN (04:30)
[2021-04-21 05:23] LABS: BASOPHILS % (AUTO) 0.2 % (0.2-1.0); EOSINOPHILS # (AUTO) 0.2 x10^3/uL (0.0-0.2); EOSINOPHILS % (AUTO) 0.8 % (0.9-2.9); HEMATOCRIT 23.6 % (36.0-47.0); HEMOGLOBIN 7.8 g/dL (12.0-16.0); LYMPHOCYTES # (AUTO) 1.8 X10^3/uL (1.3-2.9); LYMPHOCYTES % (AUTO) 6.3 % (21.0-51.0); MEAN CORPUSCULAR HEMOGLOBIN 29.7 pg (27.0-34.0); MEAN CORPUSCULAR HGB CONC 33.3 g/dL (33.0-35.0); MEAN CORPUSCULAR VOLUME 89.2 fL (80.0-100.0); MEAN PLATELET VOLUME 7.1 fL (7.4-11.0); MONOCYTES # (AUTO) 3.5 x10^3/uL (0.3-0.8); MONOCYTES % (AUTO) 12.4 % (0.0-13.0); NEUTROPHILS # (AUTO) 22.9 x10^3/uL (2.2-4.8); NEUTROPHILS % (AUTO) 80.3 % (42.0-75.0); PLATELET COUNT 463 X10^3/uL (150.0-450.0); RED BLOOD COUNT 2.64 X10^6/uL (3.5-5.4); RED CELL DISTRIBUTION WIDTH 15.4 % (11.6-16.5); WHITE BLOOD COUNT 28.5 X10^3/uL (3.6-10.0)
[2021-04-21 05:27] LABS: BLOOD UREA NITROGEN 26 mg/dL (7-18); CALCIUM 7.8 mg/dL (8.5-10.1); CARBON DIOXIDE 25.8 mmol/L (21-32); CHLORIDE 108 mmol/L (98-107); COR NA(FOR HYPERGLY) 142 mmol/L (136-145); CREATININE 0.62 mg/dL (0.55-1.02); MAGNESIUM 1.9 mg/dL (1.7-2.9); SODIUM 140 mmol/L (136-145); eGFR NON BLACK RACES > 60 (>60)
[2021-04-21 05:45] LABS: METAMYELOCYTES % 23; MYELOCYTES % 2; PLATELET MORPHOLOGY COMMENT NORMAL (NORMAL)
[2021-04-21] MEDS: FLAGYL IV PREMIX 500 MG BAG 500 MG/100 ML BAG IV SCH ×4 (06:18→21:30)
[2021-04-21] MEDS: LIBRIUM PO SCH ×3 (06:19→21:30)
--- NOTE | 2021-04-21 06:39 | RAD ---
HISTORYS/P LEAK OF ANASTAMOSISSTUDYCHEST, 1 [id number]/25/2021.TECHNIQUEAP view of the chestFINDINGSRight IJ central line in good position. The cardiac silhouette is stably enlarged. Mediastinal contours appear stable. Mildly worse appearance of bilateral mid to lower lung airspace opacities. Suspect small bilateral pleural effusions. No pneumothorax.IMPRESSIONMildly worse appearance of bilateral mid to lower lung airspace opacities may represent atelectasis or pneumonia. Suspect small pleural effusions.Electronically signed by: Cliff Seth (Apr 21, 2021 06:36:53)
[2021-04-21] MEDS: PROTONIX INJ 40 MG VIAL IVP SCH (09:23)
[2021-04-21] MEDS: NICOTINE PATCH TD SCH (09:25)
[2021-04-21] MEDS: LOVENOX INJ 40 MG SYR SC SCH (09:25)
[2021-04-21] MEDS: PULMICORT NEB TX 0.5 MG NEB SCH ×2 (09:25→21:33)
[2021-04-21] MEDS: DUONEB 0.5 MG/3 MG (3 mL) NEB SCH ×4 (09:25→21:34)
[2021-04-21] MEDS: INVANZ INJ 1 GM VIAL 1 GM in NS 100 ML IV + SPIKE MINIBAG* 100 ML IV SCH (09:27)
[2021-04-21] MEDS: ALBUMIN HUMAN 25%- 100 ML 100 ML IV SCH (10:32)
--- NOTE | 2021-04-21 11:32 | PCM.PROG ---
Progress Note Progress Note for Day of Date of Exam: 04/21/21 Subjective Subjective: Postoperative day 5 after laparotomy to deal with leaking colon anastomosis and washout of abdomen. Continues to improve. Alert and oriented but mildly tremulous. Less tachycardic. Taking PO liquids. On TPN. My biggest concern is her continued elevated white blood cell count.Chest x-ray showed bilateral atelectasis. I am concern about possible intra-abdominal abscess. Past Medical Family Social History Past Med/Fam/Surg Hx: No changes since H&P Allergies: Allergies acetaminophen [From [place]] Allergy (Verified 04/15/21 21:15) hydrocodone [From [place]] Allergy (Verified 04/15/21 21:15) penicillin G Allergy (Verified 04/15/21 21:15) Vital Signs and I&O's Vital Signs: Temperature 97.6 F Pulse Rate [Right] 105 Pulse Rate 109 Respiratory Rate 23 Blood Pressure [Right Arm] 100/65 Blood Pressure [Left Arm] 102/58 Blood Pressure 117/80 O2 Sat by Pulse Oximetry 100 Intake and Output: Intake & Output 04/18/21 04/19/21 04/20/21 04/21/21 23:59 23:59 23:59 23:59 Intake Total 3525 / 3525 3698 / 3698 3550 / 3550 769 / 769 Output Total 3130 / 3310 2980 / 2980 725 / 725 Balance 395 / 215 718 / 718 2825 / 2825 769 / 769 Physical Exam Oriented: Normal, Time, Person and Place Eyes: Normal Ear: Normal Nose: Normal Throat: Normal Respiratory: OTHER (tachypneic) Cardiovascular: Tachycardia (regular rate is 109) : Other (patient noted decrease in urine output) Auscultation: Bowel Sounds: Decreased Tenderness: Normal (non tender and not distended. Wound vacuum in place) Skin: Normal Musculoskeletal: Normal Mood Description: Calm Affect: Anxious Speech Pattern: Clear and Appropriate Laboratory and Diagnostics Result Diagrams: 04/21/21 04:26 04/21/21 04:26 Labs: 04/16/21 14:27 Abdomen Wound Gram Stain - Final 04/16/21 14:27 Abdomen Wound Culture - Preliminary 04/16/21 01:45 Blood Blood Culture - Preliminary 04/16/21 01:40 Blood Blood Culture - Preliminary Laboratory WBC 28.5 X10^3/uL (3.6-10.0) H 04/21/21 04:26 RBC 2.64 X10^6/uL (3.5-5.4) L 04/21/21 04:26 Hgb 7.8 g/dL (12.0-16.0) L 04/21/21 04:26 Hct 23.6 % (36.0-47.0) L 04/21/21 04:26 MCV 89.2 fL (80.0-100.0) 04/21/21 04:26 MCH 29.7 pg (27.0-34.0) 04/21/21 04:26 MCHC 33.3 g/dL (33.0-35.0) 04/21/21 04:26 RDW 15.4 % (11.6-16.5) 04/21/21 04:26 Plt Count 463 X10^3/uL (150.0-450.0) H 04/21/21 04:26 Plt Count Comment Increased (ADEQUATE) A 04/21/21 04:26 MPV 7.1 fL (7.4-11.0) L 04/21/21 04:26 Neut % (Auto) 80.3 % (42.0-75.0) H 04/21/21 04:26 Lymph % (Auto) 6.3 % (21.0-51.0) L 04/21/21 04:26 [place] % (Auto) 12.4 % (0.0-13.0) 04/21/21 04:26 Eos % (Auto) 0.8 % (0.9-2.9) L 04/21/21 04:26 Baso % (Auto) 0.2 % (0.2-1.0) 04/21/21 04:26 Neut # (Auto) 22.9 x10^3/uL (2.2-4.8) H 04/21/21 04:26 Lymph # (Auto) 1.8 X10^3/uL (1.3-2.9) 04/21/21 04:26 [place] # (Auto) 3.5 x10^3/uL (0.3-0.8) H 04/21/21 04:26 Eos # (Auto) 0.2 x10^3/uL (0.0-0.2) 04/21/21 04:26 Baso # (Auto) 0.0 X10^3/uL (0.0-0.1) 04/21/21 04:26 Absolute Nucleated RBC 0.9 /100WBC 04/21/21 04:26 Total Counted 100 04/21/21 04:26 Neutrophils % (Manual) 71 % (39-76) 04/21/21 04:26 Band Neutrophils % 5 % (0-10) 04/15/21 21:43 Lymphocytes % (Manual) 1 % (13-43) L 04/21/21 04:26 Monocytes % (Manual) 2 % (4-9) L 04/21/21 04:26 Eosinophils % (Manual) 1 % (0-6) 04/21/21 04:26 Metamyelocytes % 23 04/21/21 04:26 Myelocytes % 2 04/21/21 04:26 Plt Morphology Comment Normal (NORMAL) 04/21/21 04:26 RBC Morphology Normal (NORMAL) 04/21/21 04:26 Hypochromasia Slight A 04/20/21 04:25 Sodium 140 mmol/L (136-145) 04/21/21 04:26 Corrected Sodium 142 mmol/L (136-145) 04/21/21 04:26 Potassium 4.2 mmol/L (3.5-5.1) 04/21/21 04:26 Chloride 108 mmol/L (98-107) H 04/21/21 04:26 Carbon Dioxide 25.8 mmol/L (21-32) 04/21/21 04:26 BUN 26 mg/dL (7-18) H 04/21/21 04:26 Creatinine 0.62 mg/dL (0.55-1.02) 04/21/21 04:26 Est GFR (MDRD) Af Amer > 60 (>60) 04/21/21 04:26 Est GFR (MDRD) Non-Af > 60 (>60) 04/21/21 04:26 Glucose 183 mg/dL (65-99) H 04/21/21 04:26 POC Glucose (mg/dL) 168 mg/dL (65-99) H 04/21/21 11:24 Lactic Acid 1.3 mmol/L (0.4-2.0) 04/16/21 15:25 Calcium 7.8 mg/dL (8.5-10.1) L 04/21/21 04:26 Corrected Calcium 9.6 mg/dL (8.5-10.1) 04/20/21 04:25 Phosphorus 1.3 mg/dL (2.6-4.7) L 04/21/21 04:26 Magnesium 1.9 mg/dL (1.7-2.9) 04/21/21 04:26 Total Bilirubin 0.20 mg/dL (0.2-1.0) 04/20/21 04:25 AST 38 Units/L (15-37) H 04/20/21 04:25 ALT 33 Units/L (12-78) 04/20/21 04:25 Alkaline Phosphatase 187 Units/L (46-116) H 04/20/21 04:25 Total Protein 5.9 g/dL (6.4-8.2) L 04/20/21 04:25 Albumin 2.0 g/dL (3.4-5.0) L 04/20/21 04:25 Globulin 3.9 g/dL (2.5-4.5) 04/20/21 04:25 Albumin/Globulin Ratio 0.5 Ratio (1.1-2.1) L 04/20/21 04:25 Prealbumin 4.5 mg/dL (18-35.7) L 04/18/21 06:37 Triglycerides 189 mg/dL (0-150) H 04/20/21 04:25 Specimen Type Clean catch urine 04/15/21 21:39 Urine Color Dark yellow (YELLOW) 04/15/21 21:39 Urine Appearance Clear (CLEAR) 04/15/21 21:39 Urine pH 6.0 (5.0 - 8.0) 04/15/21 21:39 Ur Specific [place] 1.020 (1.000-1.030) 04/15/21 21:39 Urine Protein 1+ (NEGATIVE) 04/15/21 21:39 Urine Glucose (UA) Negative (NEGATIVE) 04/15/21 21:39 Urine Ketones 2+ (NEGATIVE) 04/15/21 21:39 Urine Occult Blood Negative (NEGATIVE) 04/15/21 21:39 Urine Nitrite Negative (NEGATIVE) 04/15/21 21:39 Urine Bilirubin Negative (NEGATIVE) 04/15/21 21:39 Urine Urobilinogen Normal (NORMAL) 04/15/21 21:39 Ur Leukocyte Esterase Negative (NEGATIVE) 04/15/21 21:39 Urine RBC None seen /HPF (0-3) 04/15/21 21:39 Urine WBC 0-2 /HPF (0-5) 04/15/21 21:39 Ur Squamous Epith Cells Rare /HPF (NEGATIVE) 04/15/21 21:39 Urine Bacteria Trace /HPF (NEGATIVE) 04/15/21 21:39 Ur Culture Indicated? No/not indicated 04/15/21 21:39 SARS-CoV-2 (PCR) Negative (NEGATIVE) 04/16/21 00:53 Influenza Type A (PCR) Negative (NEGATIVE) 04/16/21 00:53 Influenza Type B (PCR) Negative (NEGATIVE) 04/16/21 00:53 RSV (PCR) Negative (NEGATIVE) 04/16/21 00:53 Tissue Pathology To follow 04/16/21 14:27 Blood Type O NEGATIVE 04/16/21 13:56 Antibody Screen Negative 04/16/21 13:56 Crossmatch See Detail 04/16/21 13:56 Plan (1) Gastrointestinal anastomotic leak: Status: Acute Narrative Support Text: Plan CT of abdomen / pelvis with oral and IV contrast. Plan: as above (2) Adenocarcinoma, colon: Status: Acute Plan: Will plan adjuvant therapy when she is improved (3) Anuria: Status: Acute Narrative Support Text: resolved. (4) Acute hyperkalemia: Status: Acute Plan: resolved
[2021-04-21] MEDS ORDERED: NS 100 ML IV 100 ML ONE (13:17)
--- NOTE | 2021-04-21 19:13 | CT ---
HISTORYANASTOMOTIC LEAK, ANURIA, JEJUNITIS, S/P LEAK, S/P RESECTIONSTUDYCT abdomen pelvis with IV contrastCOMPARISONCT 04/15/2021TECHNIQUEMultiple axial images of the abdomen and pelvis were obtained from the lung bases to the pubic symphysis after the administration of IV contrast. 100 cc Omnipaque 350 IV contrast. Dose reduction techniques including Automated Exposure Control (AEC) and adjustment of mA and kV were utilized.FINDINGSThe visualized portions of the lung bases reveal moderate pleural effusions that are new since prior study. Heart is normal in size. Associated atelectasis is seen in both lung bases but there is abnormal ground-glass infiltrate in the left lingula that may be pneumonia.Likely fatty infiltration of the liver. Liver and spleen are normal in size.Gallbladder appears normal. No biliary ductal dilation.No pancreatic abnormality is seen.The adrenal glands appear normal.Kidneys are excreting contrast at time of imaging. No renal mass or hydronephrosis is seen. No ureterectasis or bladder abnormality is seen. Phleboliths are seen in the pelvis.Hemicolectomy. Right-sided ostomy. GI contrast reaches the ostomy. No leak of oral contrast is seen. Possible mild inflammation in the proximal jejunum. Wall thickness cannot be evaluated in the remaining sigmoid colon and descending colon. Old postoperative changes are seen in the stomach.No abnormalities are seen of the reproductive organs.Abdominal aorta is normal in size.Shotty likely reactive lymph nodes are seen in the abdomen and pelvis.Mild free air and fluid in the abdomen and pelvis is greatest in the right upper quadrant. Appearance is improved from prior exam. No discrete fluid collection to suggest an abscess is seen at this time.Bilateral L5 pars defects with minimal anterolisthesis of L5 on S1.IMPRESSIONNew moderate bilateral pleural effusions.Improving free air fluid in the abdomen and pelvis. No discrete fluid collection is seen.Possible mild inflammation of the jejunum and remaining colon probably secondary to the previous bowel perforation.Electronically signed by: Edu Adair (Apr 21, 2021 14:35:09)
[2021-04-21] MEDS: [UNRECOGNIZED DRUG - OTHER] IV SCH ×3 (20:30)
[2021-04-22] MEDS: DILAUDID INJ IVP PRN (04:43)
[2021-04-22] MEDS: LIBRIUM PO SCH ×3 (05:25→21:20)
[2021-04-22] MEDS: FLAGYL IV PREMIX 500 MG BAG 500 MG/100 ML BAG IV SCH ×3 (05:25→21:20)
[2021-04-22 05:34] LABS: BLOOD UREA NITROGEN 19 mg/dL (7-18); CALCIUM 7.7 mg/dL (8.5-10.1); CARBON DIOXIDE 24.3 mmol/L (21-32); CHLORIDE 110 mmol/L (98-107); CREATININE 0.53 mg/dL (0.55-1.02); SODIUM 143 mmol/L (136-145); eGFR NON BLACK RACES > 60 (>60)
[2021-04-22] MEDS: MVI IV SCH ×6 (06:09→14:12)
[2021-04-22] MEDS: [UNRECOGNIZED DRUG - OTHER] IV SCH ×6 (06:09→14:12)
[2021-04-22] MEDS: CLINIMIX IV SCH ×6 (06:09→14:12)
[2021-04-22] MEDS ORDERED: LASIX IVP ONE (08:35)
[2021-04-22 08:42] LABS: BASOPHILS # (AUTO) 0.1 X10^3/uL (0.0-0.1); BASOPHILS % (AUTO) 0.3 % (0.2-1.0); EOSINOPHILS # (AUTO) 0.5 x10^3/uL (0.0-0.2); EOSINOPHILS % (AUTO) 1.9 % (0.9-2.9); HEMATOCRIT 23.9 % (36.0-47.0); HEMOGLOBIN 7.9 g/dL (12.0-16.0); LYMPHOCYTES # (AUTO) 1.2 X10^3/uL (1.3-2.9); LYMPHOCYTES % (AUTO) 4.4 % (21.0-51.0); MEAN CORPUSCULAR HEMOGLOBIN 29.9 pg (27.0-34.0); MEAN CORPUSCULAR VOLUME 90.6 fL (80.0-100.0); MEAN PLATELET VOLUME 7.3 fL (7.4-11.0); MONOCYTES # (AUTO) 2.2 x10^3/uL (0.3-0.8); MONOCYTES % (AUTO) 8.2 % (0.0-13.0); NEUTROPHILS # (AUTO) 23.1 x10^3/uL (2.2-4.8); NEUTROPHILS % (AUTO) 85.2 % (42.0-75.0); PLATELET COUNT 472 X10^3/uL (150.0-450.0); RED BLOOD COUNT 2.64 X10^6/uL (3.5-5.4); RED CELL DISTRIBUTION WIDTH 15.5 % (11.6-16.5); WHITE BLOOD COUNT 27.1 X10^3/uL (3.6-10.0)
[2021-04-22 09:01] LABS: BAND NEUTROPHILS % 3 % (0-10)
[2021-04-22 09:02] LABS: METAMYELOCYTES % 4; PLATELET MORPHOLOGY COMMENT NORMAL (NORMAL)
[2021-04-22] MEDS: PULMICORT NEB TX 0.5 MG NEB SCH ×2 (09:21→20:00)
[2021-04-22] MEDS: DUONEB 0.5 MG/3 MG (3 mL) NEB SCH ×4 (09:21→20:00)
[2021-04-22] MEDS ORDERED: PULMICORT NEB TX 0.5 MG NEB ONE (09:32)
[2021-04-22] MEDS ORDERED: DUONEB 0.5 MG/3 MG (3 mL) NEB ONE (09:32)
[2021-04-22] MEDS: NICOTINE PATCH TD SCH (10:55)
[2021-04-22] MEDS: PROTONIX INJ 40 MG VIAL IVP SCH (10:55)
[2021-04-22] MEDS: INVANZ INJ 1 GM VIAL 1 GM in NS 100 ML IV + SPIKE MINIBAG* 100 ML IV SCH (10:58)
[2021-04-22] MEDS: ATIVAN INJ 2 MG VIAL IVP PRN (10:59)
[2021-04-22] MEDS: LOVENOX INJ 40 MG SYR SC SCH (11:04)
[2021-04-22] MEDS: ALBUMIN HUMAN 25%- 100 ML 100 ML IV SCH (14:09)
[2021-04-22] MEDS ORDERED: SALINE 3% 15 ML NEB TX NEB ONE (19:28)
[2021-04-23] MEDS: DILAUDID INJ IVP PRN ×2 (03:52→14:37)
[2021-04-23] MEDS: FLAGYL IV PREMIX 500 MG BAG 500 MG/100 ML BAG IV SCH ×3 (06:06→21:10)
[2021-04-23] MEDS: LIBRIUM PO SCH ×3 (06:07→21:09)
[2021-04-23 06:11] LABS: BASOPHILS # (AUTO) 0.1 X10^3/uL (0.0-0.1); BASOPHILS % (AUTO) 0.4 % (0.2-1.0); EOSINOPHILS # (AUTO) 0.6 x10^3/uL (0.0-0.2); EOSINOPHILS % (AUTO) 3.4 % (0.9-2.9); HEMATOCRIT 22.7 % (36.0-47.0); HEMOGLOBIN 7.3 g/dL (12.0-16.0); LYMPHOCYTES # (AUTO) 0.8 X10^3/uL (1.3-2.9); LYMPHOCYTES % (AUTO) 4.4 % (21.0-51.0); MEAN CORPUSCULAR HEMOGLOBIN 29.4 pg (27.0-34.0); MEAN CORPUSCULAR HGB CONC 32.3 g/dL (33.0-35.0); MEAN CORPUSCULAR VOLUME 91.1 fL (80.0-100.0); MEAN PLATELET VOLUME 6.9 fL (7.4-11.0); MONOCYTES # (AUTO) 1.5 x10^3/uL (0.3-0.8); MONOCYTES % (AUTO) 8.9 % (0.0-13.0); NEUTROPHILS # (AUTO) 14.4 x10^3/uL (2.2-4.8); NEUTROPHILS % (AUTO) 82.9 % (42.0-75.0); PLATELET COUNT 455 X10^3/uL (150.0-450.0); RED BLOOD COUNT 2.49 X10^6/uL (3.5-5.4); RED CELL DISTRIBUTION WIDTH 15.9 % (11.6-16.5); WHITE BLOOD COUNT 17.3 X10^3/uL (3.6-10.0)
[2021-04-23 06:42] LABS: BLOOD UREA NITROGEN 18 mg/dL (7-18); CALCIUM 7.2 mg/dL (8.5-10.1); CARBON DIOXIDE 24.4 mmol/L (21-32); CHLORIDE 109 mmol/L (98-107); COR NA(FOR HYPERGLY) 145 mmol/L (136-145); CREATININE 0.71 mg/dL (0.55-1.02); SODIUM 143 mmol/L (136-145); eGFR NON BLACK RACES > 60 (>60)
[2021-04-23 06:43] LABS: BAND NEUTROPHILS % 4 % (0-10); METAMYELOCYTES % 4; PLATELET MORPHOLOGY COMMENT NORMAL (NORMAL)
--- NOTE | 2021-04-23 07:29 | NOTE.SOAP ---
Soap Note Note for Day of Date of Exam: 04/22/21 Subjective Data Subjective Data: POD # 5 after laparotomy and resection leaking colon anastamosis with end colostomy. Taking po.On TPN. Wound looks good with wound vacuum in place . Afebrile but with persistent elevated WBC count . CXR show small b/l effusions. CT done of abdomen showing no abscess. Colostomy pink and functioning . Objective Data Temperature: 98.5 F Pulse Rate: 94 Respiratory Rate: 24 O2 Sat by Pulse Oximetry: 100 Objective Data: Abdomen soft. Wound vacuum in place . Taking po Still weak. A&Ox3 Assessment Assessment: Continues to improve . WBC elevated but no obvious source. Cultures negative . Has refused group home home care. Will plan for discharge soon with home health for ostomy care , wound vacuum and physical therapy. Plan Plan: see assessment above.
[2021-04-23] MEDS: ALBUMIN HUMAN 25%- 100 ML 100 ML IV SCH (08:17)
[2021-04-23] MEDS: PROTONIX INJ 40 MG VIAL IVP SCH (08:18)
[2021-04-23] MEDS: NICOTINE PATCH TD SCH (08:18)
[2021-04-23] MEDS: LOVENOX INJ 40 MG SYR SC SCH (08:20)
[2021-04-23] MEDS ORDERED: NS 100 ML IV 100 ML ONE (08:24)
[2021-04-23] MEDS: DUONEB 0.5 MG/3 MG (3 mL) NEB SCH ×4 (08:51→21:15)
[2021-04-23] MEDS: PULMICORT NEB TX 0.5 MG NEB SCH ×2 (08:51→21:15)
[2021-04-23] MEDS: INVANZ INJ 1 GM VIAL 1 GM in NS 100 ML IV + SPIKE MINIBAG* 100 ML IV SCH (10:00)
[2021-04-23 11:50] LABS: TRIGLYCERIDES 115 mg/dL (0-150)
--- NOTE | 2021-04-23 12:05 | NOTE.SOAP ---
Soap Note Note for Day of Date of Exam: 04/23/21 Subjective Data Subjective Data: A&O x 3 , very weak, has not been getting OOB with rehab. Taking po. Afebrile. Eating better , Still on TPN. Discussed with patient and her and they have changed their minds and agreed to SNF for shot term. Objective Data Pulse Rate: 100 Respiratory Rate: 28 Blood Pressure: 114/62 O2 Sat by Pulse Oximetry: 100 Objective Data: Abdomen soft, wound vacuum in place. To change wound vacuum later today. WBC decrease to 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 Improving but very weak Plan Plan: Change wound vacuum and steri- strip wound partially together. Await SNF placement . D/C TPN. PT to continue
--- NOTE | 2021-04-23 13:48 | RAD ---
CHEST, 1 VIEWHISTORY: ANASTOMOTIC LEAK, LEUKOCYTOSIS, ANURIA, JEJUNITISStudy: Single view of the chest.Comparison:April 21, 2021Findings:The cardiomediastinal silhouette is normal. No change in the appearance of bilateral effusions. No change in positioning of cardiopulmonary support devices. Osseous structures demonstrate no acute abnormality.IMPRESSION:1. No change from prior.Electronically signed by: DAVIDE HOOVER (Apr 23, 2021 13:46:15)
[2021-04-23] MEDS: LASIX IVP SCH (20:00)
[2021-04-23] MEDS: K-DUR TAB 20 MEQ PO SCH (21:09)
--- NOTE | 2021-04-24 05:51 | RAD ---
HISTORYFLUID OVERLOAD, PLEURAL EFFUSIONSTUDYCHEST, 1 [id number] trachea is midline. Right IJ central line tip unchanged in the SVC. Is the cardiac silhouette is unremarkable. Bilateral pleural effusions, right greater than left unchanged. No pneumothorax.. The bony thorax is unremarkable.IMPRESSIONStable portable chestElectronically signed by: Tremaine Reyes (Apr 24, 2021 05:49:23)
[2021-04-24 06:13] LABS: BASOPHILS % (AUTO) 0.2 % (0.2-1.0); EOSINOPHILS # (AUTO) 0.8 x10^3/uL (0.0-0.2); EOSINOPHILS % (AUTO) 4.3 % (0.9-2.9); HEMATOCRIT 24.6 % (36.0-47.0); HEMOGLOBIN 8.2 g/dL (12.0-16.0); LYMPHOCYTES # (AUTO) 0.8 X10^3/uL (1.3-2.9); LYMPHOCYTES % (AUTO) 4.2 % (21.0-51.0); MEAN CORPUSCULAR HEMOGLOBIN 29.8 pg (27.0-34.0); MEAN CORPUSCULAR HGB CONC 33.3 g/dL (33.0-35.0); MEAN CORPUSCULAR VOLUME 89.6 fL (80.0-100.0); MEAN PLATELET VOLUME 6.9 fL (7.4-11.0); MONOCYTES # (AUTO) 1.5 x10^3/uL (0.3-0.8); MONOCYTES % (AUTO) 7.9 % (0.0-13.0); NEUTROPHILS # (AUTO) 15.8 x10^3/uL (2.2-4.8); NEUTROPHILS % (AUTO) 83.4 % (42.0-75.0); PLATELET COUNT 480 X10^3/uL (150.0-450.0); RED BLOOD COUNT 2.74 X10^6/uL (3.5-5.4); RED CELL DISTRIBUTION WIDTH 15.8 % (11.6-16.5)
[2021-04-24 06:16] LABS: PREALBUMIN 14.4 mg/dL (18-35.7)
[2021-04-24 06:26] LABS: ALANINE AMINOTRANSFERASE 58 Units/L (12-78); ALBUMIN 2.6 g/dL (3.4-5.0); ALKALINE PHOSPHATASE 126 Units/L (46-116); ASPARTATE AMINO TRANSFERASE 28 Units/L (15-37); BLOOD UREA NITROGEN 12 mg/dL (7-18); CALCIUM 7.6 mg/dL (8.5-10.1); CARBON DIOXIDE 25.9 mmol/L (21-32); CHLORIDE 110 mmol/L (98-107); COR CA(FOR HYPOALB) 8.7 mg/dL (8.5-10.1); CREATININE 0.59 mg/dL (0.55-1.02); MAGNESIUM 1.7 mg/dL (1.7-2.9); SODIUM 146 mmol/L (136-145); TOTAL PROTEIN 5.8 g/dL (6.4-8.2); eGFR NON BLACK RACES > 60 (>60)
[2021-04-24] MEDS: LIBRIUM PO SCH ×3 (06:29→21:04)
[2021-04-24] MEDS: FLAGYL IV PREMIX 500 MG BAG 500 MG/100 ML BAG IV SCH ×3 (06:29→21:04)
[2021-04-24] MEDS ORDERED: KLOR-CON PO PRN ×2 (07:52→08:42)
[2021-04-24] MEDS ORDERED: K-RIDER 10 MEQ/NS 100 ML 10 MEQ/100 ML BAG IV PRN ×2 (07:52→08:42)
[2021-04-24] MEDS ORDERED: K-DUR TAB 20 MEQ PO PRN (07:52)
[2021-04-24] MEDS ORDERED: POTASSIUM CHLORIDE LIQ 20 MEQ UDC PO PRN ×2 (07:52→08:42)
[2021-04-24] MEDS ORDERED: POTASSIUM CHL 40 MEQ/NS 0.45% 500 ML IV PRN ×2 (07:52→08:42)
[2021-04-24] MEDS ORDERED: MICRO K EXTEN CAP 10 MEQ PO PRN ×2 (07:52→08:42)
[2021-04-24] MEDS ORDERED: POTASSIUM CHL 60 MEQ/NS 0.45% 500 ML IV PRN ×2 (07:52→08:42)
[2021-04-24] MEDS: PULMICORT NEB TX 0.5 MG NEB SCH ×2 (09:02→21:00)
[2021-04-24] MEDS: DUONEB 0.5 MG/3 MG (3 mL) NEB SCH ×4 (09:02→21:00)
[2021-04-24] MEDS: K-DUR TAB 20 MEQ PO SCH (09:34)
[2021-04-24] MEDS: PROTONIX TAB 40 MG PO SCH (09:34)
[2021-04-24] MEDS: LOVENOX INJ 40 MG SYR SC SCH (09:35)
[2021-04-24] MEDS: NICOTINE PATCH TD SCH (09:35)
[2021-04-24] MEDS: INVANZ INJ 1 GM VIAL 1 GM in NS 100 ML IV + SPIKE MINIBAG* 100 ML IV SCH (09:35)
[2021-04-24] MEDS: LASIX IVP SCH (10:23)
[2021-04-24] MEDS: DILAUDID INJ IVP PRN (16:02)
[2021-04-25] MEDS: FLAGYL IV PREMIX 500 MG BAG 500 MG/100 ML BAG IV SCH ×3 (05:45→21:35)
[2021-04-25] MEDS: LIBRIUM PO SCH ×3 (05:46→22:13)
[2021-04-25] MEDS: PULMICORT NEB TX 0.5 MG NEB SCH ×2 (08:33→20:43)
[2021-04-25] MEDS: DUONEB 0.5 MG/3 MG (3 mL) NEB SCH ×4 (08:33→20:43)
[2021-04-25] MEDS: INVANZ INJ 1 GM VIAL 1 GM in NS 100 ML IV + SPIKE MINIBAG* 100 ML IV SCH (09:33)
[2021-04-25] MEDS: PROTONIX TAB 40 MG PO SCH (09:34)
[2021-04-25] MEDS: ATIVAN INJ 2 MG VIAL IVP PRN (09:41)
[2021-04-25] MEDS: LOVENOX INJ 40 MG SYR SC SCH (09:41)
[2021-04-25] MEDS: DILAUDID INJ IVP PRN ×2 (09:53→22:16)
--- NOTE | 2021-04-25 10:20 | NOTE.SOAP ---
Soap Note Note for Day of Date of Exam: 04/24/21 Subjective Data Subjective Data: This note is for my evaluation 04/24/2021. Slowly improving. Drinking well , poor po intake of food. TPN has been discontinued . Objective Data Temperature: 97.5 F Pulse Rate: 106 Respiratory Rate: 23 Blood Pressure: 110/73 O2 Sat by Pulse Oximetry: 97 Objective Data: GAining strength. as above, superior and inferior part of incision steri-strippped closed , Mid portion of incision 5x3x1 cm and wound vacuum placed. Colostomy functioning well. Assessment Assessment: S/P laparotomy for resection of leaking colon anastamosis. Doing well Plan Plan: Awaiting placement , Will need adjuvant chemotherapy in the future.
[2021-04-25] MEDS: NICOTINE PATCH TD SCH (11:13)
--- NOTE | 2021-04-25 12:54 | PCM.PROG ---
Progress Note Progress Note for Day of Date of Exam: 04/25/21 Subjective Subjective: Pt is POD#9 laparotomy for resection of leaking colon anastomosis. Pt is slowly improving, gaining strength. Wound vac changed yesterday. Currently awaiting placement. Continue to monitor and follow up labs in the morning. Past Medical Family Social History Past Med/Fam/Surg Hx: No changes since H&P Allergies: Allergies acetaminophen [From [place]] Allergy (Verified 04/15/21 21:15) hydrocodone [From [place]] Allergy (Verified 04/15/21 21:15) penicillin G Allergy (Verified 04/15/21 21:15) Review of Systems ROS: No change since H&P Vital Signs and I&O's Vital Signs: Temperature 97.5 F Pulse Rate [Right] 105 Pulse Rate 106 Respiratory Rate 18 Blood Pressure [Right Arm] 100/65 Blood Pressure [Left Arm] 102/58 Blood Pressure 110/73 O2 Sat by Pulse Oximetry 97 Intake and Output: Intake & Output 04/22/21 04/23/21 04/24/21 04/25/21 23:59 23:59 23:59 23:59 Intake Total 2389 / 2389 1600 / 1600 815 / 815 650 / 650 Output Total 3200 / 3200 Balance -811 / -811 1600 / 1600 815 / 815 650 / 650 Physical Exam Oriented: Normal, Time, Person and Place Eyes: Normal Ear: Normal Nose: Normal Throat: Normal Respiratory: Normal Cardiovascular: Normal : Normal Auscultation: Bowel Sounds: Decreased Tenderness: Normal (non tender and not distended. Wound vacuum in place) Skin: Normal Musculoskeletal: Normal Mood Description: Calm Affect: Anxious Speech Pattern: Clear and Appropriate Laboratory and Diagnostics Result Diagrams: 04/24/21 05:23 04/24/21 05:23 Labs: 04/16/21 14:27 Abdomen Wound Gram Stain - Final 04/16/21 14:27 Abdomen Wound Culture - Preliminary 04/16/21 01:40 Blood Blood Culture - Final 04/16/21 01:45 Blood Blood Culture - Final Laboratory WBC 19.0 X10^3/uL (3.6-10.0) H 04/24/21 05:23 RBC 2.74 X10^6/uL (3.5-5.4) L 04/24/21 05:23 Hgb 8.2 g/dL (12.0-16.0) L 04/24/21 05:23 Hct 24.6 % (36.0-47.0) L 04/24/21 05:23 MCV 89.6 fL (80.0-100.0) 04/24/21 05:23 MCH 29.8 pg (27.0-34.0) 04/24/21 05:23 MCHC 33.3 g/dL (33.0-35.0) 04/24/21 05:23 RDW 15.8 % (11.6-16.5) 04/24/21 05:23 Plt Count 480 X10^3/uL (150.0-450.0) H 04/24/21 05:23 Plt Count Comment Increased (ADEQUATE) A 04/23/21 05:42 MPV 6.9 fL (7.4-11.0) L 04/24/21 05:23 Neut % (Auto) 83.4 % (42.0-75.0) H 04/24/21 05:23 Lymph % (Auto) 4.2 % (21.0-51.0) L 04/24/21 05:23 [place] % (Auto) 7.9 % (0.0-13.0) 04/24/21 05:23 Eos % (Auto) 4.3 % (0.9-2.9) H 04/24/21 05:23 Baso % (Auto) 0.2 % (0.2-1.0) 04/24/21 05:23 Neut # (Auto) 15.8 x10^3/uL (2.2-4.8) H 04/24/21 05:23 Lymph # (Auto) 0.8 X10^3/uL (1.3-2.9) L 04/24/21 05:23 [place] # (Auto) 1.5 x10^3/uL (0.3-0.8) H 04/24/21 05:23 Eos # (Auto) 0.8 x10^3/uL (0.0-0.2) H 04/24/21 05:23 Baso # (Auto) 0.0 X10^3/uL (0.0-0.1) 04/24/21 05:23 Absolute Nucleated RBC 0.0 /100WBC 04/24/21 05:23 Total Counted 100 04/23/21 05:42 Neutrophils % (Manual) 73 % (39-76) 04/23/21 05:42 Band Neutrophils % 4 % (0-10) 04/23/21 05:42 Lymphocytes % (Manual) 6 % (13-43) L 04/23/21 05:42 Monocytes % (Manual) 10 % (4-9) H 04/23/21 05:42 Eosinophils % (Manual) 3 % (0-6) 04/23/21 05:42 Metamyelocytes % 4 04/23/21 05:42 Myelocytes % 2 04/21/21 04:26 Plt Morphology Comment Normal (NORMAL) 04/23/21 05:42 RBC Morphology Normal (NORMAL) 04/23/21 05:42 Hypochromasia Slight A 04/20/21 04:25 Sodium 146 mmol/L (136-145) H 04/24/21 05:23 Corrected Sodium TNP 04/24/21 05:23 Potassium 3.2 mmol/L (3.5-5.1) L 04/24/21 05:23 Chloride 110 mmol/L (98-107) H 04/24/21 05:23 Carbon Dioxide 25.9 mmol/L (21-32) 04/24/21 05:23 BUN 12 mg/dL (7-18) 04/24/21 05:23 Creatinine 0.59 mg/dL (0.55-1.02) 04/24/21 05:23 Est GFR (MDRD) Af Amer > 60 (>60) 04/24/21 05:23 Est GFR (MDRD) Non-Af > 60 (>60) 04/24/21 05:23 Glucose 97 mg/dL (65-99) 04/24/21 05:23 POC Glucose (mg/dL) 98 mg/dL (65-99) 04/25/21 11:35 Lactic Acid 1.3 mmol/L (0.4-2.0) 04/16/21 15:25 Calcium 7.6 mg/dL (8.5-10.1) L 04/24/21 05:23 Corrected Calcium 8.7 mg/dL (8.5-10.1) 04/24/21 05:23 Phosphorus 2.4 mg/dL (2.6-4.7) L 04/24/21 05:23 Magnesium 1.7 mg/dL (1.7-2.9) 04/24/21 05:23 Total Bilirubin 0.40 mg/dL (0.2-1.0) 04/24/21 05:23 AST 28 Units/L (15-37) 04/24/21 05:23 ALT 58 Units/L (12-78) 04/24/21 05:23 Alkaline Phosphatase 126 Units/L (46-116) H 04/24/21 05:23 Total Protein 5.8 g/dL (6.4-8.2) L 04/24/21 05:23 Albumin 2.6 g/dL (3.4-5.0) L 04/24/21 05:23 Globulin 3.2 g/dL (2.5-4.5) 04/24/21 05:23 Albumin/Globulin Ratio 0.8 Ratio (1.1-2.1) L 04/24/21 05:23 Prealbumin 14.4 mg/dL (18-35.7) L 04/24/21 05:23 Triglycerides 115 mg/dL (0-150) 04/23/21 05:42 Specimen Type Clean catch urine 04/15/21 21:39 Urine Color Dark yellow (YELLOW) 04/15/21 21:39 Urine Appearance Clear (CLEAR) 04/15/21 21:39 Urine pH 6.0 (5.0 - 8.0) 04/15/21 21:39 Ur Specific [place] 1.020 (1.000-1.030) 04/15/21 21:39 Urine Protein 1+ (NEGATIVE) 04/15/21 21:39 Urine Glucose (UA) Negative (NEGATIVE) 04/15/21 21:39 Urine Ketones 2+ (NEGATIVE) 04/15/21 21:39 Urine Occult Blood Negative (NEGATIVE) 04/15/21 21:39 Urine Nitrite Negative (NEGATIVE) 04/15/21 21:39 Urine Bilirubin Negative (NEGATIVE) 04/15/21 21:39 Urine Urobilinogen Normal (NORMAL) 04/15/21 21:39 Ur Leukocyte Esterase Negative (NEGATIVE) 04/15/21 21:39 Urine RBC None seen /HPF (0-3) 04/15/21 21:39 Urine WBC 0-2 /HPF (0-5) 04/15/21 21:39 Ur Squamous Epith Cells Rare /HPF (NEGATIVE) 04/15/21 21:39 Urine Bacteria Trace /HPF (NEGATIVE) 04/15/21 21:39 Ur Culture Indicated? No/not indicated 04/15/21 21:39 SARS-CoV-2 (PCR) Negative (NEGATIVE) 04/16/21 00:53 Influenza Type A (PCR) Negative (NEGATIVE) 04/16/21 00:53 Influenza Type B (PCR) Negative (NEGATIVE) 04/16/21 00:53 RSV (PCR) Negative (NEGATIVE) 04/16/21 00:53 Tissue Pathology To follow 04/16/21 14:27 Blood Type O NEGATIVE 04/16/21 13:56 Antibody Screen Negative 04/16/21 13:56 Crossmatch See Detail 04/16/21 13:56 Plan (1) Gastrointestinal anastomotic leak: Status: Acute Plan: as above (2) Adenocarcinoma, colon: Status: Acute Plan: Will plan adjuvant therapy when she is improved (3) Anuria: Status: Acute (4) Acute hyperkalemia: Status: Acute Plan: resolved
[2021-04-25] MEDS ORDERED: NS 100 ML IV 100 ML ONE (14:58)
--- NOTE | 2021-04-25 23:36 | NOTE.SOAP ---
Soap Note Note for Day of Date of Exam: 04/25/21 Subjective Data Subjective Data: This patient is status post composite resection of the adenocarcinoma of the transverse colon invading the antrum of the stomach complicated by a leak of the colon anastomosis 2 weeks post procedure. Required laparotomy with resection of the leak of the transverse colon with end colostomy. History of significant tobacco abuse and alcohol abuse. Has done well. Initially was on TPN which is now discontinued. Increasing PO intake of food and liquids. Good colostomy output. Wound vacuum still in place of the abdominal wound after stairs tripping the superior and inferior aspect of the wound and continuing going back to the midportion measuring 4 x 2 x 1 cm. The day had noted some purulent drainage from the superior aspect of the wound. Continues on IV antibiotics. Objective Data Temperature: 98.5 F Pulse Rate: 113 Respiratory Rate: 18 Objective Data: Wound as described above. Patient remains weak and has not been participating in walking. She is receiving physical therapy. Assessment Assessment: Status post resection of transverse colon adenocarcinoma and baiting the stomach with antrectomy and gastrojejunostomy. Making slow improvement. Patient would benefit from longterm facility but I doubt that will be approved by her insurance carrier. Plan Plan: Continue wound care. Continued physical therapy. Will plan discharge with home health when she is stronger.
[2021-04-26] MEDS: FLAGYL IV PREMIX 500 MG BAG 500 MG/100 ML BAG IV SCH ×3 (05:05→21:16)
[2021-04-26] MEDS: LIBRIUM PO SCH ×3 (05:06→22:02)
[2021-04-26 06:01] LABS: BASOPHILS # (AUTO) 0.1 X10^3/uL (0.0-0.1); BASOPHILS % (AUTO) 0.3 % (0.2-1.0); EOSINOPHILS # (AUTO) 0.6 x10^3/uL (0.0-0.2); EOSINOPHILS % (AUTO) 3.8 % (0.9-2.9); HEMATOCRIT 24.6 % (36.0-47.0); HEMOGLOBIN 8.2 g/dL (12.0-16.0); LYMPHOCYTES % (AUTO) 6.2 % (21.0-51.0); MEAN CORPUSCULAR HEMOGLOBIN 29.8 pg (27.0-34.0); MEAN CORPUSCULAR HGB CONC 33.5 g/dL (33.0-35.0); MEAN CORPUSCULAR VOLUME 88.9 fL (80.0-100.0); MEAN PLATELET VOLUME 6.8 fL (7.4-11.0); MONOCYTES # (AUTO) 1.2 x10^3/uL (0.3-0.8); MONOCYTES % (AUTO) 7.2 % (0.0-13.0); NEUTROPHILS # (AUTO) 13.6 x10^3/uL (2.2-4.8); NEUTROPHILS % (AUTO) 82.5 % (42.0-75.0); PLATELET COUNT 445 X10^3/uL (150.0-450.0); RED BLOOD COUNT 2.76 X10^6/uL (3.5-5.4); RED CELL DISTRIBUTION WIDTH 15.9 % (11.6-16.5); WHITE BLOOD COUNT 16.5 X10^3/uL (3.6-10.0)
[2021-04-26 06:15] LABS: ALANINE AMINOTRANSFERASE 29 Units/L (12-78); ALBUMIN 2.2 g/dL (3.4-5.0); ALKALINE PHOSPHATASE 89 Units/L (46-116); ASPARTATE AMINO TRANSFERASE 12 Units/L (15-37); BLOOD UREA NITROGEN 9 mg/dL (7-18); CALCIUM 7.3 mg/dL (8.5-10.1); CARBON DIOXIDE 27.5 mmol/L (21-32); CHLORIDE 108 mmol/L (98-107); COR CA(FOR HYPOALB) 8.7 mg/dL (8.5-10.1); CREATININE 0.58 mg/dL (0.55-1.02); SODIUM 144 mmol/L (136-145); TOTAL PROTEIN 5.7 g/dL (6.4-8.2); eGFR NON BLACK RACES > 60 (>60)
[2021-04-26] MEDS: DILAUDID INJ IVP PRN ×2 (06:19→21:14)
[2021-04-26] MEDS: INVANZ INJ 1 GM VIAL 1 GM in NS 100 ML IV + SPIKE MINIBAG* 100 ML IV SCH (08:47)
[2021-04-26] MEDS: LOVENOX INJ 40 MG SYR SC SCH (08:47)
[2021-04-26] MEDS: NICOTINE PATCH TD SCH (08:48)
[2021-04-26] MEDS ORDERED: NS 100 ML IV 100 ML ONE (08:49)
[2021-04-26] MEDS: PROTONIX TAB 40 MG PO SCH (08:50)
[2021-04-26] MEDS: K-DUR TAB 20 MEQ PO PRN ×2 (08:50→14:56)
[2021-04-26] MEDS: PULMICORT NEB TX 0.5 MG NEB SCH ×2 (09:15→21:43)
[2021-04-26] MEDS: DUONEB 0.5 MG/3 MG (3 mL) NEB SCH ×4 (09:15→21:43)
--- NOTE | 2021-04-26 11:33 | PCM.PROG ---
Progress Note Progress Note for Day of Date of Exam: 04/26/21 Subjective Subjective: Pt is POD#10 laparotomy for resection of leaking colon anastomosis. Pt is gradually improving. Pt has colostomy and wound vac. Labs: Wbc 16.5, Hgb 8.2, Plt 445, Na 144, K 2.9, Creatinine 0.58, Glucose 84. Continue wound care, IV antibiotics Ertapenem and Flagyl, replete potassium per protocol, Physical therapy. Anticipate discharge home with home health when appropriate. Past Medical Family Social History Past Med/Fam/Surg Hx: No changes since H&P Allergies: Allergies acetaminophen [From [place]] Allergy (Verified 04/15/21 21:15) hydrocodone [From [place]] Allergy (Verified 04/15/21 21:15) penicillin G Allergy (Verified 04/15/21 21:15) Review of Systems ROS: No change since H&P Vital Signs and I&O's Vital Signs: Temperature 98.3 F Pulse Rate [Right] 105 Pulse Rate 107 Respiratory Rate 17 Blood Pressure [Right Arm] 100/65 Blood Pressure [Left Arm] 102/58 Blood Pressure 112/71 O2 Sat by Pulse Oximetry 98 Intake and Output: Intake & Output 04/23/21 04/24/21 04/25/21 04/26/21 23:59 23:59 23:59 23:59 Intake Total 1600 / 1600 815 / 815 2600 / 2600 753 / 753 Output Total 600 / 600 Balance 1600 / 1600 815 / 815 2600 / 2600 153 / 153 Physical Exam Oriented: Normal, Time, Person and Place Eyes: Normal Ear: Normal Nose: Normal Throat: Normal Respiratory: Normal Cardiovascular: Normal : Normal Auscultation: Bowel Sounds: Decreased Tenderness: Normal (non tender and not distended. Wound vacuum in place) Skin: Normal Musculoskeletal: Normal Mood Description: Calm Affect: Anxious Speech Pattern: Clear and Appropriate Laboratory and Diagnostics Result Diagrams: 04/26/21 05:26 04/26/21 05:26 Labs: 04/16/21 14:27 Abdomen Wound Gram Stain - Final 04/16/21 14:27 Abdomen Wound Culture - Preliminary 04/16/21 01:40 Blood Blood Culture - Final 04/16/21 01:45 Blood Blood Culture - Final Laboratory WBC 16.5 X10^3/uL (3.6-10.0) H 04/26/21 05:26 RBC 2.76 X10^6/uL (3.5-5.4) L 04/26/21 05:26 Hgb 8.2 g/dL (12.0-16.0) L 04/26/21 05:26 Hct 24.6 % (36.0-47.0) L 04/26/21 05:26 MCV 88.9 fL (80.0-100.0) 04/26/21 05:26 MCH 29.8 pg (27.0-34.0) 04/26/21 05:26 MCHC 33.5 g/dL (33.0-35.0) 04/26/21 05:26 RDW 15.9 % (11.6-16.5) 04/26/21 05:26 Plt Count 445 X10^3/uL (150.0-450.0) 04/26/21 05:26 Plt Count Comment Increased (ADEQUATE) A 04/23/21 05:42 MPV 6.8 fL (7.4-11.0) L 04/26/21 05:26 Neut % (Auto) 82.5 % (42.0-75.0) H 04/26/21 05:26 Lymph % (Auto) 6.2 % (21.0-51.0) L 04/26/21 05:26 [place] % (Auto) 7.2 % (0.0-13.0) 04/26/21 05:26 Eos % (Auto) 3.8 % (0.9-2.9) H 04/26/21 05:26 Baso % (Auto) 0.3 % (0.2-1.0) 04/26/21 05:26 Neut # (Auto) 13.6 x10^3/uL (2.2-4.8) H 04/26/21 05:26 Lymph # (Auto) 1.0 X10^3/uL (1.3-2.9) L 04/26/21 05:26 [place] # (Auto) 1.2 x10^3/uL (0.3-0.8) H 04/26/21 05:26 Eos # (Auto) 0.6 x10^3/uL (0.0-0.2) H 04/26/21 05:26 Baso # (Auto) 0.1 X10^3/uL (0.0-0.1) 04/26/21 05:26 Absolute Nucleated RBC 0.0 /100WBC 04/26/21 05:26 Total Counted 100 04/23/21 05:42 Neutrophils % (Manual) 73 % (39-76) 04/23/21 05:42 Band Neutrophils % 4 % (0-10) 04/23/21 05:42 Lymphocytes % (Manual) 6 % (13-43) L 04/23/21 05:42 Monocytes % (Manual) 10 % (4-9) H 04/23/21 05:42 Eosinophils % (Manual) 3 % (0-6) 04/23/21 05:42 Metamyelocytes % 4 04/23/21 05:42 Myelocytes % 2 04/21/21 04:26 Plt Morphology Comment Normal (NORMAL) 04/23/21 05:42 RBC Morphology Normal (NORMAL) 04/23/21 05:42 Hypochromasia Slight A 04/20/21 04:25 Sodium 144 mmol/L (136-145) 04/26/21 05:26 Corrected Sodium TNP 04/26/21 05:26 Potassium 2.9 mmol/L (3.5-5.1) L* 04/26/21 05:26 Chloride 108 mmol/L (98-107) H 04/26/21 05:26 Carbon Dioxide 27.5 mmol/L (21-32) 04/26/21 05:26 BUN 9 mg/dL (7-18) 04/26/21 05:26 Creatinine 0.58 mg/dL (0.55-1.02) 04/26/21 05:26 Est GFR (MDRD) Af Amer > 60 (>60) 04/26/21 05:26 Est GFR (MDRD) Non-Af > 60 (>60) 04/26/21 05:26 Glucose 84 mg/dL (65-99) 04/26/21 05:26 POC Glucose (mg/dL) 75 mg/dL (65-99) 04/26/21 05:59 Lactic Acid 1.3 mmol/L (0.4-2.0) 04/16/21 15:25 Calcium 7.3 mg/dL (8.5-10.1) L 04/26/21 05:26 Corrected Calcium 8.7 mg/dL (8.5-10.1) 04/26/21 05:26 Phosphorus 2.4 mg/dL (2.6-4.7) L 04/24/21 05:23 Magnesium 1.5 mg/dL (1.7-2.9) L 04/26/21 05:46 Total Bilirubin 0.40 mg/dL (0.2-1.0) 04/26/21 05:26 AST 12 Units/L (15-37) L 04/26/21 05:26 ALT 29 Units/L (12-78) 04/26/21 05:26 Alkaline Phosphatase 89 Units/L (46-116) 04/26/21 05:26 Total Protein 5.7 g/dL (6.4-8.2) L 04/26/21 05:26 Albumin 2.2 g/dL (3.4-5.0) L 04/26/21 05:26 Globulin 3.5 g/dL (2.5-4.5) 04/26/21 05:26 Albumin/Globulin Ratio 0.6 Ratio (1.1-2.1) L 04/26/21 05:26 Prealbumin 14.4 mg/dL (18-35.7) L 04/24/21 05:23 Triglycerides 115 mg/dL (0-150) 04/23/21 05:42 Specimen Type Clean catch urine 04/15/21 21:39 Urine Color Dark yellow (YELLOW) 04/15/21 21:39 Urine Appearance Clear (CLEAR) 04/15/21 21:39 Urine pH 6.0 (5.0 - 8.0) 04/15/21 21:39 Ur Specific [place] 1.020 (1.000-1.030) 04/15/21 21:39 Urine Protein 1+ (NEGATIVE) 04/15/21 21:39 Urine Glucose (UA) Negative (NEGATIVE) 04/15/21 21:39 Urine Ketones 2+ (NEGATIVE) 04/15/21 21:39 Urine Occult Blood Negative (NEGATIVE) 04/15/21 21:39 Urine Nitrite Negative (NEGATIVE) 04/15/21 21:39 Urine Bilirubin Negative (NEGATIVE) 04/15/21 21:39 Urine Urobilinogen Normal (NORMAL) 04/15/21 21:39 Ur Leukocyte Esterase Negative (NEGATIVE) 04/15/21 21:39 Urine RBC None seen /HPF (0-3) 04/15/21 21:39 Urine WBC 0-2 /HPF (0-5) 04/15/21 21:39 Ur Squamous Epith Cells Rare /HPF (NEGATIVE) 04/15/21 21:39 Urine Bacteria Trace /HPF (NEGATIVE) 04/15/21 21:39 Ur Culture Indicated? No/not indicated 04/15/21 21:39 SARS-CoV-2 (PCR) Negative (NEGATIVE) 04/16/21 00:53 Influenza Type A (PCR) Negative (NEGATIVE) 04/16/21 00:53 Influenza Type B (PCR) Negative (NEGATIVE) 04/16/21 00:53 RSV (PCR) Negative (NEGATIVE) 04/16/21 00:53 Tissue Pathology To follow 04/16/21 14:27 Blood Type O NEGATIVE 04/16/21 13:56 Antibody Screen Negative 04/16/21 13:56 Crossmatch See Detail 04/16/21 13:56 Plan (1) Gastrointestinal anastomotic leak: Status: Acute Plan: as above (2) Adenocarcinoma, colon: Status: Acute Plan: Will plan adjuvant therapy when she is improved (3) Anuria: Status: Acute (4) Acute hyperkalemia: Status: Acute Plan: resolved
[2021-04-26] MEDS ORDERED: MAGNESIUM SULFATE 1 GRAM/100 mL PREMIX 1 GM/100 ML BAG IV PRN (13:38)
--- NOTE | 2021-04-26 18:16 | NOTE.SOAP ---
Soap Note Note for Day of Date of Exam: 04/26/21 Subjective Data Subjective Data: Continues slow improvement. Eating a little better. K+ and Mg++ being replaced Objective Data Temperature: 98.7 F Pulse Rate: 103 Respiratory Rate: 14 Blood Pressure: 105/63 O2 Sat by Pulse Oximetry: 96 Objective Data: abdomen soft , wound vacuum in place mid-portion of abdominal wound. Where i steri-striped the wound uperior and inferior with small amount of purulent drainage but no obvious undrained pus... WBC decreased to 16 k. Hgb is 8.2 Assessment Assessment: Gaining strength Plan Plan: Replace K+ and Mg++. Hopefully discharge home with home health Tuesday as she will not be going to SNF.
[2021-04-27] MEDS: FLAGYL IV PREMIX 500 MG BAG 500 MG/100 ML BAG IV SCH ×3 (05:13→21:45)
[2021-04-27] MEDS: LIBRIUM PO SCH ×3 (05:14→21:45)
[2021-04-27 07:23] LABS: BASOPHILS # (AUTO) 0.1 X10^3/uL (0.0-0.1); BASOPHILS % (AUTO) 0.5 % (0.2-1.0); EOSINOPHILS # (AUTO) 0.6 x10^3/uL (0.0-0.2); EOSINOPHILS % (AUTO) 2.9 % (0.9-2.9); HEMATOCRIT 23.3 % (36.0-47.0); HEMOGLOBIN 7.7 g/dL (12.0-16.0); LYMPHOCYTES # (AUTO) 0.8 X10^3/uL (1.3-2.9); LYMPHOCYTES % (AUTO) 4.3 % (21.0-51.0); MEAN CORPUSCULAR HEMOGLOBIN 29.4 pg (27.0-34.0); MEAN CORPUSCULAR HGB CONC 33.2 g/dL (33.0-35.0); MEAN CORPUSCULAR VOLUME 88.6 fL (80.0-100.0); MEAN PLATELET VOLUME 7.2 fL (7.4-11.0); MONOCYTES # (AUTO) 1.3 x10^3/uL (0.3-0.8); MONOCYTES % (AUTO) 6.5 % (0.0-13.0); NEUTROPHILS # (AUTO) 16.5 x10^3/uL (2.2-4.8); NEUTROPHILS % (AUTO) 85.8 % (42.0-75.0); PLATELET COUNT 414 X10^3/uL (150.0-450.0); RED BLOOD COUNT 2.63 X10^6/uL (3.5-5.4); WHITE BLOOD COUNT 19.2 X10^3/uL (3.6-10.0)
[2021-04-27 07:49] LABS: ALANINE AMINOTRANSFERASE 21 Units/L (12-78); ALKALINE PHOSPHATASE 79 Units/L (46-116); ASPARTATE AMINO TRANSFERASE 14 Units/L (15-37); BLOOD UREA NITROGEN 5 mg/dL (7-18); CALCIUM 7.4 mg/dL (8.5-10.1); CARBON DIOXIDE 25.8 mmol/L (21-32); CHLORIDE 106 mmol/L (98-107); CREATININE 0.56 mg/dL (0.55-1.02); MAGNESIUM 2.1 mg/dL (1.7-2.9); SODIUM 139 mmol/L (136-145); TOTAL PROTEIN 5.8 g/dL (6.4-8.2); eGFR NON BLACK RACES > 60 (>60)
[2021-04-27] MEDS: INVANZ INJ 1 GM VIAL 1 GM in NS 100 ML IV + SPIKE MINIBAG* 100 ML IV SCH (08:36)
[2021-04-27] MEDS: PROTONIX TAB 40 MG PO SCH (08:36)
[2021-04-27] MEDS: LOVENOX INJ 40 MG SYR SC SCH (08:39)
[2021-04-27] MEDS: PULMICORT NEB TX 0.5 MG NEB SCH ×2 (09:29→20:35)
[2021-04-27] MEDS: DUONEB 0.5 MG/3 MG (3 mL) NEB SCH ×4 (09:29→20:35)
[2021-04-27] MEDS: NICOTINE PATCH TD SCH (10:19)
[2021-04-27] MEDS: DILAUDID INJ IVP PRN (10:32)
--- NOTE | 2021-04-27 12:05 | RAD ---
HISTORYHX: PNEUMONIASTUDYCHEST, 1 VIEWCOMPARISONPortable chest April 24, 2021.FINDINGSThe trachea is midline. The cardiac silhouette is unremarkable. Right internal jugular central venous catheter remains in place the tip at the junction of the superior vena cava to the right atrium. The lungs are clear without focal infiltrate but the bilateral pleural effusions remain unchanged. The bony thorax is unremarkable.IMPRESSIONStable portable chest with no significant change in the bilateral pleural effusions or positioning of the right internal jugular central venous catheter.Electronically signed by: RONA AN (Apr 27, 2021 12:03:10)
--- NOTE | 2021-04-27 21:00 | NOTE.SOAP ---
Soap Note Note for Day of Date of Exam: 04/27/21 Subjective Data Subjective Data: Slow improvement following resection of leaking colon anastamosis following resection of colon cancer if transverse colon invading then antrum, Not going to get SNF placement and possibly no home health. Objective Data Temperature: 97.8 F Pulse Rate: 108 Respiratory Rate: 20 Blood Pressure: 104/62 O2 Sat by Pulse Oximetry: 91 Objective Data: eating a little better, A&O x 3 . Midline abdominal wound closing with wound vacuum in place and has small amount of purulence to the superior part of the wound Assessment Assessment: as above . Plan discharge home tomorrow Plan Plan: see above
[2021-04-28] MEDS: INVANZ INJ 1 GM VIAL 1 GM in NS 100 ML IV + SPIKE MINIBAG* 100 ML IV SCH (09:11)
[2021-04-28] MEDS: NICOTINE PATCH TD SCH (09:12)
[2021-04-28] MEDS: PROTONIX TAB 40 MG PO SCH (09:13)
[2021-04-28] MEDS: LOVENOX INJ 40 MG SYR SC SCH (09:14)
[2021-04-28] MEDS: PULMICORT NEB TX 0.5 MG NEB SCH ×2 (09:18→20:22)
[2021-04-28] MEDS: DUONEB 0.5 MG/3 MG (3 mL) NEB SCH ×4 (09:18→20:22)
[2021-04-28 09:45] LABS: BASOPHILS # (AUTO) 0.1 X10^3/uL (0.0-0.1); BASOPHILS % (AUTO) 0.5 % (0.2-1.0); EOSINOPHILS # (AUTO) 0.4 x10^3/uL (0.0-0.2); EOSINOPHILS % (AUTO) 2.2 % (0.9-2.9); HEMATOCRIT 25.6 % (36.0-47.0); HEMOGLOBIN 8.5 g/dL (12.0-16.0); LYMPHOCYTES # (AUTO) 0.9 X10^3/uL (1.3-2.9); LYMPHOCYTES % (AUTO) 4.6 % (21.0-51.0); MEAN CORPUSCULAR HEMOGLOBIN 29.8 pg (27.0-34.0); MEAN CORPUSCULAR HGB CONC 33.3 g/dL (33.0-35.0); MEAN CORPUSCULAR VOLUME 89.4 fL (80.0-100.0); MEAN PLATELET VOLUME 7.2 fL (7.4-11.0); MONOCYTES # (AUTO) 1.2 x10^3/uL (0.3-0.8); MONOCYTES % (AUTO) 6.3 % (0.0-13.0); NEUTROPHILS # (AUTO) 16.5 x10^3/uL (2.2-4.8); NEUTROPHILS % (AUTO) 86.4 % (42.0-75.0); PLATELET COUNT 450 X10^3/uL (150.0-450.0); RED BLOOD COUNT 2.87 X10^6/uL (3.5-5.4); RED CELL DISTRIBUTION WIDTH 15.9 % (11.6-16.5); WHITE BLOOD COUNT 19.1 X10^3/uL (3.6-10.0)
[2021-04-28 10:24] LABS: ALANINE AMINOTRANSFERASE 21 Units/L (12-78); ALBUMIN 2.3 g/dL (3.4-5.0); ALKALINE PHOSPHATASE 90 Units/L (46-116); ASPARTATE AMINO TRANSFERASE 15 Units/L (15-37); BLOOD UREA NITROGEN 5 mg/dL (7-18); CARBON DIOXIDE 22.3 mmol/L (21-32); CHLORIDE 106 mmol/L (98-107); COR CA(FOR HYPOALB) 9.4 mg/dL (8.5-10.1); CREATININE 0.51 mg/dL (0.55-1.02); SODIUM 142 mmol/L (136-145); TOTAL PROTEIN 6.5 g/dL (6.4-8.2); eGFR NON BLACK RACES > 60 (>60)
[2021-04-28] MEDS: K-DUR TAB 20 MEQ PO PRN ×2 (14:30→18:15)
[2021-04-28] MEDS: FLAGYL IV PREMIX 500 MG BAG 500 MG/100 ML BAG IV SCH (15:00)
[2021-04-28] MEDS: DIFLUCAN PO SCH (15:45)
[2021-04-28] MEDS: VSL#3 PO SCH (16:00)
[2021-04-28] MEDS: LIBRIUM PO SCH ×2 (16:31→21:09)
--- NOTE | 2021-04-28 18:36 | NOTE.SOAP ---
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 2 weeks postoperatively patient had evidence of a leak from the colon anastomosis requiring laparotomy with resection of the leaking colon, end colostomy and Gregg pouch. Gastrojejunostomy and duodenal stump were intact. Post procedure she has done well. She has maintained elevated white blood cell count but intra-abdominal CT scan shows no obvious abscess. Chest x-ray shows bilateral pleural effusons but no evidence of pneumonia. Colostomy is functioning well. She is improving but she remains globally week and unable to ambulate by herself. She was considered for alf facility placement but could not do it because of financial concerns. She remains alert and oriented. She has a long history of tobacco abuse and alcohol abuse. She no longer has any evidence of alcohol withdrawal. He is eating better and taking liquids well. We have had to replace her potassium and magnesium as per the security ambassador service. Wound vacuum changed by me today, see below Objective Data Temperature: 98.2 F Pulse Rate: 110 Respiratory Rate: 18 Blood Pressure: 127/78 O2 Sat by Pulse Oximetry: 98 Objective Data: A&O x 3 . Gaining strength but still very weak. Midline abdominal wound with only some superficial purulence. Wound vacuum changed by me at bedside. Assessment Assessment: Adenocarcinoma of colon invading antrum of stomach complicated by colon anastamotic leak requiring resection , end colostomy and Gregg pouch. Will need chemotherapy. Needs to gain strength. D/C home soon. Plan Plan: See assessment above
[2021-04-29 05:43] LABS: ALANINE AMINOTRANSFERASE 15 Units/L (12-78); ALKALINE PHOSPHATASE 80 Units/L (46-116); ASPARTATE AMINO TRANSFERASE 16 Units/L (15-37); BLOOD UREA NITROGEN 3 mg/dL (7-18); CALCIUM 7.7 mg/dL (8.5-10.1); CARBON DIOXIDE 22.5 mmol/L (21-32); CHLORIDE 109 mmol/L (98-107); COR CA(FOR HYPOALB) 9.3 mg/dL (8.5-10.1); CREATININE 0.45 mg/dL (0.55-1.02); SODIUM 143 mmol/L (136-145); eGFR NON BLACK RACES > 60 (>60)
[2021-04-29] MEDS: LIBRIUM PO SCH (05:52)
[2021-04-29 06:27] LABS: BASOPHILS # (AUTO) 0.1 X10^3/uL (0.0-0.1); BASOPHILS % (AUTO) 0.6 % (0.2-1.0); EOSINOPHILS # (AUTO) 0.3 x10^3/uL (0.0-0.2); EOSINOPHILS % (AUTO) 1.9 % (0.9-2.9); HEMATOCRIT 22.1 % (36.0-47.0); HEMOGLOBIN 7.4 g/dL (12.0-16.0); LYMPHOCYTES # (AUTO) 0.9 X10^3/uL (1.3-2.9); LYMPHOCYTES % (AUTO) 6.3 % (21.0-51.0); MEAN CORPUSCULAR HEMOGLOBIN 29.3 pg (27.0-34.0); MEAN CORPUSCULAR HGB CONC 33.5 g/dL (33.0-35.0); MEAN CORPUSCULAR VOLUME 87.3 fL (80.0-100.0); MEAN PLATELET VOLUME 7.1 fL (7.4-11.0); MONOCYTES % (AUTO) 7.3 % (0.0-13.0); NEUTROPHILS # (AUTO) 11.6 x10^3/uL (2.2-4.8); NEUTROPHILS % (AUTO) 83.9 % (42.0-75.0); PLATELET COUNT 413 X10^3/uL (150.0-450.0); RED BLOOD COUNT 2.53 X10^6/uL (3.5-5.4); RED CELL DISTRIBUTION WIDTH 15.7 % (11.6-16.5); WHITE BLOOD COUNT 13.9 X10^3/uL (3.6-10.0)
[2021-04-29] MEDS: DIFLUCAN PO SCH (09:15)
[2021-04-29] MEDS: PROTONIX TAB 40 MG PO SCH (09:15)
[2021-04-29] MEDS: LOVENOX INJ 40 MG SYR SC SCH (09:15)
[2021-04-29] MEDS: VSL#3 PO SCH (09:15)
[2021-04-29] MEDS: NICOTINE PATCH TD SCH (09:15)
[2021-04-29] MEDS: PULMICORT NEB TX 0.5 MG NEB SCH ×2 (09:38→20:20)
[2021-04-29] MEDS: DUONEB 0.5 MG/3 MG (3 mL) NEB SCH ×4 (09:38→20:20)
--- NOTE | 2021-04-29 18:13 | NOTE.SOAP ---
Soap Note Note for Day of Date of Exam: 04/29/21 Subjective Data Subjective Data: Continues to improve. Objective Data Temperature: 98.1 F Pulse Rate: 104 Respiratory Rate: 18 Blood Pressure: 123/69 O2 Sat by Pulse Oximetry: 98 Objective Data: Midline wound with wound vacuum in place . Physical therapy progressing. Assessment Assessment: S/P leak of colon anastamosis. End colostomy doing well. Plan Plan: Plan to d/c home soon.
[2021-04-29] MEDS: VISTARIL PO SCH (21:52)
[2021-04-30] MEDS: DILAUDID INJ IVP PRN ×2 (04:55→23:55)
[2021-04-30] MEDS: VISTARIL PO SCH ×3 (05:34→21:05)
[2021-04-30 09:14] LABS: BASOPHILS # (AUTO) 0.1 X10^3/uL (0.0-0.1); BASOPHILS % (AUTO) 1.1 % (0.2-1.0); EOSINOPHILS # (AUTO) 0.4 x10^3/uL (0.0-0.2); EOSINOPHILS % (AUTO) 3.8 % (0.9-2.9); HEMATOCRIT 23.7 % (36.0-47.0); HEMOGLOBIN 7.8 g/dL (12.0-16.0); LYMPHOCYTES # (AUTO) 0.9 X10^3/uL (1.3-2.9); LYMPHOCYTES % (AUTO) 8.1 % (21.0-51.0); MEAN CORPUSCULAR HGB CONC 32.8 g/dL (33.0-35.0); MEAN CORPUSCULAR VOLUME 88.4 fL (80.0-100.0); MEAN PLATELET VOLUME 7.2 fL (7.4-11.0); MONOCYTES # (AUTO) 0.9 x10^3/uL (0.3-0.8); MONOCYTES % (AUTO) 8.2 % (0.0-13.0); NEUTROPHILS % (AUTO) 78.8 % (42.0-75.0); PLATELET COUNT 377 X10^3/uL (150.0-450.0); RED BLOOD COUNT 2.68 X10^6/uL (3.5-5.4); RED CELL DISTRIBUTION WIDTH 15.7 % (11.6-16.5); WHITE BLOOD COUNT 11.4 X10^3/uL (3.6-10.0)
[2021-04-30 09:27] LABS: ALANINE AMINOTRANSFERASE 13 Units/L (12-78); ALKALINE PHOSPHATASE 75 Units/L (46-116); ASPARTATE AMINO TRANSFERASE 19 Units/L (15-37); BLOOD UREA NITROGEN 4 mg/dL (7-18); CALCIUM 7.8 mg/dL (8.5-10.1); CARBON DIOXIDE 24.9 mmol/L (21-32); CHLORIDE 107 mmol/L (98-107); COR CA(FOR HYPOALB) 9.4 mg/dL (8.5-10.1); CREATININE 0.47 mg/dL (0.55-1.02); SODIUM 142 mmol/L (136-145); TOTAL PROTEIN 6.4 g/dL (6.4-8.2); eGFR NON BLACK RACES > 60 (>60)
[2021-04-30] MEDS: DUONEB 0.5 MG/3 MG (3 mL) NEB SCH ×4 (09:27→20:20)
[2021-04-30] MEDS: PULMICORT NEB TX 0.5 MG NEB SCH ×2 (09:27→20:20)
[2021-04-30] MEDS: VSL#3 PO SCH (10:01)
[2021-04-30] MEDS: DIFLUCAN PO SCH (10:01)
[2021-04-30] MEDS: NICOTINE PATCH TD SCH (10:01)
[2021-04-30] MEDS: PROTONIX TAB 40 MG PO SCH (10:01)
[2021-04-30] MEDS: LOVENOX INJ 40 MG SYR SC SCH (10:02)
--- NOTE | 2021-05-01 00:03 | NOTE.SOAP ---
Soap Note Note for Day of Date of Exam: 04/30/21 Subjective Data Subjective Data: continues to improve. Walked a little bit today. Objective Data Temperature: 7.2 F Pulse Rate: 79 Respiratory Rate: 16 O2 Sat by Pulse Oximetry: 96 Objective Data: ostomy working well. midline wound with little drainage , WBC decreased to 11k.S/P Assessment Assessment: S/P leak of colon anastamosis. Doing well Plan Plan: D/C home in AM.
[2021-05-01] MEDS: VISTARIL PO SCH (05:58)
[2021-05-01 08:22] VITALS: BP 133/69
[2021-05-01] MEDS: DIFLUCAN PO SCH (09:07)
[2021-05-01] MEDS: NICOTINE PATCH TD SCH (09:07)
[2021-05-01] MEDS: VSL#3 PO SCH (09:08)
[2021-05-01] MEDS: PROTONIX TAB 40 MG PO SCH (09:08)
[2021-05-01] MEDS: LOVENOX INJ 40 MG SYR SC SCH (09:16)
[2021-05-01] MEDS: PULMICORT NEB TX 0.5 MG NEB SCH (09:49)
[2021-05-01] MEDS: DUONEB 0.5 MG/3 MG (3 mL) NEB SCH (09:49)
--- NOTE | 2021-05-01 12:47 | PCM.DCPLAN ---
DISCHARGE SUMMARY Admission Date Date of Admission: 04/16/21 Discharge Date Discharge Date: 05/01/21 Admission Diagnoses (1) Gastrointestinal anastomotic leak: Status: Acute (2) Adenocarcinoma, colon: Status: Acute (3) Anuria: Status: Acute (4) Acute hyperkalemia: Status: Acute Discharge Diagnoses Discharge Diagnosis: same Discharge Medications Discharge Medications: Home Medication List chlordiazepoxide HCl 20 mg PO BID #60 cap MDD 2 05/01/21 [Rx] oxycodone-acetaminophen [Percocet] 1 tab PO Q6H PRN #30 tab MDD 4 05/01/21 [Rx] potassium chloride 20 meq PO DAILY #60 tab 05/01/21 [Rx] Prescriptions: chlordiazepoxide HCl [facility] [place] oxycodone-acetaminophen [Percocet] [facility] [place] potassium chloride [facility] [place] Hospital Course Vital Signs: Temperature 98.9 F Pulse Rate [Right] 114 Pulse Rate 108 Respiratory Rate 22 Blood Pressure [Right Arm] 133/69 Blood Pressure [Left Arm] 118/76 Blood Pressure 123/69 O2 Sat by Pulse Oximetry 93 Latest Lab Results: Laboratory Last Values WBC 11.4 X10^3/uL (3.6-10.0) H 04/30/21 08:50 RBC 2.68 X10^6/uL (3.5-5.4) L 04/30/21 08:50 Hgb 7.8 g/dL (12.0-16.0) L 04/30/21 08:50 Hct 23.7 % (36.0-47.0) L 04/30/21 08:50 MCV 88.4 fL (80.0-100.0) 04/30/21 08:50 MCH 29.0 pg (27.0-34.0) 04/30/21 08:50 MCHC 32.8 g/dL (33.0-35.0) L 04/30/21 08:50 RDW 15.7 % (11.6-16.5) 04/30/21 08:50 Plt Count 377 X10^3/uL (150.0-450.0) 04/30/21 08:50 Plt Count Comment Increased (ADEQUATE) A 04/23/21 05:42 MPV 7.2 fL (7.4-11.0) L 04/30/21 08:50 Neut % (Auto) 78.8 % (42.0-75.0) H 04/30/21 08:50 Lymph % (Auto) 8.1 % (21.0-51.0) L 04/30/21 08:50 [place] % (Auto) 8.2 % (0.0-13.0) 04/30/21 08:50 Eos % (Auto) 3.8 % (0.9-2.9) H 04/30/21 08:50 Baso % (Auto) 1.1 % (0.2-1.0) H 04/30/21 08:50 Neut # (Auto) 9.0 x10^3/uL (2.2-4.8) H 04/30/21 08:50 Lymph # (Auto) 0.9 X10^3/uL (1.3-2.9) L 04/30/21 08:50 [place] # (Auto) 0.9 x10^3/uL (0.3-0.8) H 04/30/21 08:50 Eos # (Auto) 0.4 x10^3/uL (0.0-0.2) H 04/30/21 08:50 Baso # (Auto) 0.1 X10^3/uL (0.0-0.1) 04/30/21 08:50 Absolute Nucleated RBC 0.1 /100WBC 04/30/21 08:50 Total Counted 100 04/23/21 05:42 Neutrophils % (Manual) 73 % (39-76) 04/23/21 05:42 Band Neutrophils % 4 % (0-10) 04/23/21 05:42 Lymphocytes % (Manual) 6 % (13-43) L 04/23/21 05:42 Monocytes % (Manual) 10 % (4-9) H 04/23/21 05:42 Eosinophils % (Manual) 3 % (0-6) 04/23/21 05:42 Metamyelocytes % 4 04/23/21 05:42 Myelocytes % 2 04/21/21 04:26 Plt Morphology Comment Normal (NORMAL) 04/23/21 05:42 RBC Morphology Normal (NORMAL) 04/23/21 05:42 Hypochromasia Slight A 04/20/21 04:25 Sodium 142 mmol/L (136-145) 04/30/21 08:50 Corrected Sodium TNP 04/30/21 08:50 Potassium 3.7 mmol/L (3.5-5.1) 04/30/21 08:50 Chloride 107 mmol/L (98-107) 04/30/21 08:50 Carbon Dioxide 24.9 mmol/L (21-32) 04/30/21 08:50 BUN 4 mg/dL (7-18) L 04/30/21 08:50 Creatinine 0.47 mg/dL (0.55-1.02) L 04/30/21 08:50 Est GFR (MDRD) Af Amer > 60 (>60) 04/30/21 08:50 Est GFR (MDRD) Non-Af > 60 (>60) 04/30/21 08:50 Glucose 108 mg/dL (65-99) H 04/30/21 08:50 POC Glucose (mg/dL) 109 mg/dL (65-99) H 04/27/21 20:01 Lactic Acid 1.3 mmol/L (0.4-2.0) 04/16/21 15:25 Calcium 7.8 mg/dL (8.5-10.1) L 04/30/21 08:50 Corrected Calcium 9.4 mg/dL (8.5-10.1) 04/30/21 08:50 Phosphorus 2.4 mg/dL (2.6-4.7) L 04/24/21 05:23 Magnesium 2.1 mg/dL (1.7-2.9) 04/27/21 06:18 Total Bilirubin 0.30 mg/dL (0.2-1.0) 04/30/21 08:50 AST 19 Units/L (15-37) 04/30/21 08:50 ALT 13 Units/L (12-78) 04/30/21 08:50 Alkaline Phosphatase 75 Units/L (46-116) 04/30/21 08:50 Total Protein 6.4 g/dL (6.4-8.2) 04/30/21 08:50 Albumin 2.0 g/dL (3.4-5.0) L 04/30/21 08:50 Globulin 4.4 g/dL (2.5-4.5) 04/30/21 08:50 Albumin/Globulin Ratio 0.5 Ratio (1.1-2.1) L 04/30/21 08:50 Prealbumin 9.9 mg/dL (18-35.7) L 04/30/21 04:15 Triglycerides 115 mg/dL (0-150) 04/23/21 05:42 Specimen Type Clean catch urine 04/15/21 21:39 Urine Color Dark yellow (YELLOW) 04/15/21 21:39 Urine Appearance Clear (CLEAR) 04/15/21 21:39 Urine pH 6.0 (5.0 - 8.0) 04/15/21 21:39 Ur Specific [place] 1.020 (1.000-1.030) 04/15/21 21:39 Urine Protein 1+ (NEGATIVE) 04/15/21 21:39 Urine Glucose (UA) Negative (NEGATIVE) 04/15/21 21:39 Urine Ketones 2+ (NEGATIVE) 04/15/21 21:39 Urine Occult Blood Negative (NEGATIVE) 04/15/21 21:39 Urine Nitrite Negative (NEGATIVE) 04/15/21 21:39 Urine Bilirubin Negative (NEGATIVE) 04/15/21 21:39 Urine Urobilinogen Normal (NORMAL) 04/15/21 21:39 Ur Leukocyte Esterase Negative (NEGATIVE) 04/15/21 21:39 Urine RBC None seen /HPF (0-3) 04/15/21 21:39 Urine WBC 0-2 /HPF (0-5) 04/15/21 21:39 Ur Squamous Epith Cells Rare /HPF (NEGATIVE) 04/15/21 21:39 Urine Bacteria Trace /HPF (NEGATIVE) 04/15/21 21:39 Ur Culture Indicated? No/not indicated 04/15/21 21:39 SARS-CoV-2 (PCR) Negative (NEGATIVE) 04/16/21 00:53 Influenza Type A (PCR) Negative (NEGATIVE) 04/16/21 00:53 Influenza Type B (PCR) Negative (NEGATIVE) 04/16/21 00:53 RSV (PCR) Negative (NEGATIVE) 04/16/21 00:53 Tissue Pathology To follow 04/16/21 14:27 Blood Type O NEGATIVE 04/16/21 13:56 Antibody Screen Negative 04/16/21 13:56 Crossmatch See Detail 04/16/21 13:56 Hospital Course: This 50-year-old female had been seen in early March and was operated on for an adenocarcinoma of the transverse colon invading the antrum of the stomach requiring composite resection with colon anastomosis and gastrojejunostomy. She did well and was seen at approximately 2 weeks postoperatively in the office and was doing well. Several days later she presented with abdominal distention, evidence of infection, abdominal pain and CT scan showing free air. She was taken to the operating suite where she underwent laparotomy with findings of a leaking colonic anastomosis. This area was resected and she was given a right lower quadrant colostomy with a long Gregg pouch. Gastrojejunostomy was intact. Abdomen was washed out and the fascia closed with the skin left partially open and a wound vacuum placed in this. She has had a long postoperative course with marked weeakness, hypokalemia, elevated white blood cell count, and the midline wound. She had a follow-up CAT scan because her white blood cell count remain elevated which showed no evidence of intra- abdominal infection or undrained fluid. She remained on IV antibiotics and that has now been discontinued. Her white blood cell count is 11,000. She was treated with TPN and is now taking a better diet. She had marked weakness and has been undergoing physical therapy and is greatly improved ,now able to a walk approximately 20 feet with a walker with no assistance. This patient had a history of alcohol and tobacco abuse. She was treated with a nicotine patch. At the time her previous hospitalization she had delirium tremens treated prophylactically with Valium .This time she had no evidence of delirium tremens. Her colostomy is functioning well. Wound has been partially closed with 3 open segments each measuring 4x2x0.5 cm Home Health will continue to help her with the wound with possible wound vacuum and also ostomy care. She will follow up with me in 2 weeks. She will be on her usual medications plus Librium 20 mg b.i.d., potassium chloride 20 mEq daily, and Percocet 5 mg tablets, one every 6 hours. Pain. He will follow up with me in 2 weeks. She had an appointment for Oncology to assess her as I believe she needs adjuvant therapy. That will be rescheduled. At some point in the future will consider her for colostomy takedown and re- anastomosis. Instructions Instructions: Fall Prevention in the Home, Adult, [id number] How To Use a Four-Wheeled Walker Exploratory Laparotomy, Adult, Care After Wound Infection, [id number] Open Colectomy, Care After Hyperkalemia, [id number] Negative Pressure Wound Therapy Dressing Care Leukocytosis Hyponatremia, [id number] Open Colectomy Forms: Precautions for COVID19 Patient Portal Social Distancing
== END 2021-05-01 12:00 | disposition home health service (06) | DRG 330 ==
LOC: ER 20:56 → MED/SURG 04-16 01:14 → ICU 04-16 15:44 → MED/SURG 04-21 15:33
PROVIDERS: ADMIT Surgery; ATTEND Surgery
DX: R62.7 Adult failure to thrive; C18.9 Malignant neoplasm of colon, unspecified; Z20.822 Contact with and (suspected) exposure to COVID-19; Z90.49 Acquired absence of other specified parts of digestive tract; E87.5 Hyperkalemia; R34 Anuria and oliguria; K91.89 Other postprocedural complications and disorders of digestive system; D64.89 Other specified anemias